=== PATIENT | female | born 1970 | race Two or more races ===

== ENCOUNTER 2024-02-11 07:49 | Outpatient (REF) | payer OTHER, SELFPAY ==
--- NOTE | ~2024-02-11 | XR_ITS ---
EXAMINATION: XR KNEE, LEFT CLINICAL INFORMATION: Chronic left knee pain. COMPARISON: None available. TECHNIQUE: Four views of the left knee. FINDINGS: No acute fracture or dislocation. No significant joint space narrowing. Tiny patellofemoral and medial compartment marginal osteophytes. No osseous erosion. No abnormal soft tissue calcification. No significant joint effusion. XR/XR knee LT 4V IMPRESSION: Minimal patellofemoral and medial compartment arthrosis.
[2024-02-11 08:17] LABS: MANUAL DIFF FLAG NO
[2024-02-11 08:28] LABS: Basophils Absolute Auto 0.1 X10*3/uL (0.0-0.2); Basophils Percent Auto 0.9 % (0-2); Eosinophils Absolute Auto 0.3 X10*3/uL (0.0-0.4); Eosinophils Percent Auto 3.9 % (0-4); Hematocrit 37.5 % (37.0-47.0); Hemoglobin 12.1 g/dl (12.0-16.0); Imm Gran Abs Auto 0.02 X10*3/uL (0.00-0.03); Imm Gran Pct Auto 0.3 % (0.0-0.4); Lymphocytes Absolute Auto 2.2 X10*3/uL (1.2-4.9); Lymphocytes Percent Auto 27.8 % (20-40); Mean Corpuscular HGB Conc 32.3 g/dl (31.0-35.0); Mean Corpuscular Hemoglobin 29.5 pg (27.0-33.0); Mean Corpuscular Volume 91.5 fL (80.0-98.0); Mean Platelet Volume 10.3 fL (9.4-12.3); Monocytes Absolute Auto 0.6 X10*3/uL (0.1-1.2); Monocytes Percent Auto 7.3 % (2-11); Neutrophils Absolute Auto 4.6 x10*3/uL (2.0-8.3); Neutrophils Percent Auto 59.8 % (45-73); Platelet Count 373 X10*3/uL (160-400); Red Cell Distribution Width 12.5 % (11.0-16.0); White Blood Count 7.8 X10*3/uL (4.8-10.8)
[2024-02-11 08:42] LABS: Estimated Average Glucose 105 mg/dL; Hemoglobin A1c % 5.3 % (<6.0)
[2024-02-11 09:20] LABS: Alanine Aminotransferase 21 U/L (0-31); Albumin Level 3.8 g/dL (3.5-5.0); Alkaline Phosphatase 69 U/L (39-117); Anion Gap 10 (12-20); Aspartate Amino Transferase 21 U/L (5-31); Bilirubin Total 0.6 mg/dL (0.0-1.0); Blood Urea Nitrogen 17 mg/dL (9-16); Calcium 9.1 mg/dL (8.4-10.2); Carbon Dioxide 26 mmol/L (22-29); Chloride 107 mmol/L (96-108); Cholesterol 199 mg/dL (<200); Estimated Glomerular Filt Rate > 60; Glucose Random 101 mg/dL (60-115); HDL Cholesterol 64 mg/dL (>40); LDL Cholesterol Calculated 109 mg/dL (<100); Potassium 4.9 mmol/L (3.3-5.1); Sodium 138 mmol/L (135-145); Triglycerides 131 mg/dL (<150)
[2024-02-11 09:35] LABS: TSH reflex Free T4 1.21 uIU/mL (0.32-4.0)
[2024-02-11 10:13] LABS: Appearance Urine Clear; Color Urine Yellow; Glucose Urine UA Negative (Negative); Leukocyte Esterase Urine Negative (Negative); Nitrite Urine Negative (Negative); Urine Blood Negative (Negative); Urine Ketones Negative (Negative); Urine Protein Negative (Neg-Trace)
[2024-02-11 10:30] LABS: Bacteria Urine Trace (None Seen); Hyaline Casts Urine 0-2 /LPF (0-2); RBC Urine 0-2 /HPF (0-2); WBC Urine 0-5 /HPF (0-5)
[2024-02-17 14:38] LABS: Vitamin D 25-OH, D2 <4 ng/mL; Vitamin D 25-OH, D3 34 ng/mL; Vitamin D 25-OH, Total 34 ng/mL (30-100)
== END 2024-02-11 07:50 | disposition home or self-care (01) ==
LOC: HO.XRAY 07:49
PROVIDERS: PCP Family Medicine; Visit Provider Family Medicine
DX: Z13.6 Encounter for screening for cardiovascular disorders (principal); Z13.29 Encounter for screening for other suspected endocrine disorder; Z13.220 Encounter for screening for lipoid disorders; Z13.0 Encounter for screening for diseases of the blood and blood-forming organs and certain disorders involving the immune mechanism; M25.562 Pain in left knee; G89.29 Other chronic pain; E66.9 Obesity, unspecified; Z68.32 Body mass index [BMI] 32.0-32.9, adult
CPT/HCPCS: 36415; 73564; 80053; 80061; 81001; 82306; 83036; 84443; 85025

== ENCOUNTER 2024-03-02 10:03 | Outpatient (REF) | payer OTHER, SELFPAY ==
--- NOTE | ~2024-03-02 | MM_ITS ---
EXAMINATION: MM SCREENING DIGITAL BREAST TOMOSYNTHESIS, BILATERAL CLINICAL INFORMATION: Screening. Asymptomatic. COMPARISON: Mammography: There are no prior mammograms for comparison. TECHNIQUE: Digital breast tomosynthesis is performed in both the craniocaudal and mediolateral oblique views along with computer-aided detection (CAD). Synthesized 2D images are generated from the tomosynthesis. FINDINGS: There are scattered areas of fibroglandular density (ACR BI-RADS breast composition Category b). There are no significant masses, abnormal calcifications, or other abnormalities. MM/MM tomosynthesis screening BI IMPRESSION: No mammographic evidence of malignancy. ASSESSMENT: BI-RADS BI-RADS 1 - Negative RECOMMENDATION: Routine annual mammography screening. 1 year F/U This examination should not preclude the clinical evaluation of a suspicious palpable abnormality. This patient's information was entered into a reminder system with a target due date for their next mammogram.
== END 2024-03-02 10:04 | disposition home or self-care (01) ==
LOC: HO.MAMMO 10:03
PROVIDERS: PCP Family Medicine; Visit Provider Family Medicine
DX: Z12.31 Encounter for screening mammogram for malignant neoplasm of breast (principal)
CPT/HCPCS: 77063; 77067

== ENCOUNTER → 2024-03-02 10:15 | Outpatient (BNV) | payer OTHER, SELFPAY | PROVIDERS: PCP Family Medicine; Visit Provider Radiology Diagnostic Radiology | DX: Z12.31 Encounter for screening mammogram for malignant neoplasm of breast (principal) | CPT/HCPCS: 77063; 77067 ==

== ENCOUNTER 2024-03-19 15:36 | Outpatient (REF) | payer OTHER, SELFPAY ==
[2024-03-23 02:24] LABS: HPV mRNA E6/E7 rflx Not Detected (Not Detected)
== END 2024-03-19 15:37 | disposition home or self-care (01) ==
LOC: HO.HHCLNP 15:36
PROVIDERS: Visit Provider Family Medicine
DX: Z12.4 Encounter for screening for malignant neoplasm of cervix (principal); Z11.51 Encounter for screening for human papillomavirus (HPV)
CPT/HCPCS: 87624; 88142

== ENCOUNTER 2024-04-03 09:00 | Outpatient (RCR) | payer OTHER, SELFPAY | END 2024-04-17 15:56 | disposition home or self-care (01) | LOC: HO.PT 09:00 | PROVIDERS: PCP Family Medicine; Visit Provider Family Medicine | DX: M25.562 Pain in left knee (principal) | CPT/HCPCS: 97110; 97112; 97161 ==

== ENCOUNTER 2024-07-20 10:21 | Outpatient (REF) | payer OTHER, SELFPAY ==
--- NOTE | ~2024-07-20 | XR_ITS ---
EXAMINATION: XR KNEE, LEFT CLINICAL INFORMATION: left knee pain. COMPARISON: xray february 11 2024 TECHNIQUE: Four views of the left knee. FINDINGS: No acute fracture or dislocation. No significant joint space narrowing. Tiny patellofemoral and medial compartment marginal osteophytes. No osseous erosion. No abnormal soft tissue calcification. No significant joint effusion. XR/XR knee LT 4V IMPRESSION: Minimal patellofemoral and medial compartment arthrosis.no change Electronically signed by: Thony Keith MD 07/26/2024 08:28 PM EDT
== END 2024-07-20 10:22 | disposition home or self-care (01) ==
LOC: HO.XRAY 10:21
PROVIDERS: PCP Family Medicine; Visit Provider General Practice
DX: M25.562 Pain in left knee (principal)
CPT/HCPCS: 73564

== ENCOUNTER 2024-08-10 12:40 | Outpatient (REF) | payer OTHER, SELFPAY ==
--- NOTE | 2024-08-10 12:43 | EMG_ITS ---
Chief complaint: Left hand numbness History of right CTR more than 10 years ago. Reason for referral: Evaluate for Carpal Tunnel Syndrome Referred by: Dr. Lyles Procedure done: Left upper extremity NCS/EMG Precautions and/or limitations: None The limb temperature was monitored continuously and remained between 32-36 degrees C during the performance of the NCS. Nerve Conduction Studies Anti Sensory Summary Table ?Stim Site NR Onset (ms) Norm Onset (ms) Peak (ms) Norm Peak (ms) O-P Amp (?V) Norm O-P Amp Site1 Site2 Delta-0 (ms) Dist (cm) Chad (m/s) Norm Chad (m/s) Left Median Anti Sensory (2nd Digit) Wrist ? 3.7 4.6 <3.6 10.1 >10 Wrist 2nd Digit 3.7 14.0 38 Left Radial Anti Sensory (Thumb) Forearm ? 2.1 2.6 <3.1 21.1 Forearm Thumb 2.1 0.0 Left Ulnar Anti Sensory (5th Digit) Wrist ? 2.8 3.5 <3.7 41.9 >15.0 Wrist 5th Digit 2.8 14.0 50 Motor Summary Table ?Stim Site NR Onset (ms) Norm Onset (ms) O-P Amp (mV) Norm O-P Amp iAmp (mV) Amp (1st) (%) Site1 Site2 Delta-0 (ms) Dist (cm) Chad (m/s) Norm Chad (m/s) Left Median Motor (Abd Poll Brev) Wrist ? 5.5 <3.9 9.5 >4.5 12.0 100.0 Elbow Wrist 3.3 19.0 58 >45 Elbow ? 8.8 10.4 13.9 109.5 Left Ulnar Motor (Abd Dig Minimi) Wrist ? 2.8 <3.0 6.9 >5 8.7 100.0 B Elbow Wrist 3.3 17.0 52 >45 B Elbow ? 6.1 6.3 8.4 91.3 A Elbow B Elbow 1.8 10.0 56 >45 A Elbow ? 7.9 6.0 8.2 87.0 EMG ?Side Muscle Nerve Root Ins Act Fibs Psw Amp Dur Poly Recrt Int Pat Comment Left 1stDorInt Ulnar C8-T1 Nml Nml Nml Nml Nml 0 Nml Complete Left FlexCarRad Median C6-7 Nml Nml Nml Nml Nml 0 Nml Complete Left Biceps Musculocut C5-6 Nml Nml Nml Nml Nml 0 Nml Complete Left Triceps Radial C6-7-8 Nml Nml Nml Nml Nml 0 Nml Complete Left Deltoid Axillary C5-6 Nml Nml Nml Nml Nml 0 Nml Complete FINDINGS: Left median motor nerve showed prolonged distal latency, normal amplitude and normal conduction velocity. All other nerves tested were within normal. Concentric needle EMG was performed in selected muscles of the left upper extremity. Study did not reveal signs of electric abnormalities as shown in the table above. IMPRESSION: 1. This is an abnormal study. 2. There is electrodiagnostic evidence for left moderate-severe median neuropathy at the wrist, consistent with carpal tunnel syndrome. 3. There is no electrodiagnostic evidence for ulnar neuropathy, brachial plexopathy, or cervical radiculopathy. Thank you for your kind referral. Candy Manley MD, SARAH Board Certified, [place] Board [employer] and Rehabilitation (ABPMR) Board Certified, [place] Board of Electrodiagnostic Medicine (ABEM) CODIN [id number] [facility]
== END 2024-08-10 12:41 | disposition home or self-care (01) ==
LOC: HO.NEURO 12:40
PROVIDERS: PCP Family Medicine; Visit Provider General Practice
DX: R20.2 Paresthesia of skin (principal)
CPT/HCPCS: 95886; 95909

== ENCOUNTER → 2024-08-10 12:43 | Outpatient (BNV) | payer OTHER, SELFPAY | PROVIDERS: PCP Family Medicine; Visit Provider Physical Medicine & Rehabilitation | DX: G56.02 Carpal tunnel syndrome, left upper limb (principal) | CPT/HCPCS: 95886; 95909 ==

== ENCOUNTER 2025-01-16 15:02 | Outpatient (REF) | payer OTHER, SELFPAY ==
--- NOTE | ~2025-01-16 | US_ITS ---
CLINICAL HISTORY: AUB US pelvis transabdominal and transvaginal with Doppler Comparison: None Findings: Transabdominal scanning performed for overall anatomy. Transvaginal scanning performed for additional detail. Anteverted uterus is 9.5 cm length. Normal myometrium. Calcification within the lower uterine segment spanning 9 mm x 7 mm x 13 mm. No endometrial lesion, 6 mm thickness. Right ovary 2.2 x 0.9 x 1.3 cm. Left ovary 2.4 x 1.5 x 2.0 cm. Normal color Doppler with arterial/venous spectral tracing of both ovaries. No free fluid. IMPRESSION: 1. No acute process. 2. Lower uterine segment calcifications, which are indeterminate. This document has been electronically signed by: Gabriella Hackett MD on 01/16/2025 17:12:02
--- OUTSIDE RECORDS SUMMARY | 2025-01-16 17:41 | XMS_ITS | Encounter Summary ---
Author Organization [employer] [facility] [employer] Address [address] [place] [address] Care Team Providers Care Surface Miner Name Role Phone Namita Castañeda MD Primary Care Provider [phone] Encounter Details Date Type Department Care Team (Latest Contact Info) Description 2025 Travel Social History Tobacco Use Types Packs/Day Years Used Date Smoking Tobacco: Never Passive Smoke Exposure: Never Smokeless Tobacco: Never Alcohol Use Standard Drinks/Week Comments Never 0 (1 standard drink = 0.6 oz pur e alcohol) Depression Answer Date Recorded Patient Health Questionnaire-9 Score 0 02/10/2024 Patient Health Questionnaire-9 Score 0 02/10/2024 Last PHQ-9: Questionnaire Data Not on file 0 02/10/2024 Housing Stability Answer Date Recorded What is your housing situation today? I have garrett asher 01/31/[address] you li ve. Do you have problems with any of the following? None of the above 01/31/2024 Food Insecurity Answer Date Recorded Within the past 12 months, y ou worried that your food would run out before you got money to buy more: Never True 01/31/2024 Within the past 12 months,th e food you bought just didn't last and you didn't have enough money to get more: Never True Transportation Answer Date Recorded In the past 12 months, has l ack of transportation kept you from medical appts, meetings, work or from getting things needed for daily living? No 01/31/2024 Utilities Answer Date Recorded In the past 12 months, has t he electric, gas, oil or water company threatened to shut off services in your home? No 01/31/2024 Depression Answer Date Recorded Patient Health Questionnaire-2 Score 0 02/10/2024 Comments No Sex and Gender Information Value Date Recorded Sex Assigned at Female 06/21/2023 11:45 AM EDT Legal Sex Female 11:57 AM EDT Gender Identity Female 06/21/2023 11:45 AM EDT Sexual Orientation Straight 07/31/2024 9: 56 AM EDT Occupation Industry Job Start Date Job End Date Not on file Not on file Not on file Not on file documented as of this encounter Plan of Treatment Not on file documented as of this encounter Visit Diagnoses Not on filedocumented in this encounter Additional Health Concerns Assessment Noted Time PHQ-9 Depression Total Score: 0 02/10/20 1:20 PM EDT documented as of this encounter Care Teams Surface Miner Relationship Specialty Start Date End Date Namita Castañeda MD [address] [place] [address] PCP - General Family Medicine 02/10/24 documented as of this encounter
--- OUTSIDE RECORDS SUMMARY | 2025-01-16 17:41 | XMS_ITS | Encounter Summary ---
Author Organization [employer] Address [address] [place] [address] Care Team Providers Care Ophthalmology Surgical Technician Name Role Phone Namita Castañeda MD Primary Care Provider [phone] Reason for Visit * Reason Comments Routine Cleaning Dental Exam Encounter Details Date Type Department Care Team ([facility] Contact Info) Description 01/14/2025 9:00 AM EDT Office Visit [facility] [address] [place] [address] Mariel Marshall Social History Tobacco Use Types Packs/Day Years [...] on file documented as of this encounter Last Filed Vital Signs Vital Sign Reading Time Taken Comments Blood Pressure 128/72 01/14/2025 9:08 AM EDT Pulse - - Temperature - - Respiratory Rate - - Oxygen Saturation - - Inhaled Oxygen Concentration - - Weight - - Height - - Body Mass Index - - documented in this encounter Progress Notes * Mariel Marshall - 01/14/2025 9:00 AM EDT Patient ID: Ling Knott is a 55 y.o. female. Time Out: Timeout Date: 01/14/25, Timeout Time: 905 Location: [facility] Tooth: Maxilla and Mandible Procedure: Prophylaxis Verified the above with patient, produce assistant, and provider. Confirmed via patient's chart, intraorally and by radiographs. Biofuels Technology Manager: Yes. Language: Bermudian. Biofuels Technology Manager's Name: Love. Medical Hx: Vitals: Blood pressure 128/72, last menstrual period 12/31/2024. Medications, Med Hx reviewed with patient and updated in chart. Treatment Provided Dental procedures in this visit D1110 - PROPHYLAXIS - ADULT (Completed) Service provider: Mariel Lee provider: Alan Copeland DMD D1330 - ORAL HYGIENE INSTRUCTIONS (Completed) Service provider: Mariel Lee provider: Alan Copeland DMD Instruments Used: Ultrasonic Scalers, Hand Scalers, and Prophy angle Fluoride: N/A Oral Cancer Screening: No lesions Head/Neck Exam: No Lesions Calculus: Light and Generalized Plaque: Light and Localized Stain: Light and Localized Bleeding: Light and Localized Gingiva: Healthy OH: Good Perio Chart: Not Completed- Completed on 07/16/2024. Oral hygiene instructions provided to patient including brushing technique and flossing. Recommendations: Troup two times daily, modified keane technique, Floss daily, Electric toothbrush, Soft bristle toothbrush, Troup Tongue, Anti-sensitivity toothpaste Recall Frequency: 6 mo NV: Restorations Hygienist: Mariel Marshall RDH documented in this encounter Plan of Treatment Not on file documented as of this encounter Procedures Procedure Name Priority Date/Time Associated Diagnosis Comments PROPHYLAXIS - ADULT Routine 01/14/2025 9 :00 AM EDT ORAL HYGIENE INSTRUCTIONS Routine 2024 9:00 AM EDT documented in this encounter Visit Diagnoses Not on filedocumented in this encounter Additional Health Concerns Assessment Noted Time PHQ-9 Depression Total Score: 0 02/10/20 24 1:20 PM EDT documented as of this encounter Care Teams Ophthalmology Surgical Technician Relationship Specialty Start Date End Date Namita Castañeda MD [address] [place] [id number] PCP - General Family Medicine 02/10/24 documented as of this encounter
--- OUTSIDE RECORDS SUMMARY | 2025-01-16 17:41 | XMS_ITS | Encounter Summary ---
Author Organization [employer] [facility] Address [address] [place] [address] [address] [place] [address] Care Team Providers Care Promotion Manager Name Role Phone Namita Castañeda MD Primary Care Provider [phone] Reason for Referral * Imaging (Urgent) - Closed Specialty Diagnoses / Procedures Referred By Contac t Referred To Contact Radiology Diagnoses Abnormal uterine bleeding Procedures Us Pelvis complete Gisella Ma CNM [address] [place] [address] Phone: tel: fax: [address] Phone: tel: fax: Referral ID Status Reason Start Date Expiration Date Visits Re quested Visits Authorized [id number] Closed 2025 2026 1 1 * Imaging (Urgent) - Closed Specialty Diagnoses / Procedures Referred By Contac t Referred To Contact Radiology Diagnoses Abnormal uterine bleeding Procedures US Pelvis Transvaginal Gisella Ma CNM [address] [place] [address] Phone: tel: fax: [address] Phone: tel: fax: Referral ID Status Reason Start Date Expiration Date Visits Re quested Visits Authorized [id number] Closed 2025 2026 1 1 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 Encounter Details Date Type Department Care Team (Late st Contact Info) Description 2025 10:30 AM EST Office [facility] [address] [place] [address] Gisella Ma CNM [address] [place] [address] Abnormal uterine bleeding (Primary Dx) Social History Tobacco Use Types Packs/Day Years [...] Sign Reading Time Taken Comments Blood Pressure 129/74 2025 10:38 AM EST Pulse 72 2025 10:38 AM EST Temperature 36.4 ??C (97.5 ??F) 2025 10:[address] Respiratory Rate 16 2025 10:38 AM EST Oxygen Saturation 98% 2025 10:38 AM EST Inhaled Oxygen Concentration - - Weight 85.5 kg (188 lb 6.4 oz) 2025 10:38 AM EST Height 162.6 cm (5' 4 ) 2025 10:38 AM EST Body Mass Index 32.34 2025 10:38 AM EST documented in this encounter Progress Notes * Gisella Ma CNM - 2025 10:30 AM EST Subjective Patient ID: Ling Knott is a 55 y.o. female who presents for AUB LMP 12/31, still bleeding today. Previous menses 09/2024. Monthly menses x 3 days prior to that. No vasomotor symptoms. Using 3-4 pads/day. Pap NIL/HPV neg 03/2024. No prior abnormal pap. Normal TSH, hemoglobin/hematocrit 02/2024. 1 longtermAMAB partner, has vasectomy. Notes some dryness with sex, no other vaginal/pelvic symptoms. OTC lubricant is helpful. Possible history of fibroid or ovarian cyst, she is unsure. No family hx cancer. Mammogram BIRADS 1, cat b 02/2024. Review of Systems Constitutional: Negative for fatigue. Genitourinary: Positive for menstrual problem and vaginal bleeding. Negative for dysuria, vaginal discharge and vaginal pain. Neurological: Negative for dizziness and headaches. Objective BP 129/74 (BP Location: Left arm, Patient Position: Sitting, BP Cuff Size: Large adult) Pulse 72 Temp 97.5 ??F (36.4 ??C) (Temporal) Resp 16 Ht 5' 4 (1.626 m) Wt 188 lb 6.4 oz (85.5 kg) LMP 12/31/2024 (Exact Date) SpO2 98% BMI 32.34 kg/m?? Physical Exam Constitutional: Appearance: Normal appearance. Genitourinary: General: Normal vulva. Labia: Right: No rash, tenderness, lesion or injury. Left: No rash, tenderness, lesion or injury. Vagina: Normal. No signs of injury and foreign body. No vaginal discharge, erythema, tenderness, bleeding, lesions or prolapsed vaginal jeff. Cervix: Normal. No cervical motion tenderness, discharge, friability, lesion, erythema, cervical bleeding or eversion. Uterus: Enlarged. Not tender. Adnexa: Right: No mass, tenderness or fullness. Left: No mass, tenderness or fullness. Comments: Slightly bulky uterus. Menses noted. Neurological: Mental Status: She is alert. Psychiatric: Mood and Affect: Mood normal. Behavior: Behavior normal. Assessment/Plan Diagnoses and all orders for this visit: Abnormal uterine bleeding - US Pelvis Transvaginal; Future - Us Pelvis complete; Future Will get ultrasound today. Reviewed normal vs abnormal perimenopausal bleeding changes. Ibuprofen rx sent in. Let me know if not helpful. Report prolonged/frequent/heavy bleeding, or bleeding after ayear of no bleeding. Reviewed will likely need referral to [facility] for Endometrial biopsy after ultrasound. documented in this encounter Plan of Treatment Scheduled Orders Name Type Priority Associated Diagnoses Orde r Schedule Us Pelvis complete Imaging Urgent Abnormal uterine bleeding Expected: 2025, Expires: 2026 documented as of this encounter Procedures Procedure Name Priority Date/Time Associated Diagnosis Comments US PELVIS TRANSVAGINAL Urgent 01/16/2025 5:12 PM EDT Abnormal uterine bleeding documented in this encounter Results * US Pelvis Transvaginal (01/16/2025 5:12 PM EDT) Anatomical Region Laterality Modality Pelvis Ultrasound 01/16/2025 5:12 PM EDT Narrative 01/16/2025 5:13 PM EDT ? [facility] ?[address] ? [place] [address] ? Ultrasound Report ? Signed ? Patient: Knott,Ling I ?MR#: [id number] ?? [id number] ? : 1970 ?Acct:[id number] ? Age/Sex: 55 / F ?ADM Date: 01/16/25 ? Loc: HO.HMGCX ? Attending Dr: Gisella Ma CNM ? Ordering Physician: GISELLA MA CNM ?? Date of Service: 01/16/25 ?? Procedure(s): US pelvic and transvaginal ?? Accession Number(s): [id number] ? cc: GISELLA MA CNM; Namita Castañeda MD ? CLINICAL HISTORY: AUB ? US pelvis transabdominal and transvaginal with Doppler ? Comparison: None ? Findings: ?? Transabdominal scanning performed for overall anatomy. Transvaginal ?? scanning performed for additional detail. ? Anteverted uterus is 9.5 cm length. ?? Normal myometrium. Calcification within the lower uterine segment spanning ?? 9 mm x 7 mm x 13 mm. ?? No endometrial lesion, 6 mm thickness. ? Right ovary 2.2 x 0.9 x 1.3 cm. ?? Left ovary 2.4 x 1.5 x 2.0 cm. ?? Normal color Doppler with arterial/venous spectral tracing of both ?? ovaries. ? No free fluid. ? IMPRESSION: ?? 1. No acute process. ?? 2. Lower uterine segment calcifications, which are indeterminate. ? This document has been electronically signed by: Gabriella Hackett MD on ?? 01/16/2025 17:12:02 ? Dictated By: ?Gabriella Hackett MD ? Signed By: ?<Electronically signed by Gabriella Hackett MD in OV> ? 01/16/25 1713 ? DD/ 11 ? TD/TT: 01/16/251711 ? It Consultant: ? Procedure Note Delroy Padilla - 01/16/2025 [facility] [address] [place] [address] Ultrasound Report Signed Patient: Ling Knott IMR#: [id number] : 1970Acct:[id number] Age/Sex: 55 / FADM Date: 01/16/25 Loc: HO.HMGCX Attending Dr: Gisella Ma CNM Ordering Physician: GISELLA MA CNM Date of Service: 01/16/25 Procedure(s): US pelvic and transvaginal Accession Number(s): [id number] cc: GISELLA MA CNM; Namita Castañeda MD CLINICAL HISTORY: AUB US pelvis transabdominal and transvaginal with Doppler Comparison: None Findings: Transabdominal scanning performed for overall anatomy. Transvaginal scanning performed for additional detail. Anteverted uterus is 9.5 cm length. Normal myometrium. Calcification within the lower uterine segment spanning 9 mm x 7 mm x 13 mm. No endometrial lesion, 6 mm thickness. Right ovary 2.2 x 0.9 x 1.3 cm. Left ovary 2.4 x 1.5 x 2.0 cm. Normal color Doppler with arterial/venous spectral tracing of both ovaries. No free fluid. IMPRESSION: 1. No acute process. 2. Lower uterine segment calcifications, which are indeterminate. This document has been electronically signed by: Gabriella Hackett MD on 01/16/2025 17:12:02 Dictated By: Gabriella Hackett MD Signed By: <Electronically signed by Gabriella Hackett MD in OV> 01/16/251712 DD/ 171 TD/TT: 01/16/251711 It Consultant: us Gisella Ma CNM IMG US PROCEDURES Final R esult documented in this encounter Visit Diagnoses Diagnosis Abnormal uterine bleeding- Primary Unspecified disorder of menstruation and other abnormal bleeding from female genital tract documented in this encounter Additional Health Concerns Assessment Noted Time PHQ-9 Depression Total Score: 0 02/10/20 1:20 PM EDT documented as of this encounter Care Teams Promotion Manager Relationship Specialty Start Date End Date Namita Castañeda MD [address] [place] [address] PCP - General Family Medicine 02/10/24 documented as of this encounter
--- OUTSIDE RECORDS SUMMARY | 2025-01-16 17:41 | XMS_ITS | Clinical Summary ---
Author Organization [employer] Address [address] [place] [address] 7[address] [place] [address] Care Team Providers Care Picture Framer Name Role Phone Namita Castañeda MD Primary Care Provider Allergies No known active allergies Medications ibuprofen (IBU) 800 MG tablet 1 tablet every 8 hours with food x 7 days 21 tablet 2025 Active Active Problems Problem Noted Date Diagnosed Date Localized osteoarthritis of left knee 07/20/2024 Overview (07/20/2024): Mild medial and patellofemoral arthritis Assessment & Plan (07/20/2024 10:12 AM EDT): Start Celebrex 50mg BID daily Stop prn Aleve Recheck xrays today due to swelling, rule out effusion Consider offering injection Paresthesia of left upper extremity 07/20/2024 Assessment & Plan (07/20/2024 10:13 AM EDT): Known OA of elvia shoulders Will evaluate for UE neuropathy with EMG/NCS Dental calculus 07/16/2024 Dental plaque 07/16/2024 Cervical cancer screening 03/15/2024 Assessment & Plan (04/03/2024 8:51 AM EDT): 54 y.o. here for cervical cancer screening. Will continue monitoring following ASCCP guidelines. Breast cancer screening by mammogram 02/10/2024 Assessment & Plan (02/11/2024 2:03 AM EDT): Last Mammogram done previous year. Ordered: BI Mammogram Screening, Tomosynthesis Bilateral. L4-L5 disc bulge 02/10/2024 Chronic right shoulder pain 02/10/2024 Assessment & Plan (02/11/2024 2:07 AM EDT): Symptoms suggestive of synovitis and possible osteoarthritis. Recommend further evaluation with imaging and referral to physical therapy for targeted exercises. Consider follow-up for potential corticosteroid injection if symptoms persist. Class 1 obesity without seri ous comorbidity with body mass index (BMI) of 32.0 to 32.9 in adult 02/10/2024 Assessment & Plan (02/11/2024 2:04 AM EDT): Discussed calorie deficit, recommended reduction of 20-30% of maintenance calories; archery equipment repairer referral offered. Recommended to decrease soda and sugary beverage consumption. Recommended at least 20 g per meal of protein to assist with satiety. Recommended at least 150 min/week of moderate intensity exercise. Labs: CBC, CMP, Lipid panel, TSH, Urinalysis, Vitamin D Screening for endocrine, metabolic and immunity disorder 02/10/2024 Resolved Problems Problem Noted Date Diagnosed Date Resolved Date Carpal tunnel syndrome on left 12/04/2024 01/14/2025 Encounters Date Type Department Care Team Description 01/14/2025 9:00 AM EDT Office Visit [facility] [address] [place] [address] Mariel Marshall 2025 10:30 AM EST Office Visit [facility] [address] [place] [address] [phone] Tonya Ma CNM Abnormal uterine bleeding (Primary Dx) 2025 Travel 01/07/2025 Telephone [facility] [address], [place] [phone] Namita Castañeda MD Appointment Request 12/21/2024 Orders Only [facility] [address] [place] [address] Alan Copeland DMD 12/07/2024 Orders Only [facility] [address] [place] [address] Provider, MD Carito from Last 3 Months Family History Medical History Relation Name Comments Diabetes Father Hypertension Father Diabetes Mother Hypertension Mother Diabetes Sister Relation Name Status Comments Father Mother Sister Social History Tobacco Use Types Packs/Day Years [...] is your housing situation today? I have garrettmarvin asher 01/31/[address] you [...] file Not on file Not on file Last Filed Vital Signs Vital Sign Reading Time Taken Comments Blood Pressure 128/72 01/14/2025 9:08 AM EDT Pulse 72 2025 10:38 AM EST Temperature [...] Mass Index 32.34 2025 10:38 AM EST Plan of Treatment Health Maintenance Due Date Last Done Comments CT Colonography 1971 Colonoscopy 1971 Colorectal Cancer Screening 1971 FIT DNA/Cologuard 1971 FIT 1971 FOBT 1970 HIV Screening 1970 Sigmoidoscopy 1971 Alcohol/Substance Use Screening 1983 Hepatitis C Screening 1989 DTaP/Tdap/Td Vaccines (1 - Tdap) 1990 Hepatitis B Vaccines (1 of 3 - 19+ 3-dose series) 1990 Pneumococcal Vaccine: 50+ Years (1 of 1 - PCV) 2021 Zoster Vaccines (1 of 2) 2021 COVID-19 Vaccine (2023-2 5 season) 2024 Dental Oral Exam 01/14/2025 07/16/2024 Depression Screening 02/09/2025 02/10/2024, 02/10/2024 SDOH Screening 02/09/2025 02/10/2024 Dental X-Ray: Bitewings 07/17/2025 07/16/2024 Dental Prophylaxis 07/18/2025 01/14/2025, 07/16/2024 Tobacco Screening 01/14/2026 01/14/2025 Mammogram 03/02/2026 03/02/2024 Dental X-Ray: Full Mouth 07/17/2027 07/16/2024 Lipid Panel 02/10/2029 02/11/2024 Cervical Cancer Screening 03/15/2029 HPV/Cotest 03/15/2029 03/15/2024 Pap Smear 03/15/2029 03/15/2024 RSV Patients and Patients Aged 60 years or older (1 - 1-dose 75+ series) 2046 Influenza Vaccine Completed 09/14/2024 HIB Vaccines Aged Out No longer eligi ble based on patient's age to complete this topic HPV Vaccines Aged Out No longer eligi ble based on patient's age to complete this topic Hepatitis A Vaccines Aged Out No long er eligible based on patient's age to complete this topic IPV Vaccines Aged Out No longer eligi ble based on patient's age to complete this topic Meningococcal Vaccine Aged Out No juan angel eligible based on patient's age to complete this topic RSV under 20 months Aged Out No longe r eligible based on patient's age to complete this topic Rotavirus Vaccines Aged Out No longer eligible based on patient's age to complete this topic Procedures Procedure Name Priority Date/Time Associated Diagnosis Comments US PELVIS TRANSVAGINAL Urgent 5:12 PM EDT Abnormal uterine bleeding ORAL HYGIENE INSTRUCTIONS Routine 01/14/2025 9:00 AM EDT PROPHYLAXIS - ADULT Routine 01/14/2025 9 :00 AM EDT XR SHOULDER 2 OR MORE VIEWS LEFT Routine 12/04/2024 1:25 PM EST INTRAORAL - COMPLETE SERIES OF RADIOGRAPHIC IMAGES Routine 07/16/2024 10:30 AM EDT Dental calculus Dental plaque Secondary dental caries associated with failed or defective dental shinto Dental caries COMPREHENSIVE ORAL EVALUATION - NEW OR ESTABLISHED PATIENT Routine 07/16/2024 10:30 AM EDT Dental calculus Dental plaque Secondary dental caries associated with failed or defective dental shinto Dental caries HPV MRNA E6/E7 REFLEX TO HPV 16, 18/45 Routine 03/15/2024 4:17 PM EDT PAP SMEAR Routine 03/15/2024 4:17 PM EDT Cervical cancer screening BI MAMMOGRAM SCREENING TOMOSYNTHESIS BILATERAL Routine 03/02/2024 10:25 AM EDT Breast cancer screening by mammogram LIPID PANEL, STANDARD Routine 02/11/2024 8:16 AM EDT Class 1 obesity without serious comorbidity with body mass index (BMI) of 32.0 to 32.9 in adult, unspecified obesity type from Last 3 Months or Most Recently Relevant to Health Maintenance Results * US Pelvis Transvaginal (01/16/2025 5:12 PM EDT) Anatomical Region Laterality Modality Pelvis Ultrasound 01/16/2025 5:12 PM EDT Narrative 01/16/2025 5:13 PM EDT ? [facility] ?[address] [facility] . ? [place] [address] ? Ultrasound Report ? Signed ? Patient: Knott,Ling I ?MR#: [id number] ?? [id number] ? : 1970 ?Acct:[id number] ? Age/Sex: 55 / F ?ADM Date: 01/16/25 ? Loc: HO.HMGCX ? Attending Dr: Tonya Ma CNM ? Ordering Physician: TONYA MA CNM ?? Date of Service: 01/16/25 ?? Procedure(s): US pelvic and transvaginal ?? Accession Number(s): [id number] ? cc: TONYA MA CNM; Namita Castañeda MD ? CLINICAL [...] in OV> ? 01/16/25 1713 ? DD/ 1712 ? TD/TT: 01/16/25 1712 ? Microscopist: ? Procedure Note Donotuseinterpreter, Image - 01/16/2025 [facility] [place] [address] Ultrasound Report Signed Patient: Ling Knott [facility]#: [id number] : 1970Acct:[id number] Age/Sex: 55 / FADM Date: 01/16/25 Loc: HO.HMGCX Attending Dr: Tonya Ma CNM Ordering Physician: TONYA MA CNM Date of Service: 01/16/25 Procedure(s): US pelvic and transvaginal Accession Number(s): [id number] cc: TONYA MA CNM; Namita Castañeda MD CLINICAL HISTORY: [...] signed by Gabriella Hackett MD in OV> 01/16/25 1713 DD/ 1712 TD/TT: 01/16/25 1712 Microscopist: us Tonya Ma CNM IMG US PROCEDURES Final R esult * XR SHOULDER 2 OR MORE VIEWS LEFT (12/04/2024 1:25 PM EST) Anatomical Region Laterality Modality Radiographic Smiley ging us Historical Provider IMEmilie XR PROCEDURES Final R esult * HPV mRNA E6/E7 w/Reflex to HPV Genotypes 16, 18/45 (03/15/2024 4:17 PM EDT) HPV nRNA E6/E7 Not Detected Not Detected [facility] Comment:Methodology: Transcr iption-Mediated AmplificationThis assay detects E6/E7 viral messenger RNA (mRNA) from 14high-risk HPV types (16,18,31,33,35,39,45,51,52,56,58,59,66,68).Cervical sources are required for HPV testing.If a vaginal source from a patient who has had atotal hysterectomy with removal of cervix wassubmitted, please contact the testing laboratoryfor alternative testing options.For additional information, please refer [email or web address](This link if provided for information/educational purposes only.)THIS TEST WAS PERFORMED AT:[facility] [place] [phone] HERNANDEZ MD HPV mRNA E6/E7 [facility] HPV 16 RNA [facility] HPV 18/45 RNA [facility] 03/15/2024 4:17 PM EDT 03/16/2024 7:00 AM EDT Namita Castañeda MD LAB CYTOLOGY ORDERABLES Final Result [facility] [address] [place] [phone] * Pap Smear (03/15/2024 4:17 PM EDT) Swab Cervical swab / Unknown 03/15/2024 4:17 PM EDT 03/16/2024 7:00 AM EDT Narrative [facility] - 03/31/2024 5:47 PM EDT ----- ------- Name: NikosLing I ?Age/Sex: 54/F ? : 1970 Unit#: [id number] ?? Attend Dr: Namita Castañeda MD ?Re03/19/24 ?Status: DEP REF ? Location: HO.HHCLNP ? Disch: ? ----- ------- SPEC : [id number] ? RECD: 03/16/24 ? STATUS: ??SOUT ? REQ NUM: [id number] ? MILLER: 03/15/24 ? SUBM DR: Namita Castañeda MD ? ENTERED: ??03/16/24 ?SP TYPE: Pap Smr ?OTHR : ? ORDERED: ??Pap Smear ? Interpretation ?? Satisfactory for evaluation. ?? No endocervical cells seen. ?? Negative for intraepithelial lesion or malignancy. ? HPV mRNA E6/E7: ?NOT DETECTED ? This assay detects E6/E7 viral messenger RNA (mRNA) from 14 high-risk HPV types (16, 18, ?? 31, 33, 35, 39, 45, 51, 52, 56, 58, 59, 66, 68) ? HPV testing performed by [facility], [place], [place]. ??See reference laboratory ?? portion of the EMR for entire report. ?Clinical Information LMP: Unknown date Previous PAP test: Unknown date, WNL ? Material Received ?? ThinPrep-Vaginal/Cervical ----- ------- Signed (signature on file) Tory Becerril Geno 03/31/241746 ? ----- ------- ? END OF REPORT ? us Namita Castañeda MD LAB CYTOLOGY ORDERABLES Final Result [facility] [address] [place] [address] [phone] * BI Mammogram Screening Tomosynthesis Bilateral (03/02/2024 10:25 AM EDT) Anatomical Region Laterality Modality Breast Bilateral Mammography 03/02/2024 10:2 5 AM EDT Narrative 04/01/2024 6:07 AM EDT ? [facility] ? [address] ?[place] [address] ? Mammography Report ? Signed ? Patient: Ling Knott I ?MR#: [id number] ?? [id number] ? : 1970 ?Acct:[id number] ? Age/Sex: 54 / F ?ADM Date: 03/02/24 ? Loc: HO.MAMMO ? Attending Dr: Namita Castañeda MD ? Ordering Physician: Namita Castañeda MD ?Results: 1Nega ?? tive ? Date of Service: 03/02/24 ?Follow Up: 1 Year From Orig ?? inal Mammogram ? Procedure(s): MM tomosynthesis screening BI ?? Accession Number(s): [id number] ? cc: Namita Castañeda MD ? EXAMINATION: ?? MM SCREENING DIGITAL BREAST TOMOSYNTHESIS, BILATERAL ? CLINICAL INFORMATION: ? Screening. Asymptomatic. ? COMPARISON: ?? Mammography: There are no prior mammograms for comparison. ? TECHNIQUE: ?? Digital breast tomosynthesis is performed in both the craniocaudal and ?? mediolateral oblique views along with computer-aided detection (CAD). ?? Synthesized 2D images are generated from the tomosynthesis. ? FINDINGS: ?? There are scattered areas of fibroglandular density (ACR BI-RADS breast ?? composition Category b). ? There are no significant masses, abnormal calcifications, or other ?? abnormalities. ? MM/MM tomosynthesis screening BI ?? IMPRESSION: ?? No mammographic evidence of malignancy. ? ASSESSMENT: ? BI-RADS BI-RADS 1 - Negative ? RECOMMENDATION: ?? Routine annual mammography screening. ? 1 year F/U ? This examination should not preclude the clinical evaluation of a ?? suspicious palpable abnormality. ? This patient's information was entered into a reminder system with a ?? target due date for their next mammogram. ? Dictated By: ?Ary Cobb MD ? Signed By: ?<Electronically signed by Ary Cobb MD in OV> ? 04/01/24 0604 ? DD/ 1025 ? TD/TT: ? Microscopist: ? Procedure Note Randy, Image - 04/01/[address] [facility] [address] [place] [address] Mammography Report Signed Patient: Ling Knott IMR#: [id number] : 1970Acct:[id number] Age/Sex: 54 / FADM Date: 03/02/24 Loc: [facility] Attending Dr: Namita Castañeda MD Ordering Physician: Namita Castañedaults: 1Nega tive Date of Service: 03/02/24Follow Up: 1 Year From Orig inal Mammogram Procedure(s): MM tomosynthesis screening BI Accession Number(s): [id number] cc: Namita Castañeda MD EXAMINATION: MM SCREENING DIGITAL BREAST TOMOSYNTHESIS, BILATERAL CLINICAL INFORMATION: Screening. Asymptomatic. COMPARISON: Mammography: There are no prior mammograms for comparison. TECHNIQUE: Digital breast tomosynthesis is performed in both the craniocaudal and mediolateral oblique views along with computer-aided detection (CAD). Synthesized 2D images are generated from the tomosynthesis. FINDINGS: There are scattered areas of fibroglandular density (ACR BI-RADS breast composition Category b). There are no significant masses, abnormal calcifications, or other abnormalities. MM/MM tomosynthesis screening BI IMPRESSION: No mammographic evidence of malignancy. ASSESSMENT: BI-RADS BI-RADS 1 - Negative RECOMMENDATION: Routine annual mammography screening. 1 year F/U This examination should not preclude the clinical evaluation of a suspicious palpable abnormality. This patient's information was entered into a reminder system with a target due date for their next mammogram. Dictated By: Ary Cobb MD Signed By: <Electronically signed by Ary Cobb MD in OV> 04/01/24 0604 DD/ 1025 TD/TT: Microscopist: us Namita Castañeda MD IMG BI PROCEDURES Final Resul t * (ABNORMAL) Lipid Panel, Standard (02/11/2024 8:16 AM EDT) Triglycerides 131 <150 mg/dL [facility] Comment:Desirable Triglyceri de: less than 150 mg/dLBorderline High Triglyceride 150-199 mg/dLHigh Triglyceride: 200-499 mg/dLVery High Triglyceride: greater than or equal to 5OO mg/dL Cholesterol 199 <200 mg/dL [facility] Comment:Desirable Cholestero l: less than 200 mg/dLBorderline High Cholesterol: 200-239 mg/dLHigh Cholesterol: greater than 239 mg/dL LDL Cholesterol Calculated 109(H) <100 mg/dL [facility] Comment:Desirable LDL: less than 100 mg/dLNear Optimal/Above Optimal LDL: 110- 129 mg/dLBorderline High LDL: 130-159 mg/dLHigh LDL: 160-189 mg/dLVery High LDL: greater than or equal to 190 mg/dL HDL Cholesterol 64 >40 mg/dL [facility] Comment:Desirable HDL: great er than 40 mg/dL Note: This HDL assay may give artificially low results in patients with liver disease. Blood Venous blood specimen / Unknown 02/11/2024 8:16 AM EDT 02/11/2024 8:16 AM EDT us Namita Castañeda MD LAB BLOOD ORDERABLES Final Re sult [facility] [address] [place] [address] [phone] from Last 3 Months or Most Recently Relevant to Health Maintenance Insurance [facility] Care Teams Picture Framer Relationship Specialty Start Date End Date Namita Castañeda MD [address] [place] [phone] PCP - General Family Medicine 02/10/24
--- OUTSIDE RECORDS SUMMARY | 2025-01-16 17:42 | XMS_ITS | Encounter Summary ---
Author Organization [employer] Address [address] [place] [address] Care Team Providers Care Aircraft Pilot Name Role Phone Namita Castañeda MD Primary Care Provider [phone] Encounter Details Date Type Department Care Team ([facility] Contact Info) Description 12/21/2024 Orders Only [facility] [address] [place] [address] Alan Copeland, DMD [address] [place] [address] Social History Tobacco Use Types Packs/Day Years [...] Patient Health Questionnaire-2 Score 0 02/10/2024 Comments Unknown Sex and Gender Information Value Date Recorded [...] documented as of this encounter Care Teams Aircraft Pilot Relationship Specialty Start Date End Date Namita Castañeda MD [address] [place] [address] PCP - General Family Medicine 02/10/24 documented as of this encounter
--- OUTSIDE RECORDS SUMMARY | 2025-01-16 17:42 | XMS_ITS | Encounter Summary ---
Author Organization [employer] Address [address] [facility] [address] [place] [address] Care Team Providers Care Truss Designer Name Role Phone Namita Castañeda MD Primary Care Provider [phone] Encounter Details Date Type Department Care Team ([facility] st Contact Info) Description 12/07/2024 Orders Only [facility] [address] [place], [place] [phone] Provider, MD Carito Social History Tobacco Use Types Packs/Day Years [...] Procedure Name Priority Date/Time Associated Diagnosis Comments XR SHOULDER 2 OR MORE VIEWS LEFT Routine 12/04/2024 1:25 PM EST documented in this encounter Results * XR SHOULDER 2 OR MORE VIEWS LEFT (12/04/2024 1:25 PM EST) Anatomical Region Laterality Modality Radiographic Smiley ging us Historical Provider MD FELIZ XR PROCEDURES Final R esult documented in this encounter Visit Diagnoses Not on filedocumented in this encounter Additional Health Concerns Assessment Noted Time PHQ-9 Depression Total Score: 0 02/10/20 1:20 PM EDT documented as of this encounter Care Teams Truss Designer Relationship Specialty Start Date End Date Namita Castañeda MD [address] [place] [phone] PCP - General Family Medicine 02/10/24 documented as of this encounter
--- OUTSIDE RECORDS SUMMARY | 2025-01-16 17:42 | XMS_ITS | Encounter Summary ---
Author Organization [facility] Address [address] [place] [address] Care Team Providers Care Online Merchandising Coordinator Name Role Phone Namita Castañeda MD Primary Care Provider [phone] Reason for Visit * Consultation (Routine) - Authorized Specialty Diagnoses / Procedures Referred By Daya campos Referred To Contact Occupational Therapy Diagnoses Rotator cuff tendonitis, left Christa Jones MD [address] [facility] [address] [place] [address] Phone: tel: fax: Referral ID Status Reason Start Date Expiration Date Visits Requested Visits Authorized [id number] Authorized Specialty Services Required 12/04/2024 05/06/2025 60 60 Encounter Details Date Type Department Care Team (Late st Contact Info) Description 12/31/2024 8:30 AM EST Treatment [facility] Occupational Therapy [address] [facility] [address] [place] [address] Marcus Abbott, OT Rotator cuff tendonitis, left (Primary Dx) Social History Tobacco Use Types Packs/Day Years Used Date Smoking Tobacco: Never Assessed Comments Unknown Sex and Gender Information Value Date Recorded Sex Assigned at Not on file Legal Sex Female 8:46 AM EST Gender Identity Not on file Sexual Orientation Not on file documented as of this encounter Progress Notes * Marcus Abbott OT - 12/31/2024 8:30 AM EST Images from the original note were not included. [facility] - Outpatient OCCUPATIONAL THERAPY Progress Summary Date: 12/31/2024 Visit Number: 5 Patient Name: Ling Knott : 1970 Age: 54 y.o. Gender: female Diagnosis: ICD-10-CM ICD-9-CM 1. Rotator cuff tendonitis, left M75.82 726.10 Date of Onset: 12/04/2024 Referring Provider: Christa Jones MD Insurance: Payor: [employer] [employer] / Plan: [place] [employer] / Product Type: *No Product type* / Language: Pt. speaks Cymraes as preferred language, however declines appeals assistant Medications: Current Outpatient Medications on File Prior to Visit Medication Sig Dispense Refill celecoxib (CeleBREX) 50 mg capsule Take 1 capsule (50 mg total) by mouth 2 (two) times a day. No current facility-administered medications on file prior to visit. Allergies: has No Known Allergies. 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 Left 30 pounds OT Shoulder ROM: Right Left AROM PROM SHOULDER AROM PROM WNL WNL Flexion 140 155 WNL WNL Extension 55 NT WNL WNL Scaption NT NT WNL WNL Abduction 120 150 WNL WNL Internal Rotation To stomach To stomach WNL WNL External Rotation 65 75 OT Elbow/forearm ROM B WFL OT Wrist ROM B WFL OT Digit ROM B WFL Strength R UE 5/5 throughout L sh 3-/5 L elbow to digits 5/5 5/5: Normal - Full ROM and tolerates maximum resistance 4/5: Good - Full ROM and tolerates moderate resistance 4-/5: Good Minus - Full ROM and tolerates less than moderate resistance Breaks with resistance 3+/5: Fair Plus - Full ROM and tolerates minimal resistance Breaks with resistance 3/5: Fair - Full ROM against gravity and tolerates no resistance 3-/5: Fair Minus - < Full ROM against gravity 2+/5: Poor Plus - <50% ROM against gravity OR full ROM gravity eliminated with minimal resistance 2/5: Poor - Full ROM gravity eliminated and tolerates no resistance 2-/5: Poor Minus - < full ROM gravity eliminated 1/5: Trace 0/5: No muscle activation Other Assessments: QuickDASH - Disability of Arm, Shoulder, or Hand Rate your ability to do the following activities in the past week: Open a tight or new jar: 3 - Moderate difficulty Do heavy assurance auditor (eg wash jeff, wash floors) : 3 - Moderate difficulty Carry a shopping bag or briefcase : 3 - Moderate difficulty Wash your back : 2 - Mild difficulty Use a knife to cut food: 1 - No difficulty Recreational activities in which you take some force or impact through your arm, shoulder or hand (eg golf, hammering, tennis, etc) : 3 - Moderate difficulty During the past week, to what extent has your arm, shoulder or hand problem interfered with your normal social activities with family, friends, neighbours or groups? : 2 - Slightly During the past week, were you limited in your work or other regular daily activities as a result of your arm, shoulder or hand problem? : 1 - Not limited at all Rate the severity of the following symptoms in the last week: Arm, shoulder or hand pain : 2 - Mild Tingling (pins and needles) in your arm, shoulder or hand : 4 - Severe During the past week, how much difficulty have you had sleeping because of the pain in your arm, shoulder or hand? : 2 - Mild difficulty QuickDASH Score QuickDASH Score: 34.09 Classification: Moderate Disability TREATMENT INTERVENTION Procedures: U/S To L ant sh 3.3 MHz, 0.8 W/CM2 , 50% pulsed X 8 min to decrease inflammation Therex: Scap retraction, sh circles AROM 3 X 10 reps Supine for serratus punches, circumduction CW/CCW, salutes 3 X 10 reps with 1# Supine for L sh flex AROM Sidelying for L sh abd AROM Standing at wall for sh flex slide up wall Pain Reassessment: No pain at end of session Assessment/Response To Treatment: Good Improved AROM GOALS Goals Addressed This Visit's Progress LTG 20 visits On track Patient will report <=3/10 pain in L sh - Met Patient will demo L sh AROM WFL for light IADLs, Patient will demo L UE strength WFL for light IADLs, Patient will demo L rate supervisor strength >= 25# to be able to hold a pot for cooking - Met Patient will demo improved functional use of L upper extremity as evidenced by Quick Dash score <= 35 to be able to perform light IADLs - Met Patient will perform HEP MOD I STG 4-6 visits On track Patient will report <=5/10 pain in L sh - Met Patient will demo L sh AROMimproved by 10* to don shirt with increased ease - Met Patient will demo L rate supervisor strength >= 15 to be able to hold a cup - Met Patient will demo improved functional use of L upper extremity as evidenced by Quick Dash score <= 70 to be able to wipe the counters - met Patient will perform initial HEP MOD I - Met Patient will report no pain in L sh with activity Patient will demo L sh flex AROM >= 150 to be able to reach the soap into top shelf of cabinet Patient will demo L rate supervisor strength >= 35 to be able to hold a pot for cooking Patient will demo improved functional use of L upper extremity as evidenced by Quick Dash score <= 30 to be able to mop the floor Patient will perform upgraded HEP MOD I Patient Education: Education provided: Yes Education Provided To: Patient utilizing Explanation and Demonstration mode(s) of education Response to Education: Good PLAN POC Development/Review: No Change in the Plan of Care; Participants: Patient Total Treatment Time: 45 Documentation completed by Marcus Abbott OT PATIENT NAME: Ling Knott : 1970 Certification: This is to certify that the above named patient, who is under my care, requires skilled Therapy services as described in the above treatment plan. I further certify that the services outlined in this plan are skilled and medically necessary. I have reviewed this plan for rehabilitation services, and I recommend that these services continue to meet the above stated goals and plan. SIGNATURE: DATE Christa Jones MD Referring provider documented in this encounter Plan of Treatment Upcoming Encounters Date Type Department Care Team (Latest Contact Info) Description 01/17/2025 9:15 AM EDT Treatment [facility] Occupational Therapy [address] [place] [phone] Marcus Abbott OT 02/04/2025 10:15 AM EDT Office Visit Orthopedic Surgery [facility] [address] [phone] Christa Jones MD [address] [phone] 02/26/2025 2:45 PM EDT Consult Orthopedic [facility] [address] [phone] Christa Jones MD [address] [phone] 03/14/2025 2:30 PM EDT Hospital Encounter [facility] [address] [place] [phone] Christa Jones MD [address] [phone] 03/14/2025 2:30 PM EDT - 03/14/2025 3:[address] [facility] Main [place] [address] [place] [phone] Christa Jones MD [address] [phone] ENDOSCOPIC RELEASE LEFT CARPAL TUNNEL [[id number] (CPT??)] 03/25/2025 1:30 PM EDT Office Visit Orthopedic Surgery [facility] [address] [phone] Debra Singletary PA [address] [phone] Scheduled Procedures Name Priority Associated Diagnoses Date/Ti me RELEASE CARPAL TUNNEL ENDOSCOPIC Carpal tunnel syndrome on left 03/14/2025 2:30 PM EDT documented as of this encounter Goals Goal Patient Goal Type Associated Problems Recent Progress Patient-Stated? Author Pt goal General Yes Marcus Abbott, OT Note: To recover 100%; get back to normal physical activity To be in a plan of exercise STG 4-6 visits General On track( 025 9:26 AM EST) Marcus Blanchard, OT Note: Patient will report <=5/10 pain in L sh - Met Patient will demo L sh AROMimproved by 10* to don shirt with increased ease - Met Patient will demo L rate supervisor strength >= 15 to be able to hold a cup - Met Patient will demo improved functional use of L upper extremity as evidenced by Quick Dash score <= 70 to be able to wipe the counters - met Patient will perform initial HEP MOD I - Met Patient will report no pain in L sh with activity Patient will demo L sh flex AROM >= 150 to be able to reach the soap into top shelf of cabinet Patient will demo L rate supervisor strength >= 35 to be able to hold a pot for cooking Patient will demo improved functional use of L upper extremity as evidenced by Quick Dash score <= 30 to be able to mop the floor Patient will perform upgraded HEP MOD I LTG 20 visits General On track( 025 9:28 AM EST) Marcus Blanchard, OT Note: Patient will report <=3/10 pain in L sh - Met Patient will demo L sh AROM WFL for light IADLs, Patient will demo L UE strength WFL for light IADLs, Patient will demo L rate supervisor strength >= 25# to be able to hold a pot for cooking - Met Patient will demo improved functional use of L upper extremity as evidenced by Quick Dash score <= 35 to be able to perform light IADLs - Met Patient will perform HEP MOD I documented as of this encounter Visit Diagnoses Diagnosis Carpal tunnel syndrome on left- Primary Carpal tunnel syndrome Rotator cuff tendonitis, left- Primary Carpal tunnel syndrome on left Carpal tunnel syndrome documented in this encounter Care Teams Online Merchandising Coordinator Relationship Specialty Start Date End Date Namita Castañeda MD [address] [place] [address] PCP - General Family Medicine 09/13/24 documented as of this encounter
--- OUTSIDE RECORDS SUMMARY | 2025-01-16 17:42 | XMS_ITS | Encounter Summary ---
Author Organization [facility] Address [address] [place] [address] Care Team Providers Care Stem Teacher Name Role Phone Namita Castañeda MD Primary Care Provider [phone] Reason for Visit * Consultation (Routine) - Authorized Specialty Diagnoses / Procedures Referred By Daya campos Referred To Contact Occupational Therapy Diagnoses Rotator cuff tendonitis, left Christa Jones MD 175 [facility] [address] [place] [address] Phone: tel: fax: Referral ID Status Reason Start Date Expiration Date Visits Requested Visits Authorized [id number] Authorized Specialty Services Required 12/04/2024 05/06/2025 60 60 Encounter Details Date Type Department Care Team (Late st Contact Info) Description 2025 1:15 PM EST Treatment [facility] Occupational Therapy 175 [facility] [address] [place] [address] Marcus Abbott, OT Rotator cuff [...] Progress Notes * Marcus Abbott OT - 2025 1:15 PM EST [facility] - Outpatient OCCUPATIONAL THERAPY DAILY TREATMENT NOTE Date: 2025 Visit Number: 7 Patient Name: Ling Knott : 1970 Age: 55 y.o. Gender: female Diagnosis: ICD-10-CM ICD-9-CM 1. Rotator cuff tendonitis, left M75.82 726.10 Date of Onset: 12/04/2024 Referring Provider: Christa Jones MD Insurance: Payor: [employer] [place] [employer] / Plan: [place] [employer] GENER[employer] / Product Type: *No Product type* / Patient identified by: Marcus Abbott OT Language: Pt. speaks Portuguese as preferred language, however declines sales contract administrator Allergies: has No Known Allergies. Precautions: None specified SUBJECTIVE Subjective Report: so much better Pain: 0/10 at rest 2/10 with reaching activity OBJECTIVE Pt able to manage personal items MOD I TREATMENT INTERVENTION Procedures: U/S To L ant sh 3.3 MHz, 0.8 W/CM2 , 50% pulsed X 8 min to decrease inflammation Therex: Scap retraction, sh circles AROM 3 X 10 reps Supine for serratus punches, circumduction CW/CCW, salutes all with 1# 2 X 10 reps Supine for L sh flex AROM Supine for L sh abd GE AROM Sidelying for scap mobs L sh flex/ext/IR/ER with level 1 theraband 10 reps Issued for HEP Pain Reassessment: no pain at rest Assessment/Response To Treatment: Good Decreased pain Patient Education: Education provided: Yes Education Provided To: Patient utilizing Explanation, Demonstration, and Printed Material mode(s) of education Response to Education: Good PLAN POC Development/Review: No Change in the Plan of Care; Participants: Patient Equipment Provided: level 1 theraband GOALS Goals Addressed None Total Treatment Time: 45 Documentation completed by Marcus Abbott OT documented in this encounter Plan of Treatment Upcoming Encounters Date Type Department Care Team (Latest Contact Info) Description 01/17/2025 9:15 AM EDT Treatment [facility] Occupational [facility] 175 [facility] 350 [place] [address] Marcus Abbott OT 02/04/2025 10:15 AM EDT Office Visit Orthopedic [facility] 175 [facility] 140 [place] [address] Christa Jones MD 175 [facility] 140 [place] [phone] 02/26/2025 2:45 PM EDT Consult Orthopedic Surgery [facility] [address] [phone] Christa Jones MD [address] [phone] 03/14/2025 2:30 PM EDT Hospital Encounter [facility] Main [place] [address] [place] [phone] Christa Jones MD [address] [phone] 03/14/2025 2:30 PM EDT - 03/14/2025 3:45 PM EDT Surgery [facility] Main OR [address] [place] [phone] Christa Jones MD [address] [phone] ENDOSCOPIC RELEASE LEFT CARPAL TUNNEL [[id number] (CPT??)] 03/25/2025 1:30 PM EDT Office Visit Orthopedic Surgery [facility] [address] [phone] Debra Singletary PA [address] [phone] Scheduled Procedures Name Priority Associated Diagnoses Date/Ti [...] General On track( 025 9:26 AM EST) No Marcus Abbott, OT Note: Patient will report <=5/10 pain in L sh - Met Patient will demo L sh AROMimproved by 10* to don shirt with increased ease - Met Patient will demo L pyrotechnics press tender strength >= 15 to be able to [...] shelf of cabinet Patient will demo L pyrotechnics press tender strength >= 35 to be able to [...] for light IADLs, Patient will demo L pyrotechnics press tender strength >= 25# to be able to [...] syndrome documented in this encounter Care Teams Stem Teacher Relationship Specialty Start Date End Date Namita Castañeda MD [address] [place] [address] PCP - General Family Medicine 09/13/24 documented as of this encounter
--- OUTSIDE RECORDS SUMMARY | 2025-01-16 17:42 | XMS_ITS | Encounter Summary ---
Author Organization [facility] Address [address] [place] [address] Care Team Providers Care Motor Setter Name Role Phone Namita Castañeda MD Primary Care Provider [phone] Encounter Details Date Type Department Care Team (Late st Contact Info) Description 12/26/2024 Telephone Orthopedic Surgery [facility] [address] [facility] [address] [place] [address] Lisa Metzger Social History Tobacco Use Types Packs/Day Years Used Date Smoking Tobacco: Never Assessed Comments Unknown Sex and Gender Information Value Date Recorded Sex Assigned at Not on file Legal Sex Female 8:46 AM EST Gender Identity Not on file Sexual Orientation Not on file documented as of this encounter Progress Notes * Mariah Delvalle - 12/27/2024 1:09 PM EST Ling is calling requesting a call back to schedule surgery with Dr. Jones * Lisa Metzger - 12/26/2024 5:39 PM EST Outreach made to patient to coordinate a date for surgery with Dr. Jones. Voicemail was left asking the patient to call the office back. documented in this encounter Plan of Treatment Upcoming Encounters Date Type Department Care Team (Latest Contact Info) Description 01/17/2025 9:15 AM EDT Treatment [facility] Occupational Therapy 175 [facility] [address] [place] [address] Marcus Abbott OT 02/04/2025 10:15 AM EDT Office Visit Orthopedic Surgery - [place] [address] [phone] Christa Jones MD [address] [phone] 02/26/2025 2:45 PM EDT Consult Orthopedic Surgery [facility] [address] [phone] Christa Jones MD [address] [phone] 03/14/2025 2:30 PM EDT Hospital Encounter [facility] Main OR [address] [place] [phone] Christa Jones MD [address] [phone] 03/14/2025 2:30 PM EDT - 03/14/2025 3:45 PM EDT Surgery [facility] Main OR [address] [place] [phone] Christa Jones MD [address] [phone] ENDOSCOPIC RELEASE LEFT CARPAL TUNNEL [[id number] (CPT??)] 03/25/2025 1:30 PM EDT Office Visit Orthopedic Surgery [facility] [address] [phone] Debra Singletary PA [address] [phone] Scheduled Procedures Name Priority Associated Diagnoses Date/Ti [...] ease - Met Patient will demo L pasta maker strength >= 15 to be able to [...] shelf of cabinet Patient will demo L pasta maker strength >= 35 to be able to [...] for light IADLs, Patient will demo L pasta maker strength >= 25# to be able to hold a pot for cooking - Met Patient will demo improved functional use of L upper extremity as evidenced by Quick Dash score <= 35 to be able to perform light IADLs - Met Patient will perform HEP MOD I documented as of this encounter Visit Diagnoses Not on filedocumented in this encounter Care Teams Motor Setter Relationship Specialty Start Date End Date Namita Castañeda MD [address] [place] [address] PCP - General Family Medicine 09/13/24 documented as of this encounter
--- OUTSIDE RECORDS SUMMARY | 2025-01-16 17:42 | XMS_ITS | Encounter Summary ---
Author Organization [facility] Address [address] [place] [address] Care Team Providers Care Judicial Registrar Name Role Phone Namita Castañeda MD Primary Care Provider [phone] Reason for Visit * Consultation (Routine) - Authorized Specialty Diagnoses / Procedures Referred By Daya campos Referred To Contact Occupational Therapy Diagnoses Rotator cuff tendonitis, left Christa Jones MD 175 [facility] [address] [place] [address] Phone: tel: fax: Referral ID Status Reason Start Date Expiration Date Visits Requested Visits Authorized [id number] Authorized Specialty Services Required 12/04/2024 05/06/2025 60 60 Encounter Details Date Type Department Care Team (Late st Contact Info) Description 12/19/2024 10:30 AM EST Treatment [facility] Occupational Therapy 175 [facility] [address] [place] [address] Jojo Severino COTA Social History Tobacco Use Types Packs/Day Years Used Date Smoking Tobacco: Never Assessed Comments Unknown Sex and Gender Information Value Date Recorded Sex Assigned at Not on file Legal Sex Female 8:46 AM EST Gender Identity Not on file Sexual Orientation Not on file documented as of this encounter Progress Notes * MARIAMA Meeks - 12/19/2024 10:30 AM EST [facility] - Outpatient OCCUPATIONAL THERAPY DAILY TREATMENT NOTE Date: 12/19/2024 Visit Number: 3 Patient Name: Ling Knott : 1970 Age: 54 y.o. Gender: female Diagnosis: 1. Rotator cuff tendonitis, left M75.82 726.10 Date of Onset: 12/04/2024 Referring Provider: Christa Jones MD Insurance: Payor: [facility] Review Trackers / Plan: [place] [employer] GENER[employer] / Product Type: *No Product type* / Language: Pt. speaks Portuguese as preferred language, however declines nurse first assist - session conducted in Danish Allergies: has No Known Allergies. Precautions: None specified SUBJECTIVE Subjective Report: it is getting better Pain: 01/14 OBJECTIVE Able ot manage personal items MOD I TREATMENT INTERVENTION Procedures: To L ant sh 3.3 MHz, 0.8 W/CM2 , 50% pulsed X 8 min to decrease inflammation Therex: Scap retraction, sh circles AROM 3 X 10 reps Supine for serratus punches, circumduction CW/CCW, salutes 2 X 10 reps Supine for L sh flex AROM - partial range Supine for L sh abd GE AROM - partial range Pain Reassessment: decreased 12/17 Assessment/Response To Treatment: Good Decrease pain Patient Education: Education provided: Yes Education Provided To: Patient utilizing Explanation mode(s) of education Response to Education: Good PLAN POC Development/Review: No Change in the Plan of Care; Participants: Patient Equipment Recommended: none; Equipment Provided: none Total Treatment Time: 45 Documentation completed by MARIAMA Meeks documented in this encounter Plan of Treatment Upcoming Encounters Date Type Department Care Team (Latest Contact Info) Description 01/17/2025 9:15 AM EDT Treatment [facility] [address] [address] Marcus Abbott, OT 02/04/2025 10:15 AM EDT Office Visit Orthopedic Surgery [facility] [address] [phone] Christa Jones MD [address] [phone] 02/26/2025 2:45 PM EDT Consult Orthopedic [facility] [address] [phone] Christa Jones MD [address] [phone] 03/14/2025 2:30 PM EDT Hospital Encounter [facility] Main OR [address] [place] [phone] Christa Jones MD [address] [phone] 03/14/2025 2:30 PM EDT - 03/14/2025 3:45 PM EDT Surgery [facility] Main [place] [address] [place] [phone] Christa Jones MD [address] [phone] ENDOSCOPIC RELEASE LEFT CARPAL TUNNEL [[id number] (CPT??)] 03/25/2025 1:30 PM EDT Office Visit Orthopedic Surgery - [place] [address] [phone] Debra Singletary PA [address] [phone] Scheduled Procedures Name Priority Associated Diagnoses Date/Ti [...] ease - Met Patient will demo L pediatric oncology nurse strength >= 15 to be able to [...] shelf of cabinet Patient will demo L pediatric oncology nurse strength >= 35 to be able to [...] for light IADLs, Patient will demo L pediatric oncology nurse strength >= 25# to be able to hold a pot for cooking - Met Patient will demo improved functional use of L upper extremity as evidenced by Quick Dash score <= 35 to be able to perform light IADLs - Met Patient will perform HEP MOD I documented as of this encounter Visit Diagnoses Not on filedocumented in this encounter Care Teams Judicial Registrar Relationship Specialty Start Date End Date Namita Castañeda MD [address] [place] [phone] PCP - General Family Medicine 09/13/24 documented as of this encounter
--- OUTSIDE RECORDS SUMMARY | 2025-01-16 17:42 | XMS_ITS | Encounter Summary ---
Author Organization [facility] Address [address] [place] [address] Care Team Providers Care Library Supervisor Name Role Phone Namita Castañeda MD Primary Care Provider [phone] Reason for Visit * Consultation (Routine) - Authorized Specialty Diagnoses / Procedures Referred By Daya campos Referred To Contact Occupational Therapy Diagnoses Rotator cuff tendonitis, left Christa Jones MD [address] [facility] [address] [place] [address] Phone: tel: fax: Referral ID Status Reason Start Date Expiration Date Visits Requested Visits Authorized [id number] Authorized Specialty Services Required 12/04/2024 05/06/2025 60 60 Encounter Details Date Type Department Care Team (Late st Contact Info) Description 01/02/2025 3:30 PM EST Treatment [facility] Occupational Therapy [address] [facility] [address] [place] [address] Jake Hernandez COTA/Kimberlee Rotator cuff tendonitis, left (Primary Dx) Social History Tobacco Use Types Packs/Day Years Used Date Smoking Tobacco: Never Assessed Comments Unknown Sex and Gender Information Value Date Recorded Sex Assigned at Not on file Legal Sex Female 8:46 AM EST Gender Identity Not on file Sexual Orientation Not on file documented as of this encounter Progress Notes * FLAKO Hua - 01/02/2025 3:30 PM EST [facility] - Outpatient OCCUPATIONAL THERAPY DAILY TREATMENT NOTE Date: 01/02/2025 Visit Number: 6 Patient Name: Ling Knott : 1970 Age: 54 y.o. Gender: female Diagnosis: ICD-10-CM ICD-9-CM 1. Rotator cuff tendonitis, left M75.82 726.10 Date of Onset: 12/04/2024 Referring Provider: Christa Jones MD Insurance: Payor: [employer] [facility] / Plan: [employer] GENERIC / Product Type: *No Product type* / Medications: Current Outpatient Medications on File Prior to Visit Medication Sig Dispense Refill celecoxib (CeleBREX) 50 mg capsule Take 1 capsule (50 mg total) by mouth 2 (two) times a day. No current facility-administered medications on file prior to visit. Allergies: has No Known Allergies. Precautions: None specified SUBJECTIVE Subjective Report: I have no pain Chart Reviewed: Yes Pain: 0 TREATMENT INTERVENTION Procedures: U/S To L ant sh 3.3 MHz, 0.8 W/CM2 , 50% pulsed X 8 min to decrease inflammation Therex: Scap retraction, sh circles AROM 3 X 10 reps Supine for serratus punches, circumduction CW/CCW, salutes 2 X 10 reps With 1# weighted dowel performed Supine for L sh flex AROM Supine for L sh abd GE AROM Pain Reassessment: 0 Assessment/Response To Treatment: Good Patient feels like the pain is getting better at home, educated to continue with exercises. Patient Education: Education provided: Yes Education Provided To: Patient utilizing Explanation mode(s) of education Response to Education: Good PLAN POC Development/Review: No Change in the Plan of Care; Participants: Patient Equipment Recommended: none; Equipment Provided: none Total Treatment Time: 30 TOTAL TREATMENT TIME: 30 Minutes Documentation completed by FLAKO Hua documented in this encounter Plan of Treatment Upcoming Encounters Date Type Department Care Team (Latest Contact Info) Description 01/17/2025 9:15 AM EDT Treatment [facility] [address] [facility] [address] [place] [address] Mracus Abbott OT 02/04/2025 10:15 AM EDT Office Visit Orthopedic Surgery - [place] [address] [facility] [address] [place] [address] Christa Jones MD 175 [facility] [address] [place] [phone] 02/26/2025 2:45 PM EDT Consult Orthopedic Surgery [facility] [address] [address] Christa Jones MD [address] [phone] 03/14/2025 2:30 PM EDT Hospital Encounter [facility] [address] [place] [phone] Christa Jones MD [address] [phone] 03/14/2025 2:30 PM EDT - 03/14/2025 3:45 PM EDT Surgery [facility] Main [place] [address] [place] [phone] Christa Jones MD [address] [address] ENDOSCOPIC RELEASE LEFT CARPAL TUNNEL [[id number] (CPT??)] 03/25/2025 1:30 PM EDT Office Visit Orthopedic Surgery [facility] [address] [phone] Debra Singletary PA [address] [phone] Scheduled Procedures Name Priority Associated Diagnoses Date/Ti [...] ease - Met Patient will demo L shift supervisor melting strength >= 15 to be able to [...] shelf of cabinet Patient will demo L shift supervisor melting strength >= 35 to be able to [...] for light IADLs, Patient will demo L shift supervisor melting strength >= 25# to be able to [...] syndrome documented in this encounter Care Teams Library Supervisor Relationship Specialty Start Date End Date Namita Castañeda MD [address] [place] [phone] PCP - General Family Medicine 09/13/24 documented as of this encounter
--- OUTSIDE RECORDS SUMMARY | 2025-01-16 17:42 | XMS_ITS | Encounter Summary ---
Author Organization [facility] Address [address] [place] [phone] Care Team Providers Care Contract Assistant Name Role Phone Namita Castañeda MD Primary Care Provider [phone] Reason for Visit * Consultation (Routine) - Authorized Specialty Diagnoses / Procedures Referred By Daya campos Referred To Contact Occupational Therapy Diagnoses Rotator cuff tendonitis, left Christa Jones MD 175 [facility] [address] [place] [address] Phone: tel: fax: Referral ID Status Reason Start Date Expiration Date Visits Requested Visits Authorized [id number] Authorized Specialty Services Required 12/04/2024 05/06/2025 60 60 Encounter Details Date Type Department Care Team (Late st Contact Info) Description 01/15/2025 1:45 PM EDT Treatment [facility] Occupational Therapy 175 [facility] [address] [place] [address] Jake Hernandez COTA/Kimberlee Rotator cuff [...] encounter Progress Notes * FLAKO Hua - 01/15/2025 1:45 PM EDT [facility] - Outpatient OCCUPATIONAL THERAPY DAILY TREATMENT NOTE Date: 01/15/2025 Visit Number: 9 Patient Name: Ling Knott : 1970 Age: 55 y.o. Gender: female Diagnosis: ICD-10-CM ICD-9-CM 1. Rotator cuff tendonitis, left M75.82 726.10 Date of Onset: 12/04/2024 Referring Provider: Christa Jones MD Insurance: Payor: [employer] / Plan: [employer] GENERIC / Product Type: *No Product type* / Medications: Current Outpatient Medications on File Prior to Visit Medication Sig Dispense Refill celecoxib (CeleBREX) 50 mg capsule Take 1 capsule (50 mg total) by mouth 2 (two) times a day. No current facility-administered medications on file prior to visit. Allergies: has No Known Allergies. Precautions: None specified SUBJECTIVE Subjective Report: I'm feeling better, no pain Chart Reviewed: Yes Pain: 0 TREATMENT INTERVENTION Procedures: U/S To L ant sh 3.3 MHz, 0.8 W/CM2 , 50% pulsed X 8 min to decrease inflammation Therex: Scap retraction, sh circles AROM 3 X 10 reps Supine for serratus punches, circumduction CW/CCW, salutes all with 2# 3 X 10 reps Supine for L sh flex AROM 3x10 with 1# weight Supine for L sh abd GE AROM 3x10 no weight L sh flex/ext/IR/ER with level 1 theraband 10 reps Pain Reassessment: 0 Assessment/Response To Treatment: Good Patient stated she is feeling good, no pain at end of session. Educated to continue with HEP. Patient Education: Education provided: Yes Education Provided To: Patient utilizing Explanation mode(s) of education Response to Education: Good PLAN POC Development/Review: No Change in the Plan of Care; Participants: Patient Equipment Recommended: none; Equipment Provided: none Total Treatment Time: 40 TOTAL TREATMENT TIME: 40 Minutes Documentation completed by FLAKO Hua documented in this encounter Plan of Treatment Upcoming Encounters Date Type Department Care Team (Latest Contact Info) Description 01/17/2025 9:15 AM EDT Treatment [facility] 175 [facility] [address] [place] [address] Marcus Abbott OT 02/04/2025 10:15 AM EDT Office Visit Orthopedic Surgery - [place] 175 [facility] [address] [place] [address] Christa Jones MD [address] [phone] 02/26/2025 2:45 PM EDT Consult Orthopedic Surgery [facility] [address] [phone] Christa Jones MD [address] [phone] 03/14/2025 2:30 PM EDT Hospital Encounter [facility] Main OR [address] [place] [phone] Christa Jones MD [address] [phone] 03/14/2025 2:30 PM EDT - 03/14/2025 3:45 PM EDT Surgery [facility] Main OR [address] [place] [phone] Christa Jones MD [address] [phone] ENDOSCOPIC RELEASE LEFT CARPAL TUNNEL [[id number] (CPT??)] 03/25/2025 1:30 PM EDT Office Visit Orthopedic [facility] [address] [address] Debra Singletary PA [address] [phone] Scheduled Procedures Name Priority Associated Diagnoses Date/Ti [...] ease - Met Patient will demo L closet organizer strength >= 15 to be able to [...] shelf of cabinet Patient will demo L closet organizer strength >= 35 to be able to [...] for light IADLs, Patient will demo L closet organizer strength >= 25# to be able to [...] syndrome documented in this encounter Care Teams Contract Assistant Relationship Specialty Start Date End Date Namita Castañeda MD [address] [place] [phone] PCP - General Family Medicine 09/13/24 documented as of this encounter
--- OUTSIDE RECORDS SUMMARY | 2025-01-16 17:42 | XMS_ITS | Encounter Summary ---
Author Organization [employer] Address [address] [place] [address] [address] [place] [address] Care Team Providers Care Bulking Machine Operator Name Role Phone Namita Castañeda MD Primary Care Provider Reason for Referral * Consultation (Routine) - Closed Specialty Diagnoses / Procedures Referred By Contac t Referred To Contact Diagnoses Left median nerve neuropathy Eleonora Lyles MD [address] [place] [address] Phone: tel: fax: Christa Jones [address] [place] [phone] Phone: tel: fax: Referral ID Status Reason Start Date Expiration Date V isits Requested Visits Authorized [id number] Closed Specialty Services Required 08/30/2024 08/30/2025 1 1 Encounter Details Date Type Department Care Team (Late st Contact Info) Description 08/30/2024 Orders Only [facility] MEDICINE [address] [place], [place] [phone] Eleonora Lyles MD [address] [place], [place] [phone] Left median nerve neuropathy (Primary Dx) Social History Tobacco Use Types [...] as of this encounter Plan of Treatment Scheduled Referrals Name Type Priority Associated Diagnoses Orde r Schedule Referral to Hand Surgery Outpatient Referral Routine Left median nerve neuropathy Expected: 08/30/2024 (Approximate), Expires: 08/30/2025 documented as of this encounter Visit Diagnoses Diagnosis Left median nerve neuropathy- Primary documented in this encounter Additional Health Concerns Assessment Noted Time PHQ-9 Depression Total Score: 0 02/10/20 1:20 PM EDT documented as of this encounter Care Teams Bulking Machine Operator Relationship Specialty Start Date End Date Namita Castañeda MD [address] [place] [address] [phone] PCP - General Family Medicine 02/10/24 documented as of this encounter
--- OUTSIDE RECORDS SUMMARY | 2025-01-16 17:42 | XMS_ITS | Encounter Summary ---
Author Organization [facility] Address [address] [place] [address] Care Team Providers Care Social Service Coordinator Name Role Phone Namita Castañeda MD Primary Care Provider [phone] Reason for Visit * Consultation (Routine) - Authorized Specialty Diagnoses / Procedures Referred By Daya campos Referred To Contact Occupational Therapy Diagnoses Rotator cuff tendonitis, left Christa Jones MD 175 [facility] [address] [place] [address] Phone: tel: fax: Referral ID Status Reason Start Date Expiration Date Visits Requested Visits Authorized [id number] Authorized Specialty Services Required 12/04/2024 05/06/2025 60 60 Encounter Details Date Type Department Care Team (Late st Contact Info) Description 12/21/2024 11:00 AM EST Treatment [facility] Occupational Therapy 175 [facility] [address] [place] [address] Jake [...] encounter Progress Notes * FLAKO Hua - 12/21/2024 11:00 AM EST [facility] - Outpatient OCCUPATIONAL THERAPY DAILY TREATMENT NOTE Date: 12/21/2024 Visit Number: 4 Patient Name: Ling Knott : 1970 Age: 54 y.o. Gender: female Diagnosis: ICD-10-CM ICD-9-CM 1. Rotator cuff tendonitis, left M75.82 726.10 Date of Onset: 12/04/2024 Referring Provider: Christa Jones MD Insurance: [facility] / Plan: [facility] / Product Type: *No Product type* / Language: Pt. speaks chilean as preferred language, however declines senior designer/art director Medications: Current Outpatient Medications on File Prior to Visit Medication Sig Dispense Refill celecoxib (CeleBREX) 50 mg capsule Take 1 capsule (50 mg total) by mouth 2 (two) times a day. No current facility-administered medications on file prior to visit. Allergies: has No Known Allergies. Precautions: None specified SUBJECTIVE Subjective Report: Patient stated that she is feeling pretty good. Chart Reviewed: Yes Pain: 2 OBJECTIVE Able to manage all items independently TREATMENT INTERVENTION Procedures: U/S To L ant sh 3.3 MHz, 0.8 W/CM2 , 50% pulsed X 8 min to decrease inflammation Therex: Scap retraction, sh circles AROM 3 X 10 reps Supine for serratus punches, circumduction CW/CCW, salutes 2 X 10 reps Supine for L sh flex AROM - partial range Supine for L sh abd GE AROM - partial range Pain Reassessment: no pain at end of session. Assessment/Response To Treatment: Good Patient tolerated session well, advised to continue with HEP. Patient Education: Education [...] AM EDT Treatment [facility] 175 [facility] 350 [place] [address] Marcus Abbott OT 02/04/2025 10:15 AM EDT Office Visit Orthopedic Surgery - [place] 175 [facility] [address] [place] [address] Christa Jones MD 175 [facility] [address] [place] [phone] 02/26/2025 2:45 PM EDT Consult Orthopedic Surgery [facility] [address] [phone] Christa Jones MD [address] [phone] 03/14/2025 2:30 PM EDT Hospital Encounter [facility] Main OR [address] [place] [phone] Christa Jones MD [address] [phone] 03/14/2025 2:30 PM EDT - 03/14/2025 3:45 PM EDT Surgery [facility] Main OR [address] [place] [phone] Christa Jones MD [address] [phone] ENDOSCOPIC RELEASE LEFT CARPAL TUNNEL [[id number] (CPT??)] 03/25/2025 1:30 PM EDT Office Visit Orthopedic [facility] [address] [phone] Debra Singletary PA [address] [phone] Scheduled Procedures Name Priority Associated Diagnoses Date/Ti [...] ease - Met Patient will demo L foundry metallurgist strength >= 15 to be able to [...] shelf of cabinet Patient will demo L foundry metallurgist strength >= 35 to be able to [...] for light IADLs, Patient will demo L foundry metallurgist strength >= 25# to be able to [...] syndrome documented in this encounter Care Teams Social Service Coordinator Relationship Specialty Start Date End Date Namita Castañeda MD [address] [place] [phone] PCP - General Family Medicine 09/13/24 documented as of this encounter
--- OUTSIDE RECORDS SUMMARY | 2025-01-16 17:42 | XMS_ITS | Clinical Summary ---
Author Organization [facility] Address [address] [place] [address] Phone Care Team Providers Care [employer] Machine Mechanic Name Role Phone Namita Castañeda MD Primary Care Provider [phone] Allergies No known active allergies Medications celecoxib (CeleBREX) 50 mg capsule Take 1 capsule (50 mg total) by mouth 2 (two) times a day. 09/16/2024 Active Active Problems Problem Noted Date Diagnosed Date Carpal tunnel syndrome on left 12/04/2024 Encounters Date Type Department Care Team Description 01/15/2025 1:45 PM EDT Treatment [facility] [address] [phone] Jake Hernandez, LESLIE/L Rotator cuff tendonitis, left (Primary Dx) 01/10/2025 8:45 AM EST Treatment [facility] [address] [phone] Jake Hernandez, LESLIE/L Rotator cuff tendonitis, left (Primary Dx) 2025 1:15 PM EST Treatment [facility] [address] [phone] Marcus Abbott, OT Rotator cuff tendonitis, left (Primary Dx) 01/02/2025 3:30 PM EST Treatment [facility] [address] [phone] Jake Hernandez, LESLIE/L Rotator cuff tendonitis, left (Primary Dx) 12/31/2024 8:30 AM EST Treatment [facility] [address] [phone] Marcus Abbott, OT Rotator cuff tendonitis, left (Primary Dx) 12/26/2024 Telephone Orthopedic [facility] 250 175 [facility] [address] [place] [phone] Lisa Metzger 12/21/2024 11:00 AM EST Treatment [facility] [address] [phone] Jake Hernandez COTA/Kimberlee Rotator cuff tendonitis, left (Primary Dx) 12/19/2024 10:30 AM EST Treatment [facility] [address] [phone] Jojo Severino COTA 12/11/2024 1:15 PM EST Treatment [facility] [address] [phone] Marcus Abbott, OT Rotator cuff tendonitis, left (Primary Dx) 12/05/2024 8:15 AM EST Evaluation [facility] [address] [phone] Marcus Abbott, OT Rotator cuff tendonitis, left 12/05/2024 Plan of Care Documentation [facility] [address] [place] [phone] 12/04/2024 3:00 PM EST Office Visit Orthopedic [facility] 175 [facility] [address] [place] [phone] Christa Jones MD Adhesive capsulitis of left shoulder (Primary Dx); Other lesions of median nerve, left upper limb; Carpal tunnel syndrome on left from Last 3 Months Surgical History Surgery Date Site/Laterality Comments CARPAL TUNNEL RELEASE Right ~8 years ago(2017?) Social History Tobacco Use Types Packs/Day Years Used Date Smoking Tobacco: Never Assessed Comments Unknown Sex and Gender Information Value Date Recorded Sex Assigned at Not on file Legal Sex Female 8:46 AM EST Gender Identity Not on file Sexual Orientation Not on file Obstetrics History Last Filed Vital Signs Vital Sign Reading Time Taken Comments Blood Pressure - - Pulse - - Temperature - - Respiratory Rate - - Oxygen Saturation - - Inhaled Oxygen Concentration - - Weight 83.5 kg (184 lb) 12/04/2024 3:20 PM EST Height 162.6 cm (5' 4 ) 12/04/2024 3:20 PM EST Body Mass Index 31.58 12/04/2024 3:20 PM EST Plan of Treatment Upcoming Encounters Date Type Department Care Team (Latest Contact Info) Description 01/17/2025 9:15 AM EDT Treatment [facility] [address] [phone] Marcus Abbott, OT 02/04/2025 10:15 AM EDT Office Visit Orthopedic [facility] [address] [phone] Christa Jones MD [address] [phone] 02/26/2025 2:45 PM EDT Consult Orthopedic [address] [phone] Christa Jonse MD [address] [phone] 03/14/2025 2:30 PM EDT Hospital Encounter [facility] Main OR [address] [place] [phone] Christa Jones MD [address] [phone] 03/14/2025 2:30 PM EDT - 03/14/2025 3:45 PM EDT Surgery [facility] Main OR [address] [place] [address] Christa Jones MD [address] [phone] ENDOSCOPIC RELEASE LEFT CARPAL TUNNEL [[id number] (CPT??)] 03/25/2025 1:30 PM EDT Office Visit Orthopedic Surgery [address] [place] [address] Debra Singletary PA [address] [facility] [address] [facility] [address] [place] [address] Scheduled Procedures Name Priority Associated Diagnoses Date/Ti me RELEASE CARPAL TUNNEL ENDOSCOPIC Carpal tunnel syndrome on left 03/14/2025 2:30 PM EDT Health Maintenance Due Date Last Done Comments Breast Cancer Screening 1970 DTaP,Tdap,and Td Vaccines (1 - Tdap) 1990 Hepatitis B Vaccines (1 of 3 - 19+ 3-dose series) 1990 Pneumococcal Vaccine: 50+ Ye ars (1 of 1 - PCV) 2021 Zoster Vaccines (1 of 2) 2021 COVID-19 Vaccine (1 - 2023-2 5 season) 2024 Colorectal Cancer Screening: Colonoscopy 09/13/2024 HIV Screening 09/13/2024 Hepatitis C Screening 09/13/2024 Social Influencers of Health Screening 09/13/2024 Depression Screening 02/09/2025 02/10/2024 Cervical Cancer Screening: P ap Smear 03/15/2027 03/15/2024 Cholesterol Screening (Lipid Panel) 02/10/2029 02/11/2024 Influenza Vaccine Completed 09/14/2024 HIB Vaccines Aged [...] on patient's age to complete this topic MMR Vaccines Aged Out No longer eligi ble based on patient's age to complete this topic Meningococcal ACWY Vaccine Aged Out N o longer eligible based on patient's age to complete this topic Meningococcal B Vacine Aged Out No lo nger eligible based on patient's age to complete this topic Pneumococcal Vaccine: Pediat rics (0 to 5 Years) and At-Risk Patients (6 to 64 Years) Aged Out No longer eligi ble based on patient's age to complete this topic RSV Immunization Patients Un jodie 20 months Aged Out No longer eligible b ased on patient's age to complete this topic Varicella Vaccines Aged Out No longer eligible based on patient's age to complete this topic Goals Goal Patient Goal Type Associated Problems Recent Progress Patient-Stated? Author Pt goal General Yes Marcus Abbott, OT Note: To recover 100%; get back to normal physical activity To be in a plan of exercise STG 4-6 visits General On track( 9:26 AM EST) No Marcus Abbott, OT Note: Patient will report <=5/10 pain in L sh - Met Patient will demo L sh AROMimproved by 10* to don shirt with increased ease - Met Patient will demo L strand galvanizer strength >= 15 to be able to [...] shelf of cabinet Patient will demo L strand galvanizer strength >= 35 to be able to hold a pot for cooking Patient will demo improved functional use of L upper extremity as evidenced by Quick Dash score <= 30 to be able to mop the floor Patient will perform upgraded HEP MOD I LTG 20 visits General On track( 9:28 AM EST) No Marcus Abbott, OT Note: Patient will report <=3/10 pain in L sh - Met Patient will demo L sh AROM WFL for light IADLs, Patient will demo L UE strength WFL for light IADLs, Patient will demo L strand galvanizer strength >= 25# to be able to hold a pot for cooking - Met Patient will demo improved functional use of L upper extremity as evidenced by Quick Dash score <= 35 to be able to perform light IADLs - Met Patient will perform HEP MOD I Procedures Procedure Name Priority Date/Time Associated Diagnosis Comments XR SHOULDER 2+ VIEWS LEFT Routine 12/04/2024 3:54 PM EST Pain MA ARTHROCENTESIS/ASPI RATION/INJECTION MAJOR JOINT/BURSA W/O U/S GUIDANCE Routine 12/04/2024 3:00 PM EST Adhesive capsulitis of left shoulder from Last 3 Months Results * XR Shoulder 2+ Views Left (12/04/2024 3:54 PM EST) Anatomical Region Laterality Modality Upper Extremities, Shoulder Left Comp uted Radiography Narrative 12/06/2024 5:00 PM EST AP, true AP, Y view, and axillary view of the left shoulder was obtained on 12/04/2024. ??There are no obvious fractures, lytic lesions, or unusual soft tissue calcifications. ??Patient has mild downslope of the tip of the acromion noted on the Y view. ??Joint space of the AC joint is open as is the glenohumeral joint. us Christa Jones MD IMG XR PROCEDURES Final Resul t * MA ARTHROCENTESIS/ASPIRATION/INJECTION MAJOR JOINT/BURSA W/O U/S GUIDANCE (12/04/2024 3:00 PM EST) Narrative Christa Jones MD - 12/04/2024 3:00 PM EST Christa Jones MD ? 12/06/2024 ??5:07 PM Large joint Inj/Asp: L subacromial bursa Indications: pain Details: 25 G needle, posterior approach Medications: 40 mg triamcinolone acetonide 40 mg/mL The patient's left shoulder was prepped with Betadine alcohol along the posterior lateral corner. ??The skin was injected with 1 cc of 1% lidocaine with epinephrine. ??After that had a chance to take effect I then prepped the area again. ??40 mg of Kenalog mixed with 2 cc of plain lidocaine was then injected into the subacromial space. ??A Band-Aid was then applied. ?? Patient tolerated this well. Informed Consent: ??Site: ??Shoulder ??Laterality: ??Left ??Risk/complications/benefits details: ??Cortisone is an effective medication to treat swelling, inflammation, and pain. ??It is used frequently for such conditions as arthritis, tendinitis, bursitis, and carpal tunnel syndrome. ??However, there are risks to the use of cortisone. For diabetics it can raise ??blood sugars to a dangerous level. ??It can cause skin thinning, fat atrophy, skin discoloration, and wound healing issues. ??It can predispose to infection. ??Chronic use can affect bone metabolism. ??It can over time and with repeated usage become less effective. ??Generally it is advisable NOT to have more than 3 injections/year. ??Patient questions answered: yes ?Patient agrees, verbalizes understanding, and wants to proceed: yes ?Consent given by: ??Patient ??Informed consent discussion completed by Physician/ALINE with patient: ?? Verbal ??Pre-procedure timeout performed: yes ?? Christa Jones MD IN CLINIC/BEDSIDE ORDERABLES Final Result from Last 3 Months Insurance [facility] Care Teams [employer] Machine Mechanic Relationship Specialty Start Date End Date Namita Castañeda MD [address] [place] [address] PCP - General Family Medicine 09/13/24
--- OUTSIDE RECORDS SUMMARY | 2025-01-16 17:42 | XMS_ITS | Encounter Summary ---
Author Organization [facility] Address [address] [place] [address] Care Team Providers Care Senior Search Marketing Analyst Name Role Phone Namita Castañeda MD Primary Care Provider [phone] Reason for Visit * Consultation (Routine) - Authorized Specialty Diagnoses / Procedures Referred By Daya campos Referred To Contact Occupational Therapy Diagnoses Rotator cuff tendonitis, left Christa Jones MD 175 [facility] [address] [place] [address] Phone: tel: fax: Referral ID Status Reason Start Date Expiration Date Visits Requested Visits Authorized [id number] Authorized Specialty Services Required 12/04/2024 05/06/2025 60 60 Encounter Details Date Type Department Care Team (Late st Contact Info) Description 01/10/2025 8:45 AM EST Treatment [facility] 175 [facility] [address] [place] [address] Jake Hernandez COTA/Kimberlee Rotator cuff [...] encounter Progress Notes * FLAKO Hua - 01/10/2025 8:45 AM EST [facility] - Outpatient OCCUPATIONAL THERAPY DAILY TREATMENT NOTE Date: 01/10/2025 Visit Number: [id number] Patient Name: Ling Knott : 1970 Age: 55 y.o. Gender: female Diagnosis: ICD-10-CM ICD-9-CM 1. Rotator cuff tendonitis, left M75.82 726.10 Date of Onset: 12/04/2024 Referring Provider: Christa Jones MD Insurance: Payor: [employer] [facility] / Plan: [employer] GENERIC / Product Type: *No Product type* / Medications: Current Outpatient Medications on File Prior to Visit Medication Sig Dispense Refill celecoxib (CeleBREX) 50 mg capsule Take 1 capsule (50 mg total) by mouth 2 (two) times a day. No current facility-administered medications on file prior to visit. Allergies: has No Known Allergies. Precautions: None specified SUBJECTIVE Subjective Report: I have no pain its really good Chart Reviewed: Yes Pain: 0 TREATMENT INTERVENTION Procedures: U/S To L ant sh 3.3 MHz, 0.8 W/CM2 , 50% pulsed X 8 min to decrease inflammation Therex: Scap retraction, sh circles AROM 3 X 10 reps Supine for serratus punches, circumduction CW/CCW, salutes all with 1# 2 X 10 reps Supine for L sh flex AROM 2x10 with 1# weight Supine for L sh abd GE AROM 2x10 no weight Sidelying for scap mobs L sh flex/ext/IR/ER with level 1 theraband 10 reps Pain Reassessment: 0 Assessment/Response To Treatment: Good Educated patient to continue with HEP and ice if any pain at night. Patient Education: Education provided: Yes Education Provided [...] AM EDT Treatment [facility] 175 [facility] [address] [place] [address] Marcus Abbott, OT 02/04/2025 10:15 AM EDT Office Visit Orthopedic Surgery - [place] 175 [facility] [address] [place] [address] Christa Jones MD [address] [phone] 02/26/2025 2:45 PM EDT Consult Orthopedic Surgery [facility] [address] [phone] Christa Jones MD [address] [phone] 03/14/2025 2:30 PM EDT Hospital Encounter [facility] Main OR [address] [place] [phone] Christa Jones MD [address] [phone] 03/14/2025 2:30 PM EDT - 03/14/2025 3:[address] 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
--- OUTSIDE RECORDS SUMMARY | 2025-01-16 17:42 | XMS_ITS | Encounter Summary ---
Author Organization [employer] Address [address] [place] [address] [address] [place] [address] Care Team Providers Care Receiver Name Role Phone Namita Castañeda MD Primary Care Provider [phone] Reason for Visit * Reason Onset Date Comments Appointment Request 01/07/2025 Encounter Details Date Type Department Care Team ([facility] Contact Info) Description 01/07/2025 Telephone [facility] [address] [place] [address] Namita Castañeda MD [address] [place] [address] Appointment Request Social History Tobacco Use Types Packs/Day Years [...] on file documented as of this encounter Miscellaneous Notes * Telephone Encounter - Christiana Ervin RN - 01/07/2025 10:14 AM EST Called pt via [facility] electrician manager [phone] [address]. Pt. States that she has not had menses since September 2024. Now in December 31, 2024 pt. Started menses and has had it since then. Some days light, some days regular flow and some days with dark red staining. Pt states she usually only gets menses x 3 days. Pt denies but has not done a test. Pt. May be starting menopause due to her age but, will set up appt. With Gisella to assess sx. No cramps or stomach pain. Protocol Used: Vaginal Bleeding - Abnormal (Adult) Protocol-Based Disposition: See in Office or Video Visit within 2 Week-appt 01/08/25 at 1030am with Gisella Positive Triage Question: * Menstrual cycle < 21 days OR > 35 days, and occurs more than two cycles (2 months) this past year * All higher-acuity triage questions were negative * Telephone Encounter - Shari Bonilla - 01/07/2025 9:41 AM EST Pt requesting appt w/ a OBGYN, states has not had a menstrual cycle since September 2024 and just got it 2 weeks ago, pt having bad cramping and other symptoms would like to speak to a nurse documented in this encounter Plan of Treatment Not on file documented as of this encounter Visit Diagnoses Not on filedocumented in this encounter Additional Health Concerns Assessment Noted Time PHQ-9 Depression Total Score: 0 02/10/20 1:20 PM EDT documented as of this encounter Care Teams Receiver Relationship Specialty Start Date End Date Namita Castañeda MD [address] [place] [address] PCP - General Family Medicine 02/10/24 documented as of this encounter
== END 2025-01-16 15:03 | disposition home or self-care (01) ==
LOC: HO.HMGCX 15:02
PROVIDERS: PCP Family Medicine; Visit Provider Advanced Practice Midwife
DX: N93.9 Abnormal uterine and vaginal bleeding, unspecified (principal)
CPT/HCPCS: 76830; 76856

== ENCOUNTER → 2025-01-16 15:14 | Outpatient (BNV) | payer OTHER, SELFPAY | PROVIDERS: PCP Family Medicine; Visit Provider Radiology Diagnostic Radiology | DX: N93.8 Other specified abnormal uterine and vaginal bleeding (principal) | CPT/HCPCS: 76830; 76856 ==

== ENCOUNTER 2025-03-27 14:43 | Outpatient (REF) | payer OTHER, SELFPAY ==
--- OUTSIDE RECORDS SUMMARY | 2025-03-27 14:52 | XMS_ITS | Encounter Summary ---
Author Organization [employer] Address [address] [facility] [address] [place] [address] Care Team Providers Care Car Stower Name Role Phone Namita Castañeda MD Primary Care Provider [phone] Encounter Details Date Type Department Care Team (Late st Contact Info) Description 12/07/2024 Orders Only [facility] [address] [place] [address] Provider, MD Car[place] Social History Tobacco Use [...] documented as of this encounter Care Teams Car Stower Relationship Specialty Start Date End Date Namita Castañeda MD [address] [place] [address] PCP - General Family Medicine 02/10/24 documented as of this encounter
--- OUTSIDE RECORDS SUMMARY | 2025-03-27 14:52 | XMS_ITS | Clinical Summary ---
Author Organization [employer] Address [address] [place] [address] 7[address] [place] [address] Care Team Providers Care Paver Name Role Phone Namita Castañdea MD Primary Care Provider [phone] Allergies No known active allergies Medications ibuprofen [...] recommended reduction of 20-30% of maintenance calories; residential monitor referral offered. Recommended to decrease soda and [...] Encounters Date Type Department Care Team Description 01/17/2025 Telephone [facility] [address] [place] [address] Tonya Ma CNM Results 01/17/2025 Orders Only [facility] [address] [place] [address] Tonya Ma CNM Abnormal uterine bleeding (Primary Dx) 01/14/2025 9:00 AM EDT Office Visit [facility] [address] [facility] [place] [address] Mariel Marshall 2025 10:30 AM EST Office Visit [facility] [address] [place] [address] Tonya Ma CNM Abnormal uterine bleeding (Primary Dx) 2025 Travel 01/07/2025 Telephone [facility] [address] [place] [address] Namita Castañeda MD Appointment Request from Last 3 Months Family History Medical [...] FOBT 1970 HIV Screening 1970 Sigmoidoscopy 1970 Disability Screening 1971 Alcohol/Substance Use Screening 1983 Hepatitis C Screening 1989 DTaP/Tdap/Td Vaccines (1 - Tdap) 1990 Hepatitis B Vaccines (1 of 3 - 19+ 3-dose series) 1990 Pneumococcal Vaccine: 50+ Years (1 of 1 - PCV) 2021 Zoster Vaccines (1 of 2) 2021 COVID-19 Vaccine ( - 2023-2 5 season) 2024 Dental Oral Exam 01/14/2025 [...] age to complete this topic Meningococcal B Vaccine Aged Out No l onger eligible based on patient's age to complete [...] Associated Diagnosis Comments US PELVIS TRANSVAGINAL Urgent 5 5:12 PM EDT Abnormal uterine bleeding ORAL HYGIENE INSTRUCTIONS Routine 01/14/2025 9:00 AM EDT PROPHYLAXIS - ADULT Routine 01/14/2025 9 :00 AM EDT INTRAORAL - COMPLETE SERIES OF RADIOGRAPHIC IMAGES Routine 07/16/2024 10:30 AM EDT Dental calculus Dental plaque Secondary dental caries 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 [facility] ?[address] ? [place] [address] ? Ultrasound Report ? Signed ? Patient: Knott,Ling I ?MR#: [id number] ?? [id number] ? : 1970 ?Acct:[id number] ? Age/Sex: 55 / F ?ADM Date: 01/16/25 ? Loc: HO.HMGCX ? Attending Dr: Tonya Ma CNM ? Ordering Physician: TONYA MA CNM ?? Date of Service: 01/16/25 ?? Procedure(s): US pelvic and transvaginal ?? Accession Number(s): [id number] ? cc: TONYA MA CNM; Namita Castañeda [...] DD/ 1712 ? TD/TT: 01/16/25 1712 ? Chip Separator: ? Procedure Note Donotuseinterpreter, Image - 01/16/2025 [facility] [address] [place] [address] [place] [address] Ultrasound Report Signed Patient: Ling Knott [facility]#: [id number] : 1970Acct:[id number] Age/Sex: 55 / FADM Date: 01/16/25 Loc: HO.HMGCX Attending Dr: Tonya Ma CNM Ordering Physician: TONYA MA CNM Date of Service: 01/16/25 Procedure(s): US pelvic and transvaginal Accession Number(s): [id number] cc: TONYA MA CNM; Namita Castañeda MD [...] by Gabriella Hackett MD in OV> 01/16/25 171 DD/ 171 TD/TT: 01/16/25 171 Chip Separator: us Tonya Ma CNM IMG US PROCEDURES Final R esult * HPV mRNA E6/E7 w/Reflex to HPV Genotypes 16, 18/45 (03/15/2024 4:17 PM EDT) HPV nRNA E6/E7 Not Detected Not Detected [facility] Comment:Methodology: Transcr iption-Mediated AmplificationThis assay detects E6/E7 viral messenger RNA (mRNA) from 14high-risk HPV types (16,18,31,33,35,39,45,51,52,56,58,59,66,68).Cervical sources are required for HPV testing.If a vaginal source from a patient who has had atotal hysterectomy with removal of cervix wassubmitted, please contact the testing laboratoryfor alternative testing options.For additional information, please refer [email or web address].[email or web address]/[email or web address](This link if provided for information/educational purposes only.)THIS TEST WAS PERFORMED AT:[employer] [place] [id number] HERNANDEZ MD HPV mRNA E6/E7 TNP [facility] HPV 16 RNA [facility] HPV 18/45 RNA [facility] 03/15/2024 4:17 PM EDT 03/16/2024 7:00 AM EDT us Namita Castañeda MD LAB CYTOLOGY ORDERABLES Final Result [facility] [address] [place] [phone] * Pap Smear (03/15/2024 4:17 PM EDT) Swab Cervical swab / Unknown 03/15/2024 4:17 PM EDT 03/16/2024 7:00 AM EDT Narrative [facility] - 03/31/2024 5:47 PM EDT ----- ------- Name: Knott,Ling I ?Age/Sex: 54/F ? : 1970 Unit#: [id number] ?? Attend Dr: Namita Castañeda MD ?Re03/19/24 ?Status: DEP REF ? Location: HO.HHCLNP ? Disch: ? ----- ------- SPEC : [id number] ? RECD: 03/16/24 ? STATUS: ??SOUT ? REQ NUM: [id number] ? MILLER: 03/15/24 ? SUBM DR: Namita Castañeda MD ? ENTERED: ??03/16/24 ?SP TYPE: Pap Smr ?OTHR DR: ? ORDERED: ??Pap Smear ? Interpretation ?? Satisfactory for evaluation. ?? No endocervical cells seen. ?? Negative for intraepithelial lesion or malignancy. ? HPV mRNA E6/E7: ?NOT DETECTED ? This assay detects E6/E7 viral messenger RNA (mRNA) from 14 high-risk HPV types (16, 18, ?? 31, 33, 35, 39, 45, 51, 52, 56, 58, 59, 66, 68) ? HPV testing performed by [employer], [place], [place]. ??See reference laboratory ?? portion of the EMR for entire report. ?Clinical Information LMP: Unknown date Previous PAP test: Unknown date, WNL ? Material Received ?? ThinPrep-Vaginal/Cervical ----- ------- Signed (signature on file) Tory Jerrica Lora 03/31/241746 ? ----- ------- ? END OF REPORT ? us Namita Castañeda MD LAB CYTOLOGY ORDERABLES Final Result [facility] [address] [place] [address] [place] [phone] * BI Mammogram Screening Tomosynthesis Bilateral (03/02/2024 10:25 AM EDT) Anatomical Region Laterality Modality Breast Bilateral Mammography 03/02/2024 10:2 5 AM EDT Narrative 04/01/2024 6:07 AM EDT ? [facility] ? [address] ?[place] [address] ? Mammography Report ? Signed ? Patient: Knott,Ling I ?MR#: [id number] ?? [id number] ? : 1970 ?Acct:[id number] ? Age/Sex: 54 / F ?ADM Date: 03/02/24 ? Loc: HO.MAMMO ? Attending Dr: Namita Castañeda MD ? Ordering Physician: Namita Castañeda MD ?Results: 1Nega ?? tive ? Date of Service: 03/02/24 ?Follow Up: 1 Year From Orig ?? inal Mammogram ? Procedure(s): MM tomosynthesis screening BI ?? Accession Number(s): [id number] ? cc: Namita Castañeda MD ? EXAMINATION: [...] 0604 ? DD/ 1025 ? TD/TT: ? Chip Separator: ? Procedure Note Randy, Image - 04/01/2024 [facility] [address] [place], [place] [address] Mammography Report Signed Patient: Ling Knott IMR#: [id number] : 1970Acct:[id number] Age/Sex: 54 / FADM Date: 03/02/24 Loc: HO.MAMMO Attending Dr: Namita Castañeda MD Ordering Physician: Namita Castañeda MDResults: 1Nega tive Date of Service: 03/02/24Follow Up: 1 Year From Orig inal Mammogram Procedure(s): MM tomosynthesis screening BI Accession Number(s): [id number] cc: Namita Castañeda MD EXAMINATION: MM SCREENING [...] in OV> 04/01/24 0604 DD/ 1025 TD/TT: Chip Separator: us Namita Castañeda MD IMG BI PROCEDURES Final Resul t * (ABNORMAL) Lipid Panel, Standard (02/11/2024 8:16 AM EDT) Triglycerides 131 <150 mg/dL [facility] Comment:Desirable Triglyceri de: less than 150 mg/dLBorderline High Triglyceride 150-199 mg/dLHigh Triglyceride: 200-499 mg/dLVery High Triglyceride: greater than or equal to 5OO mg/dL Cholesterol 199 <200 mg/dL [facility] Comment:Desirable Cholestero l: less than 200 mg/dLBorderline High Cholesterol: 200-239 mg/dLHigh Cholesterol: greater than 239 mg/dL LDL Cholesterol Calculated 109(H) <100 mg/dL [facility] Comment:Desirable LDL: less than 100 mg/dLNear Optimal/Above Optimal LDL: 110- 129 mg/dLBorderline High LDL: 130-159 mg/dLHigh LDL: 160-189 mg/dLVery High LDL: greater than or equal to 190 mg/dL HDL Cholesterol 64 >40 mg/dL [facility] Comment:Desirable HDL: great er than 40 mg/dL Note: This HDL assay may give artificially low results in patients with liver disease. Blood Venous blood specimen / Unknown 02/11/2024 8:16 AM EDT 02/11/2024 8:16 AM EDT us Namita Castañeda MD LAB BLOOD ORDERABLES Final Re sult [facility] [address] [place] [phone] from Last 3 Months or Most Recently Relevant to Health Maintenance Insurance [facility] Care Teams Paver Relationship Specialty Start Date End Date Namita Castañeda MD [address] [place] [address] PCP - General Family Medicine 02/10/24
--- OUTSIDE RECORDS SUMMARY | 2025-03-27 14:52 | XMS_ITS | Encounter Summary ---
Author Organization [employer] Address [address] [place] [address] 7t [place] [address] Care Team Providers Care Safety Specialist Name Role Phone Namita Castañeda MD Primary Care Provider [phone] Reason for Referral * Consultation (Routine) - Closed Specialty Diagnoses / Procedures Referred By Daya campos Referred To Contact Diagnoses Left median nerve neuropathy Eleonora Lyles MD [address] [place] [address] Phone: tel: fax: Christa Jones [address] [place] [address] Phone: tel: fax: Referral ID Status Reason Start Date Expiration Date V isits Requested Visits Authorized [id number] Closed Specialty Services Required 08/30/2024 08/30/2025 1 1 Encounter Details Date Type Department Care Team (Late st Contact Info) Description 08/30/2024 Orders Only [facility] [address] [place], [place] [phone] Eleonora Lyles MD [address] [place], [place] [phone] Left median nerve neuropathy (Primary Dx) Social [...] documented as of this encounter Care Teams Safety Specialist Relationship Specialty Start Date End Date Namita Castañeda MD [address] [place] [address] PCP - General Family Medicine 02/10/24 documented as of this encounter
--- OUTSIDE RECORDS SUMMARY | 2025-03-27 14:52 | XMS_ITS | Clinical Summary ---
Author Organization [facility] Address [address] [place] [phone] Phone Care Team Providers Care Monogram Operator Name Role Phone Namita Castañeda MD Primary Care Provider [phone] Allergies No known active allergies Medications acetaminophen (TYLENOL 8 HOUR) 650 mg 8 hr tablet Take 1 tablet (650 mg total) by mouth every 8 (eight) hours if needed for mild pain for up to 15 days. Do not crush, chew, or split. 45 tablet 03/14/2025 5 Active ibuprofen (ADVIL,MOTRIN) 800 mg tablet Take 1 tablet (800 mg total) by mouth every 12 (twelve) hours for 15 days. 30 each 03/14/2025 5 Active oxyCODONE (ROXICODONE) 5 mg immediate release tablet Take 1 tablet (5 mg total) by mouth every 8 (eight) hours for 3 days. Max Daily Amount: 15 mg 8 tablet 03/14/2025 5 Active Problems Problem Noted Date Diagnosed Date History of carpal tunnel surgery of right wrist 02/26/2025 Carpal tunnel syndrome on left 12/04/2024 Paresthesia of left upper extremity 07/20/2024 Encounters Date Type Department Care Team Description 03/25/2025 1:30 PM EDT Office Visit Orthopedic Surgery - [address] [place] [address] Debra Singletary PA S/P carpal tunnel release (Primary Dx) 03/14/2025 4:23 PM EDT Anesthesia Event [facility] OR [address] [place] [phone] Kyree Garcia MD Vermes, Rachie, CRNA 03/14/2025 1:45 PM EDT - 03/14/2025 3:00 PM EDT Surgery [facility] OR [address] [place] [phone] Christa Jones MD ENDOSCOPIC RELEASE LEFT CARPAL TUNNEL [90702 (CPT??)] 03/14/2025 12:11 PM EDT - 03/14/2025 6:01 PM EDT Hospital Encounter [facility] OR [address] [place] [phone] Christa Jones MD Discharge Disposition: Home or Self Care 02/26/2025 2:45 PM EDT Consult Orthopedic Surgery [facility] [address] [phone] Christa Jones MD Carpal tunnel syndrome on left (Primary Dx) 02/04/2025 10:15 AM EDT Office Visit Orthopedic Surgery [facility] [address] [phone] Christa Jones MD Carpal tunnel syndrome on left (Primary Dx) 01/17/2025 9:15 AM EDT Treatment [facility] [address] [phone] Marcus Abbott OT Rotator cuff tendonitis, left (Primary Dx) 01/15/2025 1:45 PM EDT Treatment [facility] [address] [place] [phone] Jake Hernandez COTA/Kimberlee Rotator cuff tendonitis, left (Primary Dx) 01/10/2025 8:45 AM EST Treatment [facility] [address] [place] [phone] Jake Hernandez COTA/L Rotator cuff tendonitis, left (Primary Dx) 2025 1:15 PM EST Treatment [facility] [address] [phone] Marcus Abbott, OT Rotator cuff tendonitis, left (Primary Dx) 01/02/2025 3:30 PM EST Treatment [facility] [address] [phone] Mary Klarissacjmat, LESLIE/L Rotator cuff tendonitis, left (Primary Dx) 12/31/2024 8:30 AM EST Treatment [facility] [address] [phone] Marcus Abbott, OT Rotator cuff tendonitis, left (Primary Dx) from Last 3 Months Surgical History Surgery Date Site/Laterality Comments CARPAL TUNNEL RELEASE Right ~8 years ago(2017?) CHOLECYSTECTOMY CARPAL TUNNEL RELEASE 03/14/2025 Left Left endoscopic carpal tunnel release Social History Tobacco Use Types Packs/Day Years Used Date Smoking Tobacco: Never Smokeless Tobacco: Never Tobacco Cessation:Counseling Given: Not Answered Comments No Sex and Gender Information Value Date Recorded Sex Assigned at Not on file Legal Sex Female 8:46 AM EST Gender Identity Not on file Sexual Orientation Not on file Obstetrics History Last Filed Vital Signs Vital Sign Reading Time Taken Comments Blood Pressure 117/50 03/14/2025 5:21 PM EDT Pulse 64 03/14/2025 5:21 PM EDT Temperature 36.1 ??C (97 ??F) 03/14/2025 5:13 PM EDT Respiratory Rate 16 03/14/2025 5:13 PM EDT Oxygen Saturation 100% 03/14/2025 5:21 PM EDT Inhaled Oxygen Concentration - - Weight 83.9 kg (185 lb) 03/25/2025 1:44 PM EDT Height 162.6 cm (5' 4 ) 03/25/2025 1:44 PM EDT Body Mass Index 31.76 03/25/2025 1:44 PM EDT Plan of Treatment Health Maintenance Due Date [...] To be in a plan of exercise Procedures Procedure Name Priority Date/Time Associated Diagnosis Comments PA ENDOSCOPY WRIST SURGICAL WITH RELEASE TRANSVERSE CARPAL LIGAMENT 03/14/2025 4:28 PM EDT Carpal tunnel syndrome on left from Last 3 Months Insurance [facility] Advance Directives * Full Code - Default (Latest Code Status on File) Date Activated Date Inactivated Comments 03/14/2025 12:23 PM 03/14/2025 8:01 PM This is order is used when code status has not been discussed with the patient, or code status is otherwise unknown/unconfirmed To update the patient's code status, place a code status order. Do not modify or discontinue any currently active code status orders. Care Teams Monogram Operator Relationship Specialty Start Date End Date Namita Castañeda MD [address] [place] [address] PCP - General Family Medicine 09/13/24
--- OUTSIDE RECORDS SUMMARY | 2025-03-27 14:52 | XMS_ITS | Encounter Summary ---
Author Organization [facility] Address [address] [place] [address] Care Team Providers Care Customer Loyalty Representative Name Role Phone Namita Castañeda MD Primary Care Provider [phone] Reason for Visit * Reason Comments Post-op 1st PO for eCTR on * Orthopedic (Urgent) - Pending Review Specialty Diagnoses / Procedures Referred By Daya campos Referred To Contact Orthopedic Surgery / Orthopaedic Surgery Diagnoses Adhesive capsulitis of left shoulder Procedures Large joint Inj/Asp: L subacromial bursa Christa Jones MD [address] [phone] Phone: tel: fax: Referral ID Status Reason Start Date Expiration Date V isits Requested Visits Authorized [id number] Pending Review 12/06/2024 12/06/2025 12 12 Encounter Details Date Type Department Care Team (Late st Contact Info) Description 03/25/2025 1:30 PM EDT Office Visit Orthopedic Surgery - [place] [address] [phone] Debra Singletary PA [address] [phone] S/P carpal tunnel release (Primary Dx) Social History Tobacco Use Types Packs/Day Years Used Date Smoking Tobacco: Never Smokeless Tobacco: Never Comments No Sex and Gender Information Value [...] - Inhaled Oxygen Concentration - - Weight 83.9 kg (185 lb) 03/25/2025 1:44 PM EDT Height 162.6 cm (5' 4 ) 03/25/2025 1:44 PM EDT Body Mass Index 31.76 03/25/2025 1:44 PM EDT documented in this encounter Progress Notes * ANNELISE Klein - 03/25/2025 1:30 PM EDT Patient: Ling Knott : 1970 VISIT DATE: 03/25/2025 HPI: Nikos is a 55 y.o. year old female who presents for post-operative follow-up. Patient underwent left endoscopic carpal tunnel release with Dr. Jones on 03/14/2025. Pains has been controlled. Numbness and tingling improved. Patient is [place] Island[place]-speaking I do have an tobacco classer via the video system. Physical Exam: Sutures removed. Surgical incision clean dry and intact. No wound dehiscence or signs of infection the patient makes full fist. Assessment and Plan: 1. S/P carpal tunnel release Patient is status post the above doing well. Discussed slowly resuming regular activities to tolerance. She does not need any work notes. She is already had the contralateral side done. Follow-up asneeded. She will call if there is any problems. There are no diagnoses linked to this encounter. ANNELISE Klein Cosigned by Christa Jones MD at 03/26/2025 12:16 PM EDT documented in this encounter Plan of Treatment Not on file documented as of this encounter Goals Goal Patient Goal Type Associated Problems Recent Progress Patient-Stated? Author Pt goal General Yes Marcus Abbott, OT Note: To recover 100%; get back to normal physical activity To be in a plan of exercise documented as of this encounter Visit Diagnoses Diagnosis S/P carpal tunnel release- Primary Other postprocedural status documented in this encounter Care Teams Customer Loyalty Representative Relationship Specialty Start Date End Date Namita Castañeda MD [address] [place] [address] PCP - General Family Medicine 09/13/24 documented as of this encounter
== END 2025-03-27 14:44 | disposition home or self-care (01) ==
LOC: HO.MAMMO 14:43
PROVIDERS: PCP Family Medicine; Visit Provider Family Medicine
DX: Z12.31 Encounter for screening mammogram for malignant neoplasm of breast (principal)
CPT/HCPCS: 77063; 77067

== ENCOUNTER → 2025-03-27 15:00 | Outpatient (BNV) | payer OTHER, SELFPAY | PROVIDERS: PCP Family Medicine; Visit Provider Internal Medicine | DX: Z12.31 Encounter for screening mammogram for malignant neoplasm of breast (principal) | CPT/HCPCS: 77063; 77067 ==

== ENCOUNTER 2025-04-10 08:16 | Outpatient (AMB) | payer OTHER, SELFPAY ==
--- OUTSIDE RECORDS SUMMARY | 2025-04-10 08:22 | XMS_ITS | Clinical Summary ---
Author Organization [employer] Address [address] [place] [address] 7[address] [place] [address] Care Team Providers Care Risk Lead Name Role Phone Namita Castañeda MD Primary Care Provider [phone] Allergies No known active allergies Medications ibuprofen [...] recommended reduction of 20-30% of maintenance calories; pneumatic tool repairer referral offered. Recommended to decrease soda [...] Encounters Date Type Department Care Team Description 03/27/2025 Orders Only [facility] [address] [place] [address] Namita Castañeda MD 01/17/2025 Telephone [facility] [address] [place] [phone] Tonya Ma CNM Results 01/17/2025 Orders Only [facility] [address] [place] [address] Tonya Ma CNM Abnormal uterine bleeding (Primary Dx) 01/14/2025 9:00 AM EDT Office Visit [facility] [address] [place] [address] Mariel Marshall 2025 10:30 AM EST Office Visit [facility] [address] [place] [address] Tonya Ma CNM Abnormal uterine bleeding (Primary Dx) 2025 Travel from Last 3 Months Family History Medical [...] 01/14/2025, 07/16/2024 Tobacco Screening 01/14/2026 01/14/2025 Mammogram 03/27/2027 03/27/2025, 03/02/2024 Dental X-Ray: Full Mouth 07/17/2027 07/16/2024 [...] Procedure Name Priority Date/Time Associated Diagnosis Comments BI MAMMOGRAM SCREENING TOMOSYNTHESIS BILATERAL Routine 03/27/2025 2:45 PM EDT US PELVIS TRANSVAGINAL Urgent 5:12 PM EDT Abnormal uterine bleeding ORAL HYGIENE INSTRUCTIONS Routine 01/14/2025 9:00 AM EDT PROPHYLAXIS - ADULT Routine 01/14/2025 9 :00 AM EDT INTRAORAL - COMPLETE SERIES OF RADIOGRAPHIC IMAGES Routine 07/16/2024 10:30 AM EDT Dental calculus Dental plaque Secondary dental caries associated with failed or defective dental congregational Dental caries COMPREHENSIVE ORAL EVALUATION - NEW OR ESTABLISHED PATIENT Routine 07/16/2024 10:30 AM EDT Dental calculus Dental plaque Secondary dental caries associated with failed or defective dental congregational Dental caries HPV MRNA E6/E7 REFLEX TO HPV 16, 18/45 Routine 03/15/2024 4:17 PM EDT PAP SMEAR Routine 03/15/2024 4:17 PM EDT Cervical cancer screening LIPID PANEL, STANDARD Routine 02/11/2024 8:16 AM EDT Class 1 obesity without serious comorbidity with body mass index (BMI) of 32.0 to 32.9 in adult, unspecified obesity type from Last 3 Months or Most Recently Relevant to Health Maintenance Results * BI Mammogram Screening Tomosynthesis Bilateral (03/27/2025 2:45 PM EDT) Anatomical Region Laterality Modality Breast Bilateral Mammography 03/27/2025 2:45 PM EDT Narrative 04/05/2025 4:26 PM EDT ? [facility] ? [address] ?[place] [address] ?[phone] ? Mammography Report ? Signed ? Patient: Nikos,Ling I ?MR#: [id number] ?? [id number] ? : 1970 ?Acct:[id number] ? Age/Sex: 55 / F ?ADM Date: 03/27/ ? Loc: HO.MAMMO ? Attending Dr: Namita Castañeda MD ? Ordering Physician: Namita Castañeda MD ?Results: 1Nega ?? tive ? Date of Service: 03/27/ ?Follow Up: 1 Year From Orig ?? inal Mammogram ? Procedure(s): MM tomosynthesis screening BI ?? Accession Number(s): [id number] ? cc: Namita Castañeda MD ? EXAMINATION: ?? MM SCREENING DIGITAL BREAST TOMOSYNTHESIS, BILATERAL ? CLINICAL INFORMATION: ? Screening. Asymptomatic. ? COMPARISON: ?? Mammography: Comparison is made with available priors ? TECHNIQUE: ?? Digital breast mammography with tomosynthesis is performed in both the ?? craniocaudal and mediolateral oblique views along with computer-aided ?? detection (CAD). ? FINDINGS: ?? There are scattered areas [...] due date for their next mammogram. ? Electronically signed by: ??Yeimi Cardenas DO ??04/05/2025 04:23 PM EDT ? Dictated By: ?Yeimi Cardenas DO ? Signed By: ?<Electronically signed by Yeimi Cardenas, DO in OV> ? 04/05/25 1623 ? DD/ 1445 ? TD/TT: 03/27/25 1500 ? Special Agent In Charge: ? Procedure Note Oscarluis, Image - 04/05/2025 [facility] [address] [place] [address] Mammography Report Signed Patient: Ling Knott IMR#: [id number] : 1970Acct:[id number] Age/Sex: 55 / FADM Date: 03/27/25 Loc: [facility] Attending Dr: Namita Castañeda MD Ordering Physician: Namita Castañedaesults: 1Nega tive Date of Service: 03/27/25Follow Up: 1 Year From Orig inal Mammogram Procedure(s): MM tomosynthesis screening BI Accession Number(s): [id number] cc: Namita Castañeda MD EXAMINATION: MM SCREENING DIGITAL BREAST TOMOSYNTHESIS, BILATERAL CLINICAL INFORMATION: Screening. Asymptomatic. COMPARISON: Mammography: Comparison is made with available priors TECHNIQUE: Digital breast mammography with tomosynthesis is performed in both the craniocaudal and mediolateral oblique views along with computer-aided detection (CAD). FINDINGS: There are scattered areas of fibroglandular [...] target due date for their next mammogram. Electronically signed by: Yeimi Cardenas DO 04/05/2025 04:23 PM EDT RP Dictated By: Yeimi Cardenas DO Signed By: <Electronically signed by Yeimi Cardenas DO in OV> 04/05/25 1623 DD/ 1445 TD/TT: 03/27/25 1500 Special Agent In Charge: us Namita Castañeda MD IMG BI PROCEDURES Edited Resu lt - Final * US Pelvis Transvaginal (01/16/2025 5:12 PM EDT) Anatomical Region Laterality Modality Pelvis Ultrasound 01/16/2025 5:12 PM EDT Narrative 01/16/2025 5:13 PM EDT ? [facility] ?[address] [facility] ? [place] [address] ? Ultrasound Report ? Signed ? Patient: Knott,Ling I ?MR#: [id number] ?? [id number] ? : 1970 ?Acct:[id number] ? Age/Sex: 55 / F ?ADM Date: 03/12/25 ? Loc: HO.HMGCX ? Attending Dr: Tonya Ma CNM ? Ordering Physician: TONYA MA CNM ?? Date of Service: 01/16/25 ?? Procedure(s): US pelvic and transvaginal ?? Accession Number(s): [id number] ? cc: TONYA AM CNM; Namita Castañeda MD ? CLINICAL HISTORY: [...] in OV> ? 01/16/25 1713 ? DD/ ? TD/TT: 01/16/251711 ? Special Agent In Charge: ? Procedure Note Randy, Delroy - 01/16/[address] [facility] [address] [place] [address] [place] [address] Ultrasound Report Signed Patient: Ling Knott IMR#: [id number] : 1970Acct:[id number] Age/Sex: 55 / FADM Date: 01/16/25 Loc: HO.HMGCX Attending Dr: Tonya Ma CNM Ordering Physician: TONYA MA CNM Date of Service: 01/16/25 Procedure(s): US pelvic and transvaginal Accession Number(s): [id number] cc: TONYA MA CNM; Namita Castañeda MD [...] Gabriella Hackett MD in OV> 01/16/251712 DD/ 11 TD/TT: 01/16/251711 Special Agent In Charge: us Tonya Ma [facility] IMG US PROCEDURES Final R esult * HPV mRNA E6/E7 w/Reflex to HPV Genotypes 16, 18/45 (03/15/2024 4:17 PM EDT) HPV nRNA E6/E7 Not Detected Not Detected [facility] Comment:Methodology: Transcr iption-Mediated AmplificationThis assay detects E6/E7 viral messenger RNA (mRNA) from 14high-risk HPV types (16,18,31,33,35,39,45,51,52,56,58,59,66,68).Cervical sources are required for HPV testing.If a vaginal source from a patient who has had atotal hysterectomy with removal of cervix wassubmitted, please contact the testing laboratoryfor alternative testing options.For additional information, please refer tohttp://education.[employer]/faq/LQF580c7(This link if provided for information/educational purposes only.)THIS TEST WAS PERFORMED AT:[facility] [place] [phone] HERNANDEZ MD HPV mRNA E6/E7 [facility] HPV 16 RNA [facility] HPV 18/45 RNA [facility] 03/15/2024 4:17 PM EDT 03/16/2024 7:00 AM EDT us Namita Castañeda MD LAB CYTOLOGY ORDERABLES Final Result [facility] [address] [place] [phone] * Pap Smear (03/15/2024 4:17 PM EDT) Swab Cervical swab / Unknown 03/15/2024 4:17 PM EDT 03/16/2024 7:00 AM EDT Narrative [facility] - 03/31/2024 5:47 PM EDT ----- ------- Name: Ling Knott I ?Age/Sex: 54/F ? : 1970 Unit#: [id number] ?? Attend Dr: Namita Castañeda MD ?Re03/19/24 ?Status: DEP REF ? Location: HO.HHCLNP ? Disch: ? ----- ------- SPEC : [id number] ? RECD: 03/16/24 ? STATUS: ??SOUT ? REQ NUM: [id number] ? MILLER: 03/15/24 ? SUBM DR: Namita [...] 66, 68) ? HPV testing performed by [facility], [place], [place]. ??See reference laboratory ?? portion of the EMR for entire report. ?Clinical Information LMP: Unknown date Previous PAP test: Unknown date, WNL ? Material Received ?? ThinPrep-Vaginal/Cervical ----- ------- Signed (signature on file) Tory Lora 03/31/24 1747 ? ----- ------- ? END OF REPORT ? us Namita Castañeda MD LAB CYTOLOGY ORDERABLES Final Result [facility] [address] [place] [phone] * (ABNORMAL) Lipid Panel, Standard (02/11/2024 8:16 AM EDT) Triglycerides 131 <150 mg/dL [facility] Comment:Desirable Triglyceri de: less than 150 mg/dLBorderline High Triglyceride 150-199 mg/dLHigh Triglyceride: 200-499 mg/dLVery High Triglyceride: greater than or equal to 5OO mg/dL Cholesterol 199 <200 mg/dL [facility] Comment:Desirable Cholestero l: less than 200 mg/dLBorderline High Cholesterol: 200-239 mg/dLHigh Cholesterol: greater than 239 mg/dL LDL Cholesterol Calculated 109(H) <100 mg/dL [facility] Comment:Desirable LDL: less than 100 mg/dLNear Optimal/Above Optimal LDL: 110- 129 mg/dLBorderline High LDL: 130-159 mg/dLHigh LDL: 160-189 mg/dLVery High LDL: greater than or equal to 190 mg/dL HDL Cholesterol 64 >40 mg/dL [facility] Comment:Desirable HDL: great er than 40 mg/dL Note: This HDL assay may give artificially low results in patients with liver disease. Blood Venous blood specimen / Unknown 02/11/2024 8:16 AM EDT 02/11/2024 8:16 AM EDT us Namita Castañeda MD LAB BLOOD ORDERABLES Final Re sult [facility] [address] [place] [phone] [phone] from Last 3 Months or Most Recently Relevant to Health Maintenance Insurance [facility] Care Teams Risk Lead Relationship Specialty Start Date End Date Namita Castañeda MD [address] [place] [address] PCP - General Family Medicine 02/10/24
--- NOTE | 2025-04-10 08:28 | MHC.OFFVIS ---
Vital Signs 04/10/25 08:29 Height 5 ft 4 in Weight 187 lb BMI 32.1 BP 110/70 Intake Visit Reasons: AUB [employer] Salesperson Required: Yes [employer] Salesperson Language: Cementer Helper Services: [employer] Salesperson Present (in person) [employer] Salesperson Name: Ros JENNINGS Information Interpreted: non-clinical & clinical Indian Trader: Indian Trader Present (Ros Nikos MEHULJerrica) Accompanied by: Self / Same As Patient Allergies No Known Allergies Allergy (Verified 04/10/25 08:31) Post menopausal: Yes HPI Comments Details: Presenting complaining of irregular menstrual cycles for the last year. Last co testing done in 03/30 was negative Last screening mammogram in 03/31 was BI-RADS 1 Last pelvic ultrasound in 01/29 showed the following: Anteverted uterus is 9.5 cm length. Normal myometrium. Calcification within the lower uterine segment spanning 9 mm x 7 mm x 13 mm. No endometrial lesion, 6 mm thickness. Right ovary 2.2 x 0.9 x 1.3 cm. Left ovary 2.4 x 1.5 x 2.0 cm. Normal color Doppler with arterial/venous spectral tracing of both ovaries. No free fluid PFSH Surgical History (Updated 04/10/25 @ 08:33 by Ros Knott CMA) Hx of appendectomy Hx of cholecystectomy Hx of carpal tunnel repair Family History (Updated 04/10/25 @ 08:34 by Ros Knott CMA) Father Diabetes HTN (hypertension) Mother Diabetes HTN (hypertension) Social History (Updated 04/10/25 @ 08:34 by Ros Knott CMA) Household Members: Spouse Housing: House Alcohol intake: never Patient Tobacco Use Status: Never used Tobacco Current occupational status: unemployed Sexually active: Yes Sexual orientation: Straight/Heterosexual Gender identity: Female Female Reproductive History Menstrual control method: other (vasectomy) Menopause type: natural Total pregnancies: 2 Full term: 2 Number of Living Children: 2 Date of last pap smear: 03/16/24 Date of Mammogram: 03/27/25 Review of Systems Const All systems reviewed & are unremarkable except as noted in HPI and below Physical Exam Vital Signs: Last Vital Signs BP 110/70 04/10/25 08:29 BMI result Body Mass Index 32.1 General: Yes no CVA tenderness External Female Exam: normal external appearance and normal appearance of the urethra Speculum Exam - Vagina: normal appearance of the vagina, normal palpation, no lesions and no masses Speculum Exam - Cervix: normal appearance of the cervix, normal palpation, no lesions, no masses and nontender Bimanual exam- vagina & uterus: normal bimanual exam, normal palpation, uterine size normal, normal palpation, uterine shape normal, No Cervical tenderness present and non-tender Bimanual Exam- Adnexa, other: normal adnexae Back/Spine/Pelvis Back: no CVA tenderness Office Procedures Endometrial Biopsy Details: The patient was counseled regarding the indication and benefits of endometrial sampling to rule out endometrial pathology including not limited to endometrial hyperplasia or endometrial cancer and others; The alternatives (Either do nothing vs. hysteroscopy D&C) & the risks were discussed with the patient including but not limited: pain, uterine perforation, bleeding, infection, possible injury to bladder, bowel, ureter, possible need for blood transfusion with all its possible risks. The patient verbalized understanding all questions answered and signed consent. Urine test done in the office was negative The patient was placed into the dorsal lithotomy position; a speculum was inserted in the vagina. Using aseptic technique for the procedure, the cervix was cleansed with Betadine. The anterior lip of the cervix was grasped with a single tooth tenaculum. The uterus was sounded to 7 cm with a 4 mm Pipelle was used. Tissues samples were obtained and placed in formalin, in a patient labeled container and sent to the pathology department. At the end of the procedure, there was minimal bleeding noted The patient tolerated the procedure well and was discharged in good condition with the following instructions: Nothing in the vagina until the bleeding stops. No sex until the bleeding stops, to call if any of the following occurs: fever (>100.4), flu-like symptoms, abdominal pain, heavy bleeding, four smelling vaginal discharge. The patient was instructed to schedule a Follow up appointment in 2 weeks to discuss pathology results of the biopsy and treatment options. This note was generated with a voice recognition program. Some errors may have been overlooked during the review of this note. Sometimes these errors may affect the content or meaning of a given sentence. [id number] Biopsy Assessment & Plan Assessment & Plan (1) Abnormal uterine bleeding (AUB): Code(s): N93.9 - Abnormal uterine and vaginal bleeding, unspecified Category: Medical Plan: GC and chlamydia taken CBC, TSH, HCG, FSH/LH ordered. Discussed with the patient the different causes of abnormal bleeding including thyroid disorders, uterine and ovarian pathology, endometrial hyperplasia, carcinoma and other potential causes. Discussed with the patient the work up including CBC (to r/o anemia), TSH, FSH/LH, endometrial biopsy to r/o endometrial pathology. EMB done, see procedure note. All questions answered and the patient verbalized understanding. Instructed the patient to schedule an appointment for a follow-up in 2 weeks. Orders: Orders Lutenizing Hormone Today N93.9 - Abnormal uterine and vaginal bleeding, unspecified Follicle Stimulating Hormone Today N93.9 - Abnormal uterine and vaginal bleeding, unspecified Complete Blood Count no Diff Today N93.9 - Abnormal uterine and vaginal bleeding, unspecified TSH reflex Free T4 Today N93.9 - Abnormal uterine and vaginal bleeding, unspecified HCG Quantitative Today N93.9 - Abnormal uterine and vaginal bleeding, unspecified AMB Endometrial Biopsy Today N93.9 - Abnormal uterine and vaginal bleeding, unspecified Coding Level of Care Code New Pt Level 3 (15755) Procedure Only Diagnoses Abnormal uterine bleeding (AUB) N93.9 CPT Codes Endometrial Biopsy - CPT: 11523-Hzzzjtozjyd Biopsy ([id number])
[2025-04-10 08:29] VITALS: BP 110/70; BMI 32.1
== END 2025-04-10 09:13 | disposition home or self-care (01) ==
PROVIDERS: PCP Family Medicine; Visit Provider Obstetrics & Gynecology
DX: N93.9 Abnormal uterine and vaginal bleeding, unspecified (principal)
CPT/HCPCS: 58100; 99203

== ENCOUNTER 2025-04-10 08:16 | Outpatient (REF) | payer OTHER, SELFPAY ==
[2025-04-10 09:58] LABS: Hematocrit 36.5 % (37.0-47.0); Hemoglobin 12.1 g/dl (12.0-16.0); Mean Corpuscular HGB Conc 33.2 g/dl (31.0-35.0); Mean Corpuscular Hemoglobin 30.2 pg (27.0-33.0); Mean Platelet Volume 10.4 fL (9.4-12.3); Platelet Count 354 X10*3/uL (160-400); Red Blood Count 4.01 X10*6/uL (4.20-5.50); Red Cell Distribution Width 12.4 % (11.0-16.0); White Blood Count 8.6 X10*3/uL (4.8-10.8)
[2025-04-10 11:20] LABS: HCG Quantitative < 2 mIU/mL; TSH reflex Free T4 0.88 uIU/mL (0.32-4.0)
[2025-04-10 16:58] LABS: CT PCR NOT DETECTED (Not Detect.); NG PCR NOT DETECTED (Not Detect.)
[2025-04-11 02:18] LABS: Follicle Stimulating Hormone 60.2 mIU/mL; Lutenizing Hormone 38.4 mIU/mL
== END 2025-04-10 08:17 | disposition home or self-care (01) ==
LOC: HO.LAB 08:16
PROVIDERS: PCP Family Medicine; Visit Provider Obstetrics & Gynecology
DX: N93.9 Abnormal uterine and vaginal bleeding, unspecified (principal)
CPT/HCPCS: 58100; 83001; 83002; 84443; 84702; 85027; 87491; 87591; 88305

== ENCOUNTER 2025-05-08 08:34 | Outpatient (AMB) | payer OTHER, SELFPAY ==
--- OUTSIDE RECORDS SUMMARY | 2025-05-08 08:37 | XMS_ITS | Clinical Summary ---
Author Organization [facility] Address [address] [place] [phone] Phone Care Team Providers Care Signs Sales Representative Name Role Phone Namita Castañeda MD Primary Care Provider [phone] Allergies No known active allergies Medications No known medications Active Problems Problem Noted Date Diagnosed Date History of carpal tunnel surgery of right wrist 02/26/2025 Carpal tunnel syndrome on left 12/04/2024 Paresthesia of left upper extremity 07/20/2024 Encounters Date Type Department Care Team Description 03/25/2025 1:30 PM EDT Office Visit Orthopedic Surgery [address] [place] [phone] Debra Singletary PA S/P carpal tunnel release (Primary Dx) 03/14/2025 4:23 PM EDT Anesthesia Event [facility] OR [address] [place] [phone] Kyree Garcia MD Vermes, Rachie, CRNA 03/14/2025 1:45 PM EDT - 03/14/2025 3:00 PM EDT Surgery [facility] OR [address] [place] [phone] Christa Jones MD ENDOSCOPIC RELEASE LEFT CARPAL TUNNEL [[id number] (CPT )] 03/14/2025 12:11 PM EDT - 03/14/2025 6:01 PM EDT Hospital Encounter [facility] OR [address] [place] [phone] Christa Jones MD Discharge Disposition: Home or Self Care 02/26/2025 2:45 PM EDT Consult Orthopedic Surgery - [place] [address] [place] [phone] Christa Jones MD Carpal tunnel syndrome on left (Primary Dx) from Last 3 Months [...] 64 03/14/2025 5:21 PM EDT Temperature 36.1 C (97 F) 03/14/2025 5:13 PM EDT Respiratory Rate 16 [...] Vaccine ( - 2023-2 5 season) 2024 Colorectal Cancer Screening: Colonoscopy 09/13/2024 HIV Screening 09/13/2024 Hepatitis C Screening 09/13/2024 Social Influencers of Health Screening 09/13/2024 Depression Screening 02/09/2025 02/10/2024 Influenza Vaccine (#1) 2025 09/14/2024 Cervical Cancer Screening: P ap Smear 03/15/2027 03/15/2024 Cholesterol Screening (Lipid Panel) 02/10/2029 02/11/2024 HIB Vaccines Aged Out No longer eligi [...] Procedure Name Priority Date/Time Associated Diagnosis Comments [place] ENDOSCOPY WRIST SURGICAL WITH RELEASE TRANSVERSE CARPAL LIGAMENT 03/14/2025 4:28 PM EDT Carpal tunnel syndrome on left from Last 3 Months Insurance [facility] Advance Directives * Full Code - [...] currently active code status orders. Care Teams Signs Sales Representative Relationship Specialty Start Date End Date Namita Castañeda MD [address] [place] [phone] PCP - General Family Medicine 09/13/24
--- NOTE | 2025-05-08 08:41 | A.OFFVIS_ITS ---
Vital Signs 05/08/25 08:43 Height 5 ft 4 in Weight 187 lb BMI 32.1 Intake Visit Reasons: EMB Results Security Consultant Required: Yes Security Consultant Language: Fire Captain Services: Security Consultant Present (in person) Security Consultant Name: Ros JENNINGS Information Interpreted: non-clinical & clinical Accompanied by: Self / Same As Patient Allergies No Known Allergies Allergy (Verified 05/08/25 08:49) Post menopausal: Yes HPI Comments Details: The patient is presenting for follow-up to discuss the results of her abnormal uterine bleeding workup and options of treatment. The following workup was done.: H&H= 12.1/36.5 TSH, hCG, GC and chlamydia were negative. FSH/LH= 60.2/38.4 The endometrial biopsy pathology report showed the following: Endometrium, biopsy: Strips of weakly proliferative endometrium and tubal metaplasia; negative for atypia, hyperplasia or malignancy Last co testing done in 03/30 was negative Last screening mammogram in 03/31 was BI-RADS 1 Last pelvic ultrasound in 01/29 showed the following: Anteverted uterus is 9.5 cm length. Normal myometrium. Calcification within the lower uterine segment spanning 9 mm x 7 mm x 13 mm. No endometrial lesion, 6 mm thickness. Right ovary 2.2 x 0.9 x 1.3 cm. Left ovary 2.4 x 1.5 x 2.0 cm. Normal color Doppler with arterial/venous spectral tracing of both ovaries. No free fluid PFSH Surgical History Hx of appendectomy Hx of cholecystectomy Hx of carpal tunnel repair Family History Father Diabetes HTN (hypertension) Mother Diabetes HTN (hypertension) Social History Household Members: Spouse Housing: House Alcohol intake: never Patient Tobacco Use Status: Never used Tobacco Current occupational status: unemployed Sexual orientation: Straight/Heterosexual Gender identity: Female Review of Systems Const All systems reviewed & are unremarkable except as noted in HPI and below Reports as per HPI and Reports no additional complaints GI Reports no additional complaints Reports no additional complaints Physical Exam Vital Signs: BMI result Body Mass Index 32.1 Assessment & Plan Assessment & Plan (1) Abnormal uterine bleeding (AUB): Comment: Elevated FSH/LH Proliferative endometrium Code(s): N93.9 - Abnormal uterine and vaginal bleeding, unspecified Category: Medical Plan: Discussed with the patient the results of the pathology of the endometrial scrapings showing proliferative endometrium. Discussed with the patient the sensitivity, specificity, positive and negative predictive value, of endometrial biopsy in detecting endometrial pathology including but not limited to endometrial hyperplasia, cancer and other pathology; in addition discussed the patient the pathology of the endometrium in post menopause is associated with an increase in the risk of endometrial hyperplasia and malignancy in patient with preferred of endometrial pathology in menopause. Recommended to the patient progesterone treatment , levo norgestrel IUD for p.o. progestins in addition to repeat endometrial biopsy every 3 months for a year. All pros and cons, risks and benefits of each were discussed with the patient. The patient decided to proceed with Mirena IUD. so a more detailed discussion about it was conducted including mechanism of action, risks (uterine perforation, infection, injury to bladder, bowel, displacement, increase in the risk of breast cancer and others) benefits (decrease the risk of future endometrial hyperplasia and carcinoma of the endometrium ...). GC/CT were taken last visit and were negative and the patient was instructed to to schedule Mirena IUD insertion toño and to schedule her next screening mammogram toño; in addition , recommended repeat endometrial biopsy every 3 months for 1 year. Instructed the patient to call in case is vaginal bleeding bleeding recurs, schedule endometrial biopsy in 3 months and IUD insertion within week All questions answered and the patient verbalized understanding and agreed with the plan. Coding Level of Care Code Est Pt Level 3 (33000) Diagnoses Abnormal uterine bleeding (AUB) N93.9
[2025-05-08 08:43] VITALS: BMI 32.1
== END 2025-05-08 09:15 | disposition home or self-care (01) ==
LOC: HO.HWS 08:34
PROVIDERS: PCP Family Medicine; Visit Provider Obstetrics & Gynecology
DX: N93.9 Abnormal uterine and vaginal bleeding, unspecified (principal)
CPT/HCPCS: 99213

== ENCOUNTER → 2025-05-14 13:27 | Outpatient (BNVA) | payer OTHER, SELFPAY | PROVIDERS: PCP Family Medicine; Visit Provider Obstetrics & Gynecology | DX: Z30.430 Encounter for insertion of intrauterine contraceptive device (principal); N93.9 Abnormal uterine and vaginal bleeding, unspecified | CPT/HCPCS: 58300; J7298 ==

== ENCOUNTER 2025-07-12 07:57 | Outpatient (REF) | payer OTHER, SELFPAY | END 2025-07-12 07:58 | disposition home or self-care (01) | LOC: HO.LNP 07:57 | PROVIDERS: PCP Family Medicine; Visit Provider Obstetrics & Gynecology | DX: N93.9 Abnormal uterine and vaginal bleeding, unspecified (principal) | CPT/HCPCS: 58100; 88305 ==

== ENCOUNTER 2025-07-12 07:57 | Outpatient (AMB) | payer OTHER, SELFPAY ==
--- NOTE | 2025-07-12 07:58 | MHC.OFFVIS ---
Vital Signs 07/12/25 08:00 Height 5 ft 4 in Weight 187 lb BMI 32.1 Intake Visit Reasons: Bleeding with IUD/ ? EMB Radio Time Sales Supervisor Required: Yes Radio Time Sales Supervisor Language: Trench Digging Machine Operator Services: Radio Time Sales Supervisor Present (in person) Radio Time Sales Supervisor Name: Ros JENNINGS Information Interpreted: non-clinical & clinical [employer] Internship: [employer] Internship Present (Ros JENNINGS) Accompanied by: Self / Same As Patient Allergies No Known Allergies Allergy (Verified 07/12/25 08:01) Post menopausal: Yes HPI Comments Details: Presenting for three-months repeat EMB follow-up doing well , no complaints PFSH Surgical History Hx of appendectomy Hx of cholecystectomy Hx of carpal tunnel repair Family History Father Diabetes HTN (hypertension) Mother Diabetes HTN (hypertension) Social History Household Members: Spouse Housing: House Alcohol intake: never Patient Tobacco Use Status: Never used Tobacco Current occupational status: unemployed Sexual orientation: Straight/Heterosexual Gender identity: Female Review of Systems Const All systems reviewed & are unremarkable except as noted in HPI and below Physical Exam Vital Signs: BMI result Body Mass Index 32.1 General: Yes no CVA tenderness External Female Exam: normal external appearance and normal appearance of the urethra Speculum Exam - Vagina: normal appearance of the vagina, normal palpation, no lesions and no masses Speculum Exam - Cervix: normal appearance of the cervix, normal palpation, no lesions, no masses, nontender and Other cervical findings present (IUD string in place) Bimanual exam- vagina & uterus: normal bimanual exam, normal palpation, uterine size normal, normal palpation, uterine shape normal, No Cervical tenderness present and non-tender Bimanual Exam- Adnexa, other: normal adnexae Back/Spine/Pelvis Back: no CVA tenderness Office Procedures Endometrial Biopsy Details: The patient was counseled regarding the indication and benefits of endometrial sampling to rule out endometrial pathology including not limited to endometrial hyperplasia or endometrial cancer and others; The alternatives (Either do nothing vs. hysteroscopy D&C) & the risks were discussed with the patient including but not limited: pain, uterine perforation, bleeding, infection, possible injury to bladder, bowel, ureter, possible need for blood transfusion with all its possible risks. The patient verbalized understanding all questions answered and signed consent. The patient was placed into the dorsal lithotomy position; a speculum was inserted in the vagina. Using aseptic technique for the procedure, the cervix was cleansed with Betadine. The anterior lip of the cervix was grasped with a single tooth tenaculum. The uterus was sounded to 7 cm with a 4 mm Pipelle was used. Tissues samples were obtained and placed in formalin, in a patient labeled container and sent to the pathology department. At the end of the procedure, there was minimal bleeding noted The patient tolerated the procedure well and was discharged in good condition with the following instructions: Nothing in the vagina until the bleeding stops. No sex until the bleeding stops, to call if any of the following occurs: fever (>100.4), flu-like symptoms, abdominal pain, heavy bleeding, four smelling vaginal discharge. The patient was instructed to schedule a Follow up appointment in 2 weeks to discuss pathology results of the biopsy and treatment options. This note was generated with a voice recognition program. Some errors may have been overlooked during the review of this note. Sometimes these errors may affect the content or meaning of a given sentence. [id number] Biopsy Assessment & Plan Assessment & Plan (1) Abnormal uterine bleeding (AUB): Comment: Elevated FSH/LH Proliferative endometrium Code(s): N93.9 - Abnormal uterine and vaginal bleeding, unspecified Category: Medical Plan: EMB repeated, see procedure note Orders: Orders AMB Endometrial Biopsy Today N93.9 - Abnormal uterine and vaginal bleeding, unspecified Coding Level of Care Code Procedure Only Diagnoses Abnormal uterine bleeding (AUB) N93.9 CPT Codes Endometrial Biopsy - CPT: 43190-Uzwnwedijcl Biopsy ([id number])
--- OUTSIDE RECORDS SUMMARY | 2025-07-12 07:59 | XMS_ITS | Clinical Summary ---
Author Organization [employer] Address [address] [place] [address] [address] [place] [address] Care Team Providers Care Spotter Name Role Phone Namita Castañeda MD Primary Care Provider [phone] Allergies No known active allergies Medications ibuprofen (IBU) 800 MG tablet 1 tablet every 8 hours with food x 7 days 21 tablet 2025 Active predniSONE (Deltasone) 20 MG tabletIndication s:Left shoulder pain, unspecified chronicity 2 tabs po daily for 5 days 10 tablet 06/17/2025 Active Active Problems Problem Noted Date Diagnosed [...] recommended reduction of 20-30% of maintenance calories; agriculture inspector referral offered. Recommended to decrease soda and [...] Encounters Date Type Department Care Team Description 06/17/2025 10:20 AM EDT Office Visit [facility] [address] [place] [phone] Therese Sanchez MD Left shoulder pain, unspecified chronicity (Primary Dx) 06/17/2025 Travel from Last 3 Months Family History [...] Sign Reading Time Taken Comments Blood Pressure 129/65 06/17/2025 9:13 AM EDT Pulse 98 06/17/2025 9:13 AM EDT Temperature 36.7 C (98.1 F) 06/17/2025 9:13 AM EDT Respiratory Rate 20 06/17/2025 9:13 AM EDT Oxygen Saturation 98% 2025 10: 38 AM EST Inhaled Oxygen Concentration - - Weight 89.7 kg (197 lb 12.8 oz) 06/17/2025 9:13 AM EDT Height 162.6 cm (5' 4 ) 06/17/2025 9:13 AM EDT Body Mass Index 33.95 06/17/2025 9:13 AM EDT Plan of Treatment Health Maintenance Due [...] 2021 Zoster Vaccines (1 of 2) 2021 Dental Oral Exam 01/14/2025 07/16/2024 Depression Screening 02/09/2025 02/10/2024, 02/10/2024 SDOH Screening 02/09/2025 02/10/2024 COVID-19 Vaccine (1 - 2023-2 5 season) 2025 Influenza Vaccine (#1) 2025 09/14/2024 Dental X-Ray: Bitewings 07/17/2025 07/16/2024 Dental Prophylaxis 07/18/2025 01/14/2025, 07/16/2024 Tobacco Screening 01/14/2026 01/14/2025 Mammogram 03/27/2027 03/27/2025, 03/02/2024 Dental X-Ray: Full Mouth 07/17/2027 07/16/2024 Lipid Panel 02/10/2029 02/11/2024 Cervical Cancer Screening 03/15/2029 HPV/Cotest 03/15/2029 03/15/2024 Pap Smear 03/15/2029 03/15/2024 RSV Patients and Patients Aged 60 years or older (1 - 1-dose 75+ series) 2046 HIB Vaccines Aged Out No longer eligi [...] TOMOSYNTHESIS BILATERAL Routine 03/27/2025 2:45 PM EDT PROPHYLAXIS - ADULT Routine 01/14/2025 9 :00 AM EDT INTRAORAL - COMPLETE SERIES OF RADIOGRAPHIC IMAGES Routine 07/16/2024 10:30 AM EDT Dental calculus Dental plaque Secondary dental caries associated with failed or defective dental spiritism Dental caries COMPREHENSIVE ORAL EVALUATION - NEW OR ESTABLISHED PATIENT Routine 07/16/2024 10:30 AM EDT Dental calculus Dental plaque Secondary dental caries associated with failed or defective dental spiritism Dental caries HPV MRNA E6/E7 REFLEX TO [...] PM EDT Narrative 04/05/2025 4:26 PM EDT [facility] [address] [place] [place], [place] [address] Mammography Report Signed Patient: Ling Knott I MR#: [id number] : 1970 Acct:[id number] Age/Sex: 55 / F ADM Date: 03/27/25 Loc: MAMMO Attending Dr: Namita Castañeda MD Ordering Physician: Namita Castañeda MD Results: 1Nega tive Date of Service: 03/27/25 Follow Up: 1 Year From Orig ina Mammogram Procedure(s): MM tomosynthesis screening BI Accession Number(s): [id number] cc: Namita Castañeda MD EXAMINATION: MM SCREENING [...] Yeimi Cardenas DO 04/05/2025 04:23 PM EDT Dictated By: Yeimi Cardenas DO Signed By: <Electronically signed by Yeimi Cardenas DO in OV> 04/05/25 1623 DD/ 1445 TD/TT: 03/27/25 1500 Solution Specialist: Procedure Note Donotuseinterpreter, Image - 04/05/2025 [facility] [address] [place] [address] Mammography Report Signed Patient: Ling Knott [facility]#: [id number] : 1970Acct:[id number] Age/Sex: 55 / FADM Date: 03/27/25 Loc: MAMMO Attending Dr: Namita Castañeda MD Ordering Physician: Namita Castañeda MDResults: 1Nega tive Date of Service: 03/27/25Follow Up: 1 Year From Orig ina Mammogram Procedure(s): MM tomosynthesis screening BI Accession Number(s): [id number] cc: Namita Castañeda MD EXAMINATION: MM SCREENING [...] Yeimi Cardenas DO 04/05/2025 04:23 PM EDT Dictated By: Yeimi Cardenas DO Signed By: <Electronically signed by Yeimi Cardenas DO in OV> 04/05/25 1623 DD/ 1445 TD/TT: 03/27/25 1500 Solution Specialist: us Namita Castañeda MD [facility] BI PROCEDURES Edited Resu lt - Final * HPV mRNA E6/E7 w/Reflex to HPV Genotypes 16, 18/45 (03/15/2024 4:17 PM EDT) HPV nRNA E6/E7 Not Detected Not Detected [facility] Comment:Methodology: Transcr iption-Mediated AmplificationThis assay detects E6/E7 viral messenger RNA (mRNA) from 14high-risk HPV types (16,18,31,33,35,39,45,51,52,56,58,59,66,68).Cervical sources are required for HPV testing.If a vaginal source from a patient who has had atotal hysterectomy with removal of cervix wassubmitted, please contact the testing laboratoryfor alternative testing options.For additional information, please refer [email or web address](This link if provided for information/educational purposes only.)THIS TEST WAS PERFORMED AT:[facility] [place] [phone] HERNANDEZ MD HPV mRNA E6/E7 TNP [facility] HPV 16 RNA TNP [facility] HPV 18/45 RNA [facility] 03/15/2024 4:17 PM EDT 03/16/2024 7:00 AM EDT us Namita Castañeda MD LAB CYTOLOGY ORDERABLES Final Result [facility] [address] [place] [address] [phone] * Pap Smear (03/15/2024 4:17 PM EDT) Swab Cervical swab / Unknown 03/15/2024 4:17 PM EDT 03/16/2024 7:00 AM EDT Narrative [facility] - 03/31/2024 5:47 PM EDT ----- ------- Name: Ling Knott I Age/Sex: 54/F : 1970 Unit#: [id number] Attend Dr: Namita Castañeda MD Re03/19/24 Status: DEP REF Location: [facility] Disch: ----- ------- SPEC : [id number] RECD: 03/16/24 STATUS: ENMANUEL CAMPBELL NUM: [id number] MILLER: 03/15/[address] [facility] [address]: Namita Castañeda MD ENTERED: 03/16/24 SP TYPE: Pap Smr OTHR DR: ORDERED: Pap Smear Interpretation Satisfactory for evaluation. No endocervical cells seen. Negative for intraepithelial lesion or malignancy. HPV mRNA E6/E7: NOT DETECTED This assay detects E6/E7 viral messenger RNA (mRNA) from 14 high-risk HPV types (16, 18, 31, 33, 35, 39, 45, 51, 52, 56, 58, 59, 66, 68) HPV testing performed by [facility], [place], [place]. See reference laboratory portion of the EMR for entire report. Clinical Information LMP: Unknown date Previous PAP test: Unknown date, WNL Material Received ThinPrep-Vaginal/Cervical ----- ------- Signed (signature on file) Tory A Geno 03/31/24 1747 ----- ------- END OF REPORT Namita Castañeda MD LAB CYTOLOGY ORDERABLES Final Result Performing Organization Address [facility]/ZIP Co de Phone Number [facility] [address] [place] [address] [phone] * (ABNORMAL) Lipid Panel, Standard (02/11/2024 8:16 AM EDT) Triglycerides 131 <150 mg/dL [facility] Comment:Desirable Triglyceri de: less than 150 mg/dLBorderline High Triglyceride 150-199 mg/dLHigh Triglyceride: 200-499 mg/dLVery High Triglyceride: greater than or equal to 5OO mg/dL Cholesterol 199 <200 mg/dL [facility] Comment:Desirable Cholestero l: less than 200 mg/dLBorderline High Cholesterol: 200-239 mg/dLHigh Cholesterol: greater than 239 mg/dL LDL Cholesterol Calculated 109(H) <100 mg/dL [facility] Comment:Desirable LDL: less than 100 mg/dLNear Optimal/Above Optimal LDL: 110- 129 mg/dLBorderline High LDL: 130-159 mg/dLHigh LDL: 160-189 mg/dLVery High LDL: greater than or equal to 190 mg/dL HDL Cholesterol 64 >40 mg/dL [facility] Comment:Desirable HDL: great er than 40 mg/dL Note: This HDL assay may give artificially low results in patients with liver disease. Blood Venous blood specimen / Unknown 02/11/2024 8:16 AM EDT 02/11/2024 8:16 AM EDT us Namita Castañeda MD LAB BLOOD ORDERABLES Final Re sult Performing Organization Address City/[facility]/ZIP Co de Phone Number [facility] [address] [place] [address] [phone] from Last 3 Months or Most Recently Relevant to Health Maintenance Insurance [facility] Care Teams Spotter Relationship Specialty Start Date End Date Namita Castañeda MD [address] [place] [address] PCP - General Family Medicine 02/10/24
[2025-07-12 08:00] VITALS: BMI 32.1
--- OUTSIDE RECORDS SUMMARY | 2025-07-12 08:00 | XMS_ITS | Clinical Summary ---
Author Organization [facility] Address [address] [place] [phone] Phone Care Team Providers Care Card Hanger Name Role Phone Namita Castañeda MD Primary Care Provider [phone] Allergies No known active allergies Medications No known medications Active Problems Problem Noted Date Diagnosed Date History of carpal tunnel surgery of right wrist 02/26/2025 Carpal tunnel syndrome on left 12/04/2024 Paresthesia of left upper extremity 07/20/2024 Surgical History Surgery Date Site/Laterality Comments CARPAL [...] 2021 Zoster Vaccines (1 of 2) 2021 Colorectal Cancer Screening: Colonoscopy 09/13/2024 HIV Screening 09/13/2024 Hepatitis C Screening 09/13/2024 Social Influencers of Health Screening 09/13/2024 Depression Screening 11/07/2024 COVID-19 Vaccine (1 - 2023-2 5 season) 2025 Influenza Vaccine (#1) 2025 09/14/2024 Cervical Cancer [...] To be in a plan of exercise Insurance [facility] Advance Directives * Full Code - Default (Latest Code Status on File) Date Activated Date Inactivated Comments 03/14/2025 12:23 PM 03/14/2025 8:01 PM This is orde r is used when code status has not been discussed with the patient, or code status is otherwise unknown/unconfirmed To update the patient's code status, place a code status order. Do not modify or discontinue any currently active code status orders. Care Teams Card Hanger Relationship Specialty Start Date End Date Namita Castañeda MD [address] [place] [address] PCP - General Family Medicine 09/13/24
--- OUTSIDE RECORDS SUMMARY | 2025-07-12 08:00 | XMS_ITS | Encounter Summary ---
Author Organization [employer] Address [address] [facility] [address] [place] [address] Care Team Providers Care Confectionery Cooker Name Role Phone Namita Castañeda MD Primary Care Provider [phone] Encounter Details Date Type Department Care Team (Late st Contact Info) Description 12/07/2024 Orders Only [facility] [address] [place] [address] Provider, MD Carito Social History Tobacco Use [...] documented as of this encounter Care Teams Confectionery Cooker Relationship Specialty Start Date End Date Namita Castañeda MD [address] [place] [address] PCP - General Family Medicine 02/10/24 documented as of this encounter
--- OUTSIDE RECORDS SUMMARY | 2025-07-12 08:00 | XMS_ITS | Encounter Summary ---
Author Organization [employer] Address [address] [place] [address] [address] [place] [address] Care Team Providers Care Skein Winding Operator Name Role Phone Namita Castañeda MD Primary Care Provider [phone] Reason for Referral * Consultation (Routine) - Closed Specialty Diagnoses / Procedures Referred By Daya campos Referred To Contact Diagnoses Left median nerve neuropathy Eleonora Lyles MD [address] [place] [address] Phone: tel: fax: Christa Jones [address] [place] [phone] Phone: tel: fax: Referral ID Status Reason Start Date Expiration Date V isits Requested Visits Authorized [id number] Closed Specialty Services Required 08/30/2024 08/30/2025 1 1 Encounter Details Date Type Department Care Team (Late st Contact Info) Description 08/30/2024 Orders Only [facility] [address] [place], [place] [phone] Eleonora Lyles MD [address] [place], [place] [phone] Left median nerve neuropathy (Primary Dx) Social [...] documented as of this encounter Care Teams Skein Winding Operator Relationship Specialty Start Date End Date Namita Castañeda MD [address] [place] [address] PCP - General Family Medicine 02/10/24 documented as of this encounter
== END 2025-07-12 08:23 | disposition home or self-care (01) ==
LOC: HO.HWS 07:57
PROVIDERS: PCP Family Medicine; Visit Provider Obstetrics & Gynecology
DX: N93.9 Abnormal uterine and vaginal bleeding, unspecified (principal)
CPT/HCPCS: 58100

== ENCOUNTER 2025-07-15 08:40 | Outpatient (REF) | payer OTHER, SELFPAY ==
--- OUTSIDE RECORDS SUMMARY | 2025-07-12 10:45 | XMS_ITS | Encounter Summary ---
Author Organization [employer] Address [address] [place] [address] 7 [place] [address] Care Team Providers Care Leather Grader Name Role Phone Namita Castañeda MD Primary Care Provider [phone] Reason for Referral * Medications - Closed Specialty Diagnoses / Procedures Referred By Contac t Referred To Contact Diagnoses Class 2 severe obesity with serious comorbidity and body mass index (BMI) of 35.0 to 35.9 in adult, unspecified obesity type (CMS/HCC) Namita Castañeda MD [address] [place] [address] Phone: tel: fax: Referral ID Status Reason Start Date Expiration Date Visits Re quested Visits Authorized [id number] Closed 1 1 * Consultation (Routine) - Authorized Specialty Diagnoses / Procedures Referred By Contac t Referred To Contact Nutrition Diagnoses Class 2 severe obesity with serious comorbidity and body mass index (BMI) of 35.0 to 35.9 in adult, unspecified obesity type (CMS/HCC) Namita Castañeda MD [address] [place] [address] Phone: tel: fax: Referral ID Status Reason Start Date Expiration Date Visits Requested Visits Authorized [id number] Authorized Consult and Treat 07/12/2025 07/12/2026 1 1 Encounter Details Date Type Department Care Team ([facility] Contact Info) Description 07/12/2025 10:45 AM EDT Office Visit [facility] [address] [place] [address] Namita Castañeda MD [address] [place] [address] Abnormal uterine bleeding (Primary Dx); Dietary counseling; Exercise counseling; Class 2 severe obesity with serious comorbidity and body mass index (BMI) of 35.0 to 35.9 in adult, unspecified obesity type (CMS/HCC); Annual physical exam Social History Tobacco Use Types Packs/Day Years Used Date Smoking Tobacco: Never Passive Smoke Exposure: Never Smokeless Tobacco: Never Alcohol Use Standard Drinks/Week Comments Never 0 (1 standard drink = 0.6 oz pur e alcohol) Depression Answer Date Recorded Patient Health Questionnaire-9 Score 0 07/12/2025 Patient Health Questionnaire-9 Score 0 07/12/2025 Last PHQ-9: Questionnaire Data Not on file 0 07/12/2025 Housing Stability Answer Date Recorded What is your housing situation today? I have garrett asher 07/12/[address] you li ve. Do you have problems with any of the following? None of the above 07/12/2025 Food Insecurity Answer Date Recorded Within the past 12 months, y ou worried that your food would run out before you got money to buy more: Never True 07/12/2025 Within the past 12 months,th e food you bought just didn't last and you didn't have enough money to get more: Never True 03/2025 Transportation Answer Date Recorded In the past 12 months, has l ack of transportation kept you from medical appts, meetings, work or from getting things needed for daily living? No 07/12/2025 Utilities Answer Date Recorded In the past 12 months, has t he electric, gas, oil or water company threatened to shut off services in your home? No 07/12/2025 Depression Answer Date Recorded Patient Health Questionnaire-2 Score 0 07/12/2025 Internet Access Answer Date Recorded Internet Access Q1 Yes 07/12/2025 Internet Access Q2 Not on file 07/12/2025 Comments No Sex and Gender Information Value [...] Sign Reading Time Taken Comments Blood Pressure 134/70 07/12/2025 10:27 AM EDT Pulse 74 07/12/2025 10:27 AM EDT Temperature 36.2 C (97.2 F) 07/12/2025 10:27 AM EDT Respiratory Rate 20 07/12/2025 10:27 AM EDT Oxygen Saturation 98% 07/12/2025 10:27 AM EDT Inhaled Oxygen Concentration - - Weight 88.7 kg (195 lb 9.6 oz) 07/12/2025 10:27 AM EDT Height 159 cm (5' 2.6 ) 07/12/2025 10:27 AM EDT Body Mass Index 35.1 07/12/2025 10:27 AM EDT documented in this encounter Functional Status * Over the past 2 weeks, how often have you been bothered by any of the following problems? Question Answer Date of Assessment Author Patient Health Questionnaire -2 Score 0 07/12/2025 10:28 AM EDT Jd Dwyer [place] * Little interest or pleasure in doing things Answer Date of Assessment Author Not at all 07/12/2025 10:28 AM EDT Jd Dwyer [place] * Feeling down, depressed, or hopeless Answer Date of Assessment Author Not at all 07/12/2025 10:28 AM EDT Jd Dwyer [place] * Trouble falling or staying asleep, or sleeping too much Answer Date of Assessment Author Not at all 07/12/2025 10:28 AM EDT Jd Dwyer [place] * Feeling tired or having little energy Answer Date of Assessment Author Not at all 07/12/2025 10:28 AM EDT Jd Dwyer [place] * Poor appetite or overeating Answer Date of Assessment Author Not at all 07/12/2025 10:28 AM EDT Jd Dwyer [place] * Feeling bad about yourself - or that you are a failure or have let yourself or your family down Answer Date of Assessment Author Not at all 07/12/2025 10:28 AM EDT Jd Dwyer [place] * Trouble concentrating on things, such as reading the newspaper or watching television Answer Date of Assessment Author Not at all 07/12/2025 10:28 AM EDT Jd Dwyer [place] * Moving or speaking so slowly that other people could have noticed? Or the opposite - being so fidgety or restless that you have been moving around a lot more than usual. Answer Date of Assessment Author Not at all 07/12/2025 10:28 AM EDT Jd Dwyer [place] * Thoughts that you would be better off or hurting yourself in some way Answer Date of Assessment Author Not at all 07/12/2025 10:28 AM EDT Jd Dwyer [place] * Patient Health Questionnaire-9 Score Answer Date of Assessment Author 0 07/12/2025 10:28 AM EDT Jd Dwyer [place] documented as of this encounter Plan of Treatment Upcoming Encounters Date Type Department Care Team (Late st Contact Info) Description 07/30/2025 2:00 PM EDT Clinical Support [facility] MED & PEDS [address] [place] [address] 09/11/2025 9:45 AM EST Office Visit [facility] PED[facility] [address] [place] [address] Namita Castañeda MD [address] [place] [address] Scheduled Orders Name Type Priority Associated Diagnoses Orde r Schedule Hepatitis B Surface Antibody, Qualitative Lab Routine Annual physical exam Expected: 07/12/2025 (Approximate), Expires: 07/12/2026 Hepatitis B Core Antibody, Total Lab Routine Annual physical exam Expected: 07/12/2025 (Approximate), Expires: 07/12/2026 Hepatitis B surface antigen, EIA Lab Routine Annual physical exam Expected: 07/12/2025 (Approximate), Expires: 07/12/2026 HIV-1/2 Antigen and Antibodies, Fourth Generation, with Reflexes Lab Routine Annual physical exam Expected: 07/12/2025 (Approximate), Expires: 07/12/2026 Hepatitis C Antibody with Reflex to HCV, RNA, Quantitative, Real-Time PCR Lab Routine Annual physical exam Expected: 07/12/2025, Expires: 07/12/2026 CBC auto differential Lab Routine Class 2 severe obesity with serious comorbidity and body mass index (BMI) of 35.0 to 35.9 in adult, unspecified obesity type (CMS/HCC) Expected: 07/12/2025 (Approximate), Expires: 07/12/2026 Comprehensive Metabolic Panel Lab Routine Class 2 severe obesity with serious comorbidity and body mass index (BMI) of 35.0 to 35.9 in adult, unspecified obesity type (CMS/HCC) Expected: 07/12/2025 (Approximate), Expires: 07/12/2026 Lipid Panel, Standard Lab Routine Class 2 severe obesity with serious comorbidity and body mass index (BMI) of 35.0 to 35.9 in adult, unspecified obesity type (CMS/HCC) Expected: 07/12/2025 (Approximate), Expires: 07/12/2026 TSH W/Reflex to FT4 Lab Routine Class 2 severe obesity with serious comorbidity and body mass index (BMI) of 35.0 to 35.9 in adult, unspecified obesity type (CMS/HCC) Expected: 07/12/2025 (Approximate), Expires: 07/12/2026 Scheduled Referrals Name Type Priority Associated Diagnoses Orde r Schedule Referral to Nutrition Therapy Outpatient Referral Routine Class 2 severe obesity with serious comorbidity and body mass index (BMI) of 35.0 to 35.9 in adult, unspecified obesity type (CMS/HCC) Expected: 07/12/2025 (Approximate), Expires: 07/12/2026 documented as of this encounter Visit Diagnoses Diagnosis Abnormal uterine bleeding- Primary Unspecified disorder of menstruation and other abnormal bleeding from female genital tract Dietary counseling Dietary surveillance and counseling Exercise counseling Class 2 severe obesity with serious comorbidity and body mass index (BMI) of 35.0 to 35.9 in adult, unspecified obesity type (CMS/HCC) Annual physical exam Routine general medical examination at a health care facility documented in this encounter Additional Health Concerns Assessment Noted Time PHQ-9 Depression Total Score: 0 07/12/20 25 10:28 AM EDT documented as of this encounter Care Teams Leather Grader Relationship Specialty Start Date End Date Namita Castañeda MD [address] [place] [address] PCP - General Family Medicine 02/10/24 documented as of this encounter
--- OUTSIDE RECORDS SUMMARY | 2025-07-15 09:40 | XMS_ITS | Clinical Summary ---
Author Organization [facility] Address [address] [place] [phone] Phone Care Team Providers Care Regional Administrative Assistant Name Role Phone Namita Castañeda MD Primary Care Provider [phone] Allergies No known active allergies Medications No [...] Vaccine (1 - 2023-2 5 season) 2025 Cervical Cancer Screening: P ap Smear 03/15/2027 03/15/2024 Cholesterol Screening (Lipid Panel) 02/10/2029 02/11/2024 Influenza Vaccine Completed 07/12/2025, 09/14/2024 HIB Vaccines Aged Out No longer [...] to complete this topic RSV Immunization Patients Under 20 months Aged Out No longer eligible [...] be in a plan of exercise Insurance [facility] Advance Directives * Full Code - Default [...] currently active code status orders. Care Teams Regional Administrative Assistant Relationship Specialty Start Date End Date Namita Castañeda MD [address] [place] [address] PCP - General Family Medicine 09/13/24
--- OUTSIDE RECORDS SUMMARY | 2025-07-15 09:40 | XMS_ITS | Encounter Summary ---
Author Organization [employer] Address [address] [place] [address] [address] [place] [address] Care Team Providers Care Assistive Technology Specialist Name Role Phone Namita Castañeda MD Primary Care Provider [phone] Reason for Referral * Consultation (Routine) - Closed Specialty Diagnoses / Procedures Referred By Daya campos Referred To Contact Diagnoses Left median nerve neuropathy Eleonora Lyles MD [address] [place] [address] Phone: tel: fax: Christa Jones [address] [place] [address] Phone: tel: fax: Referral ID Status Reason Start Date Expiration Date V isits Requested Visits Authorized [id number] Closed Specialty Services Required 08/30/2024 08/30/2025 1 1 Encounter Details Date Type Department Care Team (Late st Contact Info) Description 08/30/2024 Orders Only [facility] [address] [place], [place] [id number] Eleonora Lyles MD [address] [place], [place] [phone] Left median nerve neuropathy (Primary Dx) Social [...] Description 07/30/2025 2:00 PM EDT Clinical Support [facility] MED & PEDS [address] [place] [address] 09/11/2025 9:45 AM EST Office Visit [facility] MED & PED[facility] [address] [place] [address] Namita Castañeda MD [address] [place] [address] Scheduled Referrals Name Type Priority Associated Diagnoses [...] documented as of this encounter Care Teams Assistive Technology Specialist Relationship Specialty Start Date End Date Namita Castañeda MD [address] [place] [address] PCP - General Family Medicine 02/10/24 documented as of this encounter
--- OUTSIDE RECORDS SUMMARY | 2025-07-15 09:40 | XMS_ITS | Encounter Summary ---
Author Organization [employer] Address [address] [place] [address] Care Team Providers Care Art Department Head Name Role Phone Namita Castañeda MD Primary Care Provider [phone] Encounter Details Date Type Department Care Team (Latest Contact Info) Description 07/12/2025 Travel Social History Tobacco Use Types Packs/Day [...] housing situation today? I have garrettmarvin asher 07/12/[address] you [...] on file documented as of this encounter Functional Status * Over the [...] Description 07/30/2025 2:00 PM EDT Clinical Support [facility] MED & PEDS [address] [place] [address] 09/11/2025 9:45 AM EST Office Visit [facility] MED [facility] PEDS [address] [place] [address] Namita Castañeda MD [address] [place] [address] documented as of this encounter Visit Diagnoses Not on filedocumented in this encounter Additional Health Concerns Assessment Noted Time PHQ-9 Depression Total Score: 0 07/12/20 25 10:28 AM EDT documented as of this encounter Care Teams Art Department Head Relationship Specialty Start Date End Date Namita Castañeda MD [address] [place] [address] PCP - General Family Medicine 02/10/24 documented as of this encounter
--- OUTSIDE RECORDS SUMMARY | 2025-07-15 09:40 | XMS_ITS | Encounter Summary ---
Author Organization [employer] Address [address] [facility] 7[address] [place] [address] Care Team Providers Care Manager Animation Name Role Phone Namita Castañeda MD Primary Care Provider [phone] Encounter Details Date Type Department Care Team (Late st Contact Info) Description 12/07/2024 Orders Only [facility] [address] [place] [address] Provider, MD [place] Social History Tobacco Use [...] Description 07/30/2025 2:00 PM EDT Clinical Support [facility] PED[facility] [address] [place] [address] 09/11/2025 9:45 AM EST Office Visit [facility] [address] [place] [address] Namita Castañeda MD [address] [place] [address] documented as of this encounter Procedures Procedure [...] documented as of this encounter Care Teams Manager Animation Relationship Specialty Start Date End Date Namita Castañeda MD [address] [place] [address] PCP - General Family Medicine 02/10/24 documented as of this encounter
--- OUTSIDE RECORDS SUMMARY | 2025-07-15 09:40 | XMS_ITS | Encounter Summary ---
Author Organization [employer] Address [address] [place] [address] [address] [place] [address] Care Team Providers Care Poultry Offal Worker Name Role Phone Namita Castañeda MD Primary Care Provider [phone] Reason for Visit * Reason Comments Med Change Request Encounter Details Date Type Department Care Team ([facility] Contact Info) Description 07/12/2025 Refill [facility] MED & PEDS [address] [place] [address] Namita Castañeda MD [address] [place] [address] Class 2 severe obesity with serious comorbidity and body mass index (BMI) of 35.0 to 35.9 in adult, unspecified obesity type (CMS/HCC) Social History Tobacco Use Types Packs/Day Years [...] 11:45 AM EDT Sexual Orientation Straight 07/31/2024 9 :56 AM EDT Occupation Industry Job Start Date [...] Not at all 07/12/2025 10:28 AM EDT dJ Dwyer [place] * Thoughts that you would [...] Description 07/30/2025 2:00 PM EDT Clinical Support [facility] PEDS [address] [place] [address] 09/11/2025 9:45 AM EST Office Visit [facility] PED[facility] [address] [place] [address] Namita Castañeda MD [address] [place] [address] documented as of this encounter Visit Diagnoses Diagnosis Class 2 severe obesity with serious comorbidity and body mass index (BMI) of 35.0 to 35.9 in adult, unspecified obesity type (CMS/HCC) documented in this encounter Additional Health Concerns Assessment Noted Time PHQ-9 Depression Total Score: 0 07/12/20 25 10:28 AM EDT documented as of this encounter Care Teams Poultry Offal Worker Relationship Specialty Start Date End Date Namita Castañeda MD [address] [place] [address] PCP - General Family Medicine 02/10/24 documented as of this encounter
--- OUTSIDE RECORDS SUMMARY | 2025-07-15 09:40 | XMS_ITS | Clinical Summary ---
Author Organization [employer] Address [address] [place] [address] 7t [place] [address] Care Team Providers Care Reclamation Supervisor Name Role Phone Namita Castañeda MD Primary Care Provider [phone] Allergies No known active allergies Medications Levonorgestrel (MIRENA, 52 MG, IU)Indications :Abnormal Uterine Bleeding by Intrauterine route. Active Tirzepatide-We ight Management (Zepbound) 2.5 MG/0.5ML solution auto-injectorI ndications:Cla ss 2 severe obesity with serious comorbidity and body mass index (BMI) of 35.0 to 35.9 in adult, unspecified obesity type ([facility]) Inject 0.5 mL (2.5 mg) under the skin 1 (one) time per week. 2 mL 1 07/12/20 25 Active ibuprofen (IBU) 800 MG tablet 1 tablet every 8 hours with food x 7 days 21 tablet 01/09/20 25 025 Discontinued predniSONE (Deltasone) 20 MG tabletIndicati ons:Left shoulder pain, unspecified chronicity 2 tabs po daily for 5 days 10 tablet 06/17/20 25 025 Discontinued Active Problems Problem Noted Date Diagnosed Date Abnormal uterine bleeding 07/12/2025 History of carpal tunnel surgery of right wrist 02/26/2025 Localized osteoarthritis of left knee 07/20/2024 Overview [...] recommended reduction of 20-30% of maintenance calories; exceptional children's teacher referral offered. Recommended to decrease soda and [...] Encounters Date Type Department Care Team Description 07/12/2025 10:45 AM EDT Office Visit [facility] [address] [place] [address] Namita Castañeda MD Abnormal uterine bleeding (Primary Dx); Dietary counseling; Exercise counseling; Class 2 severe obesity with serious comorbidity and body mass index (BMI) of 35.0 to 35.9 in adult, unspecified obesity type (CMS/HCC); Annual physical exam 07/12/2025 Refill [facility] [address] [place] [address] Namita Castañeda MD Class 2 severe obesity with serious comorbidity and body mass index (BMI) of 35.0 to 35.9 in adult, unspecified obesity type (CMS/HCC) 07/12/2025 Travel 06/17/2025 10:20 AM EDT Office Visit [facility] [address] [phone] Therese Sanchez MD Left shoulder pain, unspecified [...] Mass Index 35.1 07/12/2025 10:27 AM EDT Plan of Treatment Upcoming Encounters Date Type Department Care Team (Late st Contact Info) Description 07/30/2025 2:00 PM EDT Clinical Support [facility] [address] [place] [address] 09/11/2025 9:45 AM EST Office Visit [facility] [address] [place] [address] Namita Castañeda MD [address] [place] [address] Health Maintenance Due Date Last Done Comments CT Colonography 1970 Colonoscopy 1971 Colorectal Cancer Screening 1971 FIT DNA/Cologuard 1971 FIT 1971 FOBT 1970 HIV Screening 1971 Sigmoidoscopy 1971 Hepatitis C Screening 1989 DTaP/Tdap/Td Vaccines (1 - Tdap) 1990 Hepatitis B Vaccines (1 of 3 - 19+ 3-dose series) 1990 Pneumococcal Vaccine: 50+ Years (1 of 1 - PCV) 2021 Zoster Vaccines (1 of 2) 2021 Dental Oral Exam 01/14/2025 07/16/2024 COVID-19 Vaccine ( - 2023-2 5 season) 2025 Influenza Vaccine (#1) 2025 09/14/2024 Dental X-Ray: Bitewings 07/17/2025 07/16/2024 Dental Prophylaxis 07/18/2025 01/14/2025, 07/16/2024 Alcohol/Substance Use Screening 07/12/2026 07/12/2025 Depression Screening 07/12/2026 07/12/2025, 07/12/2025 Disability Screening 07/12/2026 07/12/2025 SDOH Screening 07/12/2026 07/12/2025 Tobacco Screening 07/12/2026 07/12/2025 Mammogram 03/27/2027 03/27/2025, 03/02/2024 Dental X-Ray: Full [...] caries associated with failed or defective dental mormonism Dental caries COMPREHENSIVE ORAL EVALUATION - NEW OR ESTABLISHED PATIENT Routine 07/16/2024 10:30 AM EDT Dental calculus Dental plaque Secondary dental caries associated with failed or defective dental mormonism Dental caries HPV MRNA E6/E7 REFLEX TO [...] Narrative 04/05/2025 4:26 PM EDT [facility] [address] [place], [place] [address] Mammography Report Signed Patient: Ling Knott I MR#: [id number] : 1970 Acct:[id number] Age/Sex: 55 / F ADM Date: 03/27/25 Loc: MAMMO Attending Dr: Namita Castañeda MD Ordering Physician: Namita Castañeda MD Results: 1Nega tive Date of Service: 03/27/25 Follow Up: 1 Year From Orig ina Mammogram Procedure(s): MM tomosynthesis screening BI Accession Number(s): [id number] cc: Namita Castañeda MD EXAMINATION: MM SCREENING [...] 04/05/25 1623 DD/ 1445 TD/TT: 03/27/25 1500 Top Lift Trimmer: Procedure Note Donotuseinterpreter, Image - 04/05/2025 [facility] [address] [place] [address] Mammography Report Signed Patient: Ling Knott IMR#: [id number] : 1970Acct:[id number] Age/Sex: 55 / FADM Date: 03/27/25 Loc: MAMMO Attending Dr: Namita Castañeda MD Ordering Physician: Namita Castañeda MDResults: 1Nega tive Date of Service: 03/27/25Follow Up: 1 Year From Orig ina Mammogram Procedure(s): MM tomosynthesis screening BI Accession Number(s): [id number] cc: Namita Castañeda MD EXAMINATION: MM SCREENING [...] 04/05/25 1623 DD/ 1445 TD/TT: 03/27/25 1500 Top Lift Trimmer: Naimta Castañeda MD [facility] BI PROCEDURES Edited Resu lt - Final * HPV mRNA E6/E7 w/Reflex to HPV Genotypes 16, 18/45 (03/15/2024 4:17 PM EDT) HPV nRNA E6/E7 Not Detected Not Detected [facility] Comment:Methodology: Transcr iption-Mediated AmplificationThis assay detects E6/E7 viral messenger RNA (mRNA) from 14high-risk HPV types (16,18,31,33,35,39,45,51,52,56,58,59,66,68).Cervical sources are required for HPV testing.If a vaginal source from a patient who has had atotal hysterectomy with removal of cervix wassubmitted, please contact the testing laboratoryfor alternative testing options.For additional information, please refer [email or web address].[employer]/faq/OOI168p8(This link if provided for information/educational purposes only.)THIS TEST WAS PERFORMED AT:[employer] [place] [phone] HERNANDEZ MD HPV mRNA E6/E7 TNP [facility] HPV 16 RNA TNP [facility] HPV 18/45 RNA [facility] 03/15/2024 4:17 PM EDT 03/16/2024 7:00 AM EDT us Namita Castañeda MD LAB CYTOLOGY ORDERABLES Final Result [facility] [address] [place] [phone] * Pap Smear (03/15/2024 4:17 PM EDT) Swab Cervical swab / Unknown 03/15/2024 4:17 PM EDT 03/16/2024 7:00 AM EDT Narrative [facility] - 03/31/2024 5:47 PM EDT ----- ------- Name: Ling Knott I Age/Sex: 54/F : 1970 Unit#: [id number] Attend Dr: Namita Castañeda MD Re03/19/24 Status: DEP REF Location: [facility] Disch: ----- ------- SPEC : [id number] RECD: 03/16/24 STATUS: ENMANUEL CAMPBELL NUM: [id number] MILLER: 03/15/24 [facility] DR: Namita Castañeda MD ENTERED: 03/16/24 SP [...] 59, 66, 68) HPV testing performed by [employer], [place], [place]. See reference laboratory portion of the EMR for entire report. Clinical Information LMP: Unknown date Previous PAP test: Unknown date, WNL Material Received ThinPrep-Vaginal/Cervical ----- ------- Signed (signature on file) Tory Jerrica Lora 03/31/24 0857 ----- ------- END OF REPORT Namita Castañeda MD LAB CYTOLOGY ORDERABLES Final Result Performing Organization Address [facility] Co de Phone Number [facility] [address] [place] [address] [phone] * (ABNORMAL) Lipid Panel, Standard (02/11/2024 8:16 AM EDT) Triglycerides 131 <150 mg/dL [facility] Comment:Desirable Triglyceri de: less than 150 mg/dLBorderline High Triglyceride 150-199 mg/dLHigh Triglyceride: 200-499 mg/dLVery High Triglyceride: greater than or equal to 5OO mg/dL Cholesterol 199 <200 mg/dL [facility] Comment:Desirable Cholestero l: less than 200 mg/dLBorderline High Cholesterol: 200-239 mg/dLHigh Cholesterol: greater than 239 mg/dL LDL Cholesterol Calculated 109(H) <100 mg/dL [facility] Comment:Desirable LDL: less than 100 mg/dLNear Optimal/Above Optimal LDL: 110- 129 mg/dLBorderline High LDL: 130-159 mg/dLHigh LDL: 160-189 mg/dLVery High LDL: greater than or equal to 190 mg/dL HDL Cholesterol 64 >40 mg/dL [facility] Comment:Desirable HDL: great er than 40 mg/dL Note: This HDL assay may give artificially low results in patients with liver disease. Blood Venous blood specimen / Unknown 02/11/2024 8:16 AM EDT 02/11/2024 8:16 AM EDT us Namita Castañead MD LAB BLOOD ORDERABLES Final Re sult Performing Organization Address City/[facility]/ZIP Co de Phone Number [facility] [address] [place] [address] [phone] from Last 3 Months or Most Recently Relevant to Health Maintenance Insurance [facility] - [facility] Care Teams Reclamation Supervisor Relationship Specialty Start Date End Date Namita Castañeda MD [address] [place] [phone] PCP - General Family Medicine 02/10/24
[2025-07-15 14:56] LABS: MANUAL DIFF FLAG NO
[2025-07-15 15:22] LABS: Hematocrit 37.8 % (37.0-47.0); Hemoglobin 12.1 g/dl (12.0-16.0); Imm Gran Abs Auto 0.02 X10*3/uL (0.00-0.03); Imm Gran Pct Auto 0.2 % (0.0-0.4); Lymphocytes Absolute Auto 2.2 X10*3/uL (1.2-4.9); Mean Corpuscular HGB Conc 32.0 g/dl (31.0-35.0); Mean Corpuscular Hemoglobin 29.9 pg (27.0-33.0); Mean Corpuscular Volume 93.3 fL (80.0-98.0); NRBC Abs Auto 0.000 X10*3/uL (0.0-0.012); NRBC Pct Auto 0.0 /100WBC (0.0-0.2); Platelet Count 380 X10*3/uL (160-400); Red Blood Count 4.05 X10*6/uL (4.20-5.50); White Blood Count 8.1 X10*3/uL (4.8-10.8)
[2025-07-15 15:40] LABS: Alanine Aminotransferase 19 U/L (0-31); Albumin Level 4.1 g/dL (3.5-5.0); Alkaline Phosphatase 70 U/L (39-117); Anion Gap 12 (12-20); Aspartate Amino Transferase 27 U/L (5-31); Blood Urea Nitrogen 21 mg/dL (9-16); Calcium 8.9 mg/dL (8.4-10.2); Carbon Dioxide 26 mmol/L (22-29); Chloride 106 mmol/L (96-108); Cholesterol 217 mg/dL (<200); Estimated Glomerular Filt Rate > 60; HDL Cholesterol 63 mg/dL (>40); Potassium 4.2 mmol/L (3.3-5.1); Sodium 140 mmol/L (135-145); Total Protein 7.1 g/dL (6.5-8.0); Triglycerides 139 mg/dL (<150)
[2025-07-16 04:03] LABS: HBS Num1 1.55 mIU/mL (0-7.99); HBc Num1 0.04 S/CO (0.00-0.79); HBsAGNum1 0.62 S/CO (0.00-0.99); HIV Num 1 0.04 S/CO (0.00-0.99); Hepatitis B Surface Antigen Negative (Negative); ~HepC Num1 0.73 S/CO (0.00-0.79); ~Hepatitis B Surface Antibody NONREACTIVE (Nonreactive); ~Hepatitis C Antibody Nonreactive (Nonreactive)
== END 2025-07-15 08:41 | disposition home or self-care (01) ==
LOC: HO.CHCLDS 08:40
PROVIDERS: Visit Provider Family Medicine
DX: Z00.00 Encounter for general adult medical examination without abnormal findings (principal); E66.01 Morbid (severe) obesity due to excess calories; E66.812 Obesity, class 2; Z68.35 Body mass index [BMI] 35.0-35.9, adult; Z11.59 Encounter for screening for other viral diseases; Z11.4 Encounter for screening for human immunodeficiency virus [HIV]
CPT/HCPCS: 36415; 80053; 80061; 84443; 85025; 86704; 86706; 86803; 87340; 87389

== ENCOUNTER 2025-07-23 10:14 | Outpatient (AMB) | payer OTHER, SELFPAY ==
--- NOTE | 2025-07-23 10:14 | MHC.OFFVIS ---
Intake Visit Reasons: EMB results Fence Manufacture Supervisor Required: Yes Fence Manufacture Supervisor Language: Manager Fine Services: Fence Manufacture Supervisor Present (in person) Fence Manufacture Supervisor Name: DICK Barksdale Information Interpreted: non-clinical & clinical Allergies No Known Allergies Allergy (Verified 07/12/25 08:01) HPI Comments Details: The patient is presenting after endometrial biopsy. The patient has no complaints, no vaginal bleeding, no feverishness chills or abdominal pain. The endometrial biopsy pathology report showed the following: Fragments of inactive endometrium with pseudodecidualized stroma and necrosis consistent with progestin effect; negative for atypia, hyperplasia or malignancy. PFSH Surgical History Hx of appendectomy Hx of cholecystectomy Hx of carpal tunnel repair Family History Father Diabetes HTN (hypertension) Mother Diabetes HTN (hypertension) Social History Household Members: Spouse Housing: House Alcohol intake: never Patient Tobacco Use Status: Never used Tobacco Current occupational status: unemployed Sexual orientation: Straight/Heterosexual Gender identity: Female Review of Systems Const All systems reviewed & are unremarkable except as noted in HPI and below Reports as per HPI and Reports no additional complaints GI Reports no additional complaints Reports no additional complaints Telehealth Telehealth Telehealth Platform: APSX Location of provider rendering services: practice address Location of patient: address on file Patient Identification confirmed using: Name, : Yes Telehealth method: video Patient verbally consented to treatment: Yes Patient verbally consented to billing insurance company: Yes Patient informed of any privacy concerns related to visit: Yes Minutes spent on Phone/Video with Pt.: 3 Assessment & Plan Assessment & Plan (1) Abnormal uterine bleeding (AUB): Comment: Elevated FSH/LH 05/01 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 Instructions given the patient is schedule a 4 months EMB follow-up appointment and to call in case of abnormal uterine bleeding. All questions answered, the patient verbalized understanding I spent a total of 20 minutes reviewing the chart, talking to the patient via video and documenting in the medical record. Coding Level of Care Code Tele Est Pt Level 3 (29589) Diagnoses Abnormal uterine bleeding (AUB) N93.9
--- OUTSIDE RECORDS SUMMARY | 2025-07-23 13:24 | XMS_ITS | Encounter Summary ---
Author Organization [employer] Address [address] [place] [address] Care Team Providers Care Geophysical Party Chief Name Role Phone Namita Castañeda MD Primary Care Provider [phone] Encounter Details Date Type Department Care Team (Latest Contact Info) Description 07/23/2025 Travel Social History Tobacco Use Types Packs/Day [...] Description 07/30/2025 2:00 PM EDT Clinical Support [facility] [address] [place] [address] 09/11/2025 9:45 AM EST Office Visit [facility] [address] [place] [address] Namita Castañeda MD [address] [place] [address] documented as of this encounter Visit Diagnoses Not on filedocumented in this encounter Additional Health Concerns Assessment Noted Time PHQ-9 Depression Total Score: 0 07/12/20 25 10:28 AM EDT documented as of this encounter Care Teams Geophysical Party Chief Relationship Specialty Start Date End Date Namita Castañeda MD [address] [place] [phone] PCP - General Family Medicine 02/10/24 documented as of this encounter
--- OUTSIDE RECORDS SUMMARY | 2025-07-23 13:24 | XMS_ITS | Encounter Summary ---
Author Organization [employer] Address [address] [place] [address] [address]t [place] [address] Care Team Providers Care Strategic Account Executive Name Role Phone Namita Castañeda MD Primary Care Provider [phone] Reason for Visit * Reason Onset Date Comments Results 07/18/2025 Encounter Details Date Type Department Care Team ([facility] st Contact Info) Description 07/18/2025 Results Follow-Up [facility] [address] [place] [address] Namita Castañeda MD [address] [place] [address] Hepatitis B Surface Antibody, Qualitative, Hepatitis B Core Antibody, Total, Hepatitis B surface antigen, EIA, Additional followed-up results: 6 Social History Tobacco Use Types Packs/Day Years [...] encounter Miscellaneous Notes * Telephone Encounter - Peggy Granger RN - 07/18/2025 10:26 AM EDT TC x 2 placed to pt via [employer] tax map technician (Catrina ID#[id number]) to inform and advise of below PCP message.Advised pt per PCP elevated cholesterol and LDL. Advised ASCVD risk is low hence will not start statin medication, but recommend lifestyle modification. Advised pt to eat foods such as fruits, vegetables, beans, and whole grains. Advised pt to avoid foods such as red meat, butter, fried foods, cheese, and baked goods. Advised pt not immune to hepatitis B and provider recommends vaccination if pt would like. Pt agreeable to vaccination. Pt already scheduled for vaccination on 07/30/25 with [facility] nurses for TDAP and PCV20. Updated appointment notes to include Hepatitis B #1 at appointment on 07/30/25. Pt agreeable to vaccination at appointment on 07/30/25. Pt verbalized understanding and denies questions or concerns at this time. ----- Message from Namita Castañeda MD sent at 07/18/2025 9:47 AM EDT ----- Asif [employer] Team! Can you please call Ling Knott and inform about results? Patient has elevated cholesterol and LDL, ASCVD risk is low hence will not start statin, but recommend lifestyle modification. She also needs to be immune for hep B, please inform patient and assess if she wants to start series. Other labs within normal limits. Thanks! Namita ----- Message ----- From: Interface, Lab Results In Sent: 07/15/2025 3:23 PM EDT To: Namita Castañeda MD documented in this encounter Plan of Treatment Upcoming Encounters Date Type Department Care Team (Late st Contact Info) Description 07/30/2025 2:00 PM EDT Clinical Support [facility] [address] [place] [address] 09/11/2025 9:45 AM EST Office Visit [facility] [address] [place] [address] Namita Castañeda MD [address] [place] [address] documented as of this encounter Visit Diagnoses Not on filedocumented in this encounter Additional Health Concerns Assessment Noted Time PHQ-9 Depression Total Score: 0 07/12/20 25 10:28 AM EDT documented as of this encounter Care Teams Strategic Account Executive Relationship Specialty Start Date End Date Namita Castañeda MD [address] [place] [address] PCP - General Family Medicine 02/10/24 documented as of this encounter
--- OUTSIDE RECORDS SUMMARY | 2025-07-23 13:24 | XMS_ITS | Encounter Summary ---
Author Organization [employer] Address [address] [facility] [address] [place] [address] Care Team Providers Care Rug Cleaner Hand Name Role Phone Namita Castañeda MD Primary Care Provider [phone] Encounter Details Date Type Department Care Team (Late st Contact Info) Description 12/07/2024 Orders Only [facility] [address] [place] [address] Provider, MD Carito Social History Tobacco Use [...] Description 07/30/2025 2:00 PM EDT Clinical Support [facility] [address] [place] [address] 09/11/2025 9:45 AM EST Office Visit [facility] [address] [place] [address] Namita Castañeda MD [address] [place] [address] documented as of this encounter Procedures Procedure [...] documented as of this encounter Care Teams Rug Cleaner Hand Relationship Specialty Start Date End Date Namita Castañeda MD [address] [place] [phone] PCP - General Family Medicine 02/10/24 documented as of this encounter
--- OUTSIDE RECORDS SUMMARY | 2025-07-23 13:24 | XMS_ITS | Encounter Summary ---
Author Organization [employer] Address [address] [place] [address] [address] [place] [address] Care Team Providers Care Graves Registration Specialist Name Role Phone Namita Castañeda MD Primary Care Provider [phone] Reason for Referral * Consultation (Routine) - Closed Specialty Diagnoses / Procedures Referred By Daya campos Referred To Contact Diagnoses Left median nerve neuropathy Eleonora Lyles MD [address] [place] [address] Phone: tel: fax: Christa Jones [address] [place] [address] Phone: tel: fax: Referral ID Status Reason Start Date Expiration Date V isits Requested Visits Authorized [id number] Closed Specialty Services Required 08/30/2024 08/30/2025 1 1 Encounter Details Date Type Department Care Team (Late st Contact Info) Description 08/30/2024 Orders Only [facility] [address] [place], [place] [phone] Eleonora Lyles MD [address] [place], [place] [phone] Left median nerve neuropathy (Primary Dx) Social [...] Description 07/30/2025 2:00 PM EDT Clinical Support [facility] [address] [place] [address] 09/11/2025 9:45 AM EST Office Visit [facility] [address] [place] [address] Namita Castañeda MD [address] [place] [address] Scheduled Referrals Name Type Priority Associated Diagnoses [...] documented as of this encounter Care Teams Graves Registration Specialist Relationship Specialty Start Date End Date Namita Castañeda MD [address] [place] [address] PCP - General Family Medicine 02/10/24 documented as of this encounter
--- OUTSIDE RECORDS SUMMARY | 2025-07-23 13:24 | XMS_ITS | Clinical Summary ---
Author Organization [facility] Address [address] [place] [phone] Phone Care Team Providers Care Supervisor Component Assembler Name Role Phone Namita Castañeda MD Primary Care Provider [phone] Allergies No known active allergies Medications No [...] be in a plan of exercise Insurance [facility] Advance Directives * Full Code - [...] currently active code status orders. Care Teams Supervisor Component Assembler Relationship Specialty Start Date End Date Namita Castañeda MD [address] [place] [address] PCP - General Family Medicine 09/13/24
--- OUTSIDE RECORDS SUMMARY | 2025-07-23 13:24 | XMS_ITS | Clinical Summary ---
Author Organization [facility] Address [address] [place] [address] [address] [place] [address] Care Team Providers Care Acct Exec Name Role Phone Namita Castañeda MD Primary Care Provider [phone] Allergies No known active allergies Medications Levonorgestrel (MIRENA, 52 MG, IU)Indications :Abnormal Uterine Bleeding by Intrauterine route. Active phentermine 15 MG capsuleIndicat ions:Class 2 severe obesity with serious comorbidity and body mass index (BMI) of 35.0 to 35.9 in adult, unspecified obesity type (CMS/HCC) Take 1 capsule (15 mg) by mouth before breakfast. 28 capsule 2 07/15/20 25 Active ibuprofen (IBU) 800 MG tablet 1 tablet every 8 hours with food x 7 days 21 tablet 01/09/20 25 025 Discontinued predniSONE (Deltasone) 20 MG tabletIndicati ons:Left shoulder pain, unspecified chronicity 2 tabs po daily for 5 days 10 tablet 06/17/20 25 025 Discontinued Tirzepatide-We ight Management (Zepbound) 2.5 MG/0.5ML solution auto-injectorI ndications:Cla ss 2 severe obesity with serious comorbidity and body mass index (BMI) of 35.0 to 35.9 in adult, unspecified obesity type (CMS/HCC) Inject 0.5 mL (2.5 mg) under the skin 1 (one) time per week. 2 mL 1 07/12/20 25 025 Discontinued Active Problems Problem Noted [...] recommended reduction of 20-30% of maintenance calories; arc air operator referral offered. Recommended to decrease soda and [...] Encounters Date Type Department Care Team Description 07/23/2025 Travel 07/18/2025 Results Follow-Up [facility] [address] [place] [address] Namita Castañeda MD Hepatitis B Surface Antibody, Qualitative, Hepatitis B Core Antibody, Total, Hepatitis B surface antigen, EIA, Additional followed-up results: 6 07/12/2025 10:45 AM EDT Office Visit [facility] [address] [place] [address] Namita Castañeda MD Abnormal uterine bleeding (Primary Dx); Dietary counseling; Exercise counseling; Class 2 severe obesity with serious comorbidity and body mass index (BMI) of 35.0 to 35.9 in adult, unspecified obesity type (CMS/HCC); Annual physical exam 07/12/2025 Orders Only GENERIC EXTERNAL DATA DEPARTMENT Provider, Generic External Data 07/12/2025 Refill [facility] [address] [place] [address] Namita Castañeda MD Class 2 severe obesity with serious comorbidity and body mass index (BMI) of 35.0 to 35.9 in adult, unspecified obesity type (CMS/HCC) 07/12/2025 Travel 06/17/2025 10:20 AM EDT Office Visit [facility] [address] [place] [phone] Therese Sanchez MD Left shoulder pain, unspecified [...] 07/30/2025 2:00 PM EDT Clinical Support [facility] [address] [place] [address] 09/11/2025 9:45 AM EST Office Visit [facility] [address] [place] [address] Namita Castañeda MD [address] [place] [address] Health Maintenance Due Date Last Done Comments CT Colonography 1971 Colonoscopy 1971 Colorectal Cancer Screening 1970 FIT DNA/Cologuard 1971 FIT 1970 FOBT 1970 Sigmoidoscopy 1971 DTaP/Tdap/Td Vaccines (1 - Tdap) 1990 Hepatitis B Vaccines (1 of 3 - 19+ 3-dose series) 1990 Pneumococcal Vaccine: 50+ Years (1 of 1 - PCV) 2021 Zoster Vaccines (1 of 2) 2021 Dental Oral Exam 01/14/2025 07/16/2024 COVID-19 Vaccine (1 - 2023-2 5 season) 2025 Influenza Vaccine (#1) 2025 09/14/2024 Dental X-Ray: Bitewings 07/17/2025 07/16/2024 Dental Prophylaxis 07/18/2025 01/14/2025, 07/16/2024 Alcohol/Substance Use Screening 07/12/2026 07/12/2025 Depression Screening 07/12/2026 07/12/2025, 07/12/2025 SDOH Screening 07/12/2026 07/12/2025 Tobacco Screening 07/12/2026 07/12/2025 Disability Screening 07/23/2026 07/23/2025 Mammogram 03/27/2027 03/27/2025, 03/02/2024 Dental X-Ray: Full Mouth 07/17/2027 07/16/2024 Cervical Cancer Screening 03/15/2029 HPV/Cotest 03/15/2029 03/15/2024 Pap Smear 03/15/2029 03/15/2024 Lipid Panel 07/15/2030 07/15/2025, 02/11/2024 RSV Patients and Patients Aged 60 years or older (1 - 1-dose 75+ series) 2046 HIV Screening Completed 07/15/2025 Hepatitis C Screening Completed 07/15/2025 HIB Vaccines Aged Out No longer eligi [...] Procedure Name Priority Date/Time Associated Diagnosis Comments TSH W/REFLEX TO FT4 Routine 07/15/2025 8 :43 AM EDT Class 2 severe obesity with serious comorbidity and body mass index (BMI) of 35.0 to 35.9 in adult, unspecified obesity type (CMS/HCC) LIPID PANEL, STANDARD Routine 07/15/2025 8:43 AM EDT Class 2 severe obesity with serious comorbidity and body mass index (BMI) of 35.0 to 35.9 in adult, unspecified obesity type (CMS/HCC) COMPREHENSIVE METABOLIC PANEL Routine 07/15/2025 8:43 AM EDT Class 2 severe obesity with serious comorbidity and body mass index (BMI) of 35.0 to 35.9 in adult, unspecified obesity type (CMS/HCC) CBC WITH AUTO DIFFERENTIAL Routine 07/15/2025 8:43 AM EDT Class 2 severe obesity with serious comorbidity and body mass index (BMI) of 35.0 to 35.9 in adult, unspecified obesity type (CMS/HCC) HEPATITIS C AB W/REFL TO HCV RNA, QN, PCR Routine 07/15/2025 8:43 AM EDT Annual physical exam HIV 1/2 ANTIGEN/ANTIBODY, FOURTH GENERATION W/RFL Routine 07/15/2025 8:43 AM EDT Annual physical exam HEPATITIS B SURFACE ANTIGEN, EIA Routine 07/15/2025 8:43 AM EDT Annual physical exam HEPATITIS B CORE AB TOTAL Routine 07/15/2025 8:43 AM EDT Annual physical exam HEPATITIS B SURFACE ANTIBODY, QUALITATIVE Routine 07/15/2025 8:43 AM EDT Annual physical exam HEMATOXYLIN AND EOSIN STAIN Routine 07/12/2025 8:31 AM EDT BI MAMMOGRAM SCREENING TOMOSYNTHESIS BILATERAL Routine 03/27/2025 2:45 PM EDT PROPHYLAXIS - ADULT Routine 01/14/2025 9 :00 AM EDT INTRAORAL - COMPLETE SERIES OF RADIOGRAPHIC IMAGES Routine 07/16/2024 10:30 AM EDT Dental calculus Dental plaque Secondary dental caries associated with failed or defective dental denominational Dental caries COMPREHENSIVE ORAL EVALUATION - NEW OR ESTABLISHED PATIENT Routine 07/16/2024 10:30 AM EDT Dental calculus Dental plaque Secondary dental caries associated with failed or defective dental denominational Dental caries HPV MRNA E6/E7 REFLEX TO HPV 16, 18/45 Routine 03/15/2024 4:17 PM EDT PAP SMEAR Routine 03/15/2024 4:17 PM EDT Cervical cancer screening from Last 3 Months or Most Recently Relevant to Health Maintenance Results * TSH W/Reflex to FT4 (07/15/2025 8:43 AM EDT) TSH reflex Free T4 1.11 0.32 - 4.0 uIU/mL [facility] Blood Venous blood specimen / Unknown 07/15/2025 8:43 AM EDT 07/15/2025 2:52 PM EDT us Namita Castañeda MD LAB BLOOD ORDERABLES Final Re sult [facility] [address] [place] [address] [phone] * (ABNORMAL) CBC auto differential (07/15/2025 8:43 AM EDT) White Blood Count 8.1 4.8 - 10.8 X10*3/uL [facility] Red Blood Count 4.05(L) 4.20 - 5.50 X10*6/uL [facility] Hemoglobin 12.1 12.0 - 16.0 g/dl [facility] Hematocrit 37.8 37.0 - 47.0 % [facility] Mean Corpuscular Volume 93.3 80.0 - 98.0 fL [facility] Mean Corpuscular Hemoglobin 29.9 27.0 - 33.0 pg [facility] Mean Corpuscular HGB Conc 32.0 31.0 - 35.0 g/dl [facility] Red Cell Distribution Width 12.7 11.0 - 16.0 % [facility] Platelet Count 380 160 - 400 X10*3/uL [facility] Mean Platelet Volume 11.1 9.4 - 12.3 fL [facility] Neutrophils Percent Auto 58.0 45 - 73 % [facility] Imm Gran Pct Auto 0.2 0.0 - 0.4 % [facility] Lymphocytes Percent Auto 27.0 20 - 40 % [facility] Monocytes Percent Auto 7.9 2 - 11 % [facility] Eosinophils Percent Auto 5.9(H) 0 - 4 % [facility] Basophils Percent Auto 1.0 0 - 2 % [facility] NRBC Pct Auto 0.0 0.0 - 0.2 /100WBC [facility] Neutrophils Absolute Auto 4.7 2.0 - 8.3 x10*3/uL [facility] Imm Gran Abs Auto 0.02 0.00 - 0.03 X10*3/uL [facility] Lymphocytes Absolute Auto 2.2 1.2 - 4.9 X10*3/uL [facility] Monocytes Absolute Auto 0.6 0.1 - 1.2 X10*3/uL [facility] Eosinophils Absolute Auto 0.5(H) 0.0 - 0.4 X10*3/uL [facility] Basophils Absolute Auto 0.1 0.0 - 0.2 X10*3/uL [facility] NRBC Abs Auto 0.000 0.0 - 0.012 X10*3/uL [facility] Blood Venous blood specimen / Unknown 07/15/2025 8:43 AM EDT 07/15/2025 2:52 PM EDT Namita Castañeda MD LAB BLOOD ORDERABLES Final Re sult Performing Organization Address [facility] Co de Phone Number [facility] [address] [place] [phone] * Hepatitis C Antibody with Reflex to HCV, RNA, Quantitative, Real-Time PCR (07/15/2025 8:43 AM EDT) Hepatitis C Antibody Nonreactive Nonreactive [facility] Comment:Antibodies to HCV no t detected; does not exclude early acuteHCV infection. Blood Venous blood specimen / Unknown 07/15/2025 8:43 AM EDT 07/15/2025 2:52 PM EDT Namita Castañeda MD LAB BLOOD ORDERABLES Final Re sult Performing Organization Address City/[facility]/ZIP Co de Phone Number [facility] [address] [place] [phone] * Hepatitis B surface antigen, EIA (07/15/2025 8:43 AM EDT) Hepatitis B Surface Ag Negative Negative [facility] Blood Venous blood specimen / Unknown 07/15/2025 8:43 AM EDT 07/15/2025 2:52 PM EDT Namita Castañeda MD LAB BLOOD ORDERABLES Final Re sult Performing Organization Address [facility]/ZIP Co de Phone Number [facility] [address] [place] [phone] * Hepatitis B Core Antibody, Total (07/15/2025 8:43 AM EDT) Hepatitis B Core Antibody Nonreactive Nonreactive [facility] Blood Venous blood specimen / Unknown 07/15/2025 8:43 AM EDT 07/15/2025 2:52 PM EDT Namita Castañeda MD LAB BLOOD ORDERABLES Final Re sult Performing Organization Address [facility] Co de Phone Number [facility] [address] [place] [phone] * HIV-1/2 Antigen and Antibodies, Fourth Generation, with Reflexes (07/15/2025 8:43 AM EDT) Pathologist [facility] HIV AB/AG Nonreactive Nonreactive [facility] Comment:HIV-1 p24 Ag and/or HIV-1/HIV-2 Ab not detected.A test result that is nonreactive does not exclude thepossibility of exposure to or infection with HIV-1 and/orHIV-2. Nonreactive results in this assay for individualswith prior exposure to HIV-1 and/or HIV-2 may be due toantigen and antibody levels that are below the limit ofdetection of this assay.The [employer] HIV Ag/Ab Combo assay result andsupplemental assay results should be interpreted inconjunction with the patient's clinical presentation,history and other laboratory results. If the results areinconsistent with clinical evidence, additional testing issuggested to confirm the result. Blood Venous blood specimen / Unknown 07/15/2025 8:43 AM EDT 07/15/2025 2:52 PM EDT Namita Castañeda MD LAB BLOOD ORDERABLES Final Re sult Performing Organization Address [facility] Co de Phone Number [facility] [address] [place] [phone] * Hepatitis B Surface Antibody, Qualitative (07/15/2025 8:43 AM EDT) ~Hepatitis B Surface Antibody NONREACTIVE Nonreactive [facility] Comment:Nonreactive: < 8.00 mIU/mL Blood Venous blood specimen / Unknown 07/15/2025 8:43 AM EDT 07/15/2025 2:52 PM EDT Namita Castañeda MD LAB BLOOD ORDERABLES Final Re sult Performing Organization Address [facility] Co de Phone Number [facility] [address] [place] [phone] [phone] * (ABNORMAL) Lipid Panel, Standard (07/15/2025 8:43 AM EDT) Triglycerides 139 <150 mg/dL [facility] Comment:Desirable Triglyceri de: less than 150 mg/dLBorderline High Triglyceride 150-199 mg/dLHigh Triglyceride: 200-499 mg/dLVery High Triglyceride: greater than or equal to 5OO mg/dL Cholesterol 217(H) <200 mg/dL [facility] Comment:Desirable Cholestero l: less than 200 mg/dLBorderline High Cholesterol: 200-239 mg/dLHigh Cholesterol: greater than 239 mg/dL LDL Cholesterol Calculated 127(H) <100 mg/dL [facility] Comment:Desirable LDL: less than 100 mg/dLNear Optimal/Above Optimal LDL: 110- 129 mg/dLBorderline High LDL: 130-159 mg/dLHigh LDL: 160-189 mg/dLVery High LDL: greater than or equal to 190 mg/dL HDL Cholesterol 63 >40 mg/dL [facility] Comment:Desirable HDL: great er than 40 mg/dL Note: This HDL assay may give artificially low results in patients with liver disease. Blood Venous blood specimen / Unknown 07/15/2025 8:43 AM EDT 07/15/2025 2:52 PM EDT us Namita Castañeda MD LAB BLOOD ORDERABLES Final Re sult [facility] [address] [place] [phone] * (ABNORMAL) Comprehensive Metabolic Panel (07/15/2025 8:43 AM EDT) Sodium 140 135 - 145 mmol/L [facility] Potassium 4.2 3.3 - 5.1 mmol/L [facility] Chloride 106 96 - 108 mmol/L [facility] Carbon Dioxide 26 22 - 29 mmol/L [facility] Anion Gap 12 12 - 20 [facility] Urea Nitrogen (BUN) 21(H) 9 - 16 mg/dL [facility] Creatinine, Serum 0.55 0.5 - 1.4 mg/dL [facility] Estimated Glomerular Filt Rate >60 [facility] Comment:Chronic Kidney Disea se: Estimated GFR < 60 mL/min/1.11r2Sdwgdg Kidney Disease: Estimated GFR < 15 mL/min/1.73m2 Glucose 92 60 - 115 mg/dL [facility] Calcium 8.9 8.4 - 10.2 mg/dL [facility] Bilirubin, Total 0.4 0.0 - 1.0 mg/dL [facility] Aspartate Amino Transferase 27 5 - 31 U/L [facility] Alanine Aminotransferase 19 0 - 31 U/L [facility] Total Protein 7.1 6.5 - 8.0 g/dL [facility] Albumin Level 4.1 3.5 - 5.0 g/dL [facility] Alkaline Phosphatase 70 39 - 117 U/L [facility] Blood Venous blood specimen / Unknown 07/15/2025 8:43 AM EDT 07/15/2025 2:52 PM EDT us Namita Castañeda MD LAB BLOOD ORDERABLES Final Re sult [facility] [address] [place] [phone] * Hematoxylin and Eosin Stain (07/12/2025 8:31 AM EDT) 07/12/2025 8:31 AM EDT 07/12/2025 12:14 PM EDT Narrative [facility] - 07/15/2025 2:28 PM EDT ----- ------- Name: Ling Knott I Age/Sex: 55/F : 1970 Unit#: [id number] Attend Dr: Michael Sr MD Re07/12/25 Status: DEP REF Location: HO.LNP Disch: ----- ------- SPEC : [id number] RECD: 07/12/25 STATUS: ENMANUEL CAMPBELL NUM: [id number] MILLER: 07/12/[address] [facility] [address]: Michael Sr MD ENTERED: 07/12/251229 SP TYPE: Surgical OTHR DR: Nmaita Castañeda MD ORDERED: HE Stain/2, Gross Micro L4 Diagnosis Endometrium, biopsy: Fragments of inactive endometrium with pseudodecidualized stroma and necrosis consistent with progestin effect; negative for atypia, hyperplasia or malignancy. Clinical History AUB Microscopic Description Microscopic sections reviewed. Material Received EMB Gross Description Received in formalin labeled EMB are fragments of pink-casanova soft tissue mixed with mucus and clotted blood forming an aggregate measuring 2.4 x 1.7 x 0.3 cm which is wrapped in lens paper and entirely submitted for microscopic examination, multiple pieces in cassette A. ([facility]) IHC S/NG Disclaimer NOTE: Unless otherwise stated, all tissue is formalin-fixed and paraffin-embedded. Some or all of the immunohistochemical tests reported herein may have been developed and their performance characteristics determined by [facility]. They have not been cleared or approved by the U.S. Food and Drug Administration (FDA). However, the FDA has determined that such clearance or approval is not necessary. This laboratory is certified under the Clinical Laboratory Improvement Amendments of 1988 (CLIA) as qualified to perform high complexity clinical laboratory testing. Copies To: Namita Castañeda MD [address] [place] [phone] CONTINUED ON NEXT PAGE ----- ------- Name: Ling Knott I Age/Sex: 55/F : 1970 Unit#: [id number] Attend Dr: Michael Sr MD Re07/12/25 Status: DEP REF Location: [facility] Disch: ----- ------- SPEC : [id number] RECD: 07/12/25 STATUS: ENMANUEL CAMPBELL NUM: [id number] MILLER: 07/12/[address] [facility] [address]: Michael Sr MD ENTERED: 07/12/25 SP TYPE: Surgical OTHR DR: Namita Castañeda MD ORDERED: HE Stain/2, Gross Micro L4 Copies To: (Continued) Michael Sr MD [facility] [address] [place] [address] ----- ------- Signed (signature on file) Aydee Meyers MD 07/15/25 1428 ----- ------- END OF REPORT us Generic External Data Provider LAB BLOOD ORDERAB LES Final Result [facility] [address] [place] [phone] [phone] * BI Mammogram Screening Tomosynthesis Bilateral (03/27/2025 2:45 PM EDT) Anatomical Region Laterality Modality Breast Bilateral Mammography 03/27/2025 2:45 PM EDT Narrative 04/05/2025 4:26 PM EDT [address] [place] [address] Mammography Report Signed Patient: Ling Knott I MR#: [id number] : 1970 Acct:[id number] Age/Sex: 55 / F ADM Date: 03/27/25 Loc: HO.MAMMO Attending Dr: Namita Castañeda MD Ordering Physician: Namita Castañeda MD Results: 1Nega tive Date of Service: 03/27/25 Follow Up: 1 Year From Orig inal Mammogram Procedure(s): MM tomosynthesis screening BI Accession Number(s): [id number] cc: Namita Castañeda MD EXAMINATION: MM SCREENING [...] 04/05/25 1623 DD/ 1445 TD/TT: 03/27/25 [address] Worker: Procedure Note Donotuseinterpreter, Image - 04/05/[address] [place] [address] Mammography Report Signed Patient: Ling Knott IMR#: [id number] : 1970Acct:[id number] Age/Sex: 55 / FADM Date: 03/27/25 Loc: HO.MAMMO Attending Dr: Namita Castañeda MD Ordering Physician: Namita Castañeda MDResults: 1Nega tive Date of Service: 03/27/25Follow Up: 1 Year From Orig ina Mammogram Procedure(s): MM tomosynthesis screening BI Accession Number(s): [id number] cc: Namita Castañeda MD EXAMINATION: MM SCREENING [...] 04/05/25 1623 DD/ 1445 TD/TT: 03/27/25 [address] Worker: us Namita Castañeda MD [facility] BI PROCEDURES Edited Resu lt - Final * HPV mRNA E6/E7 w/Reflex to HPV Genotypes 16, 18/45 (03/15/2024 4:17 PM EDT) HPV nRNA E6/E7 Not Detected Not Detected [facility] Comment:Methodology: Transcr iption-Mediated AmplificationThis assay detects E6/E7 viral messenger RNA (mRNA) from 14high-risk HPV types (16,18,31,33,35,39,45,51,52,56,58,59,66,68).Cervical sources are required for HPV testing.If a vaginal source from a patient who has had atotal hysterectomy with removal of cervix wassubmitted, please contact the testing laboratoryfor alternative testing options.For additional information, please refer tohttp://education.wooju/faq/FAL048e0(This link if provided for information/educational purposes only.)THIS TEST WAS PERFORMED AT:[employer] [place] [phone] HERNANDEZ MD HPV mRNA E6/E7 [facility] HPV 16 RNA [facility] HPV 18/45 RNA [facility] 03/15/2024 4:17 PM EDT 03/16/2024 7:00 AM EDT us Namita Castañeda MD LAB CYTOLOGY ORDERABLES Final Result [facility] [address] [place] [address] [phone] * Pap Smear (03/15/2024 4:17 PM EDT) Swab Cervical swab / Unknown 03/15/2024 4:17 PM EDT 03/16/2024 7:00 AM EDT Narrative [facility] - 03/31/2024 5:47 PM EDT ----- ------- Name: Ling Knott I Age/Sex: 54/F : 1970 Unit#: [id number] Attend Dr: Namita Castañeda MD Re03/19/24 Status: DEP REF Location: HHCLNP Disch: ----- ------- SPEC : [id number] RECD: 03/16/24 STATUS: ENMANUEL CAMPBELL NUM: [id number] MILLER: 03/15/24-[address]: Namita Castañeda MD ENTERED: 03/16/24 SP [...] 59, 66, 68) HPV testing performed by [facility], [place], [place]. See reference laboratory portion of the EMR for entire report. Clinical Information LMP: Unknown date Previous PAP test: Unknown date, WNL Material Received ThinPrep-Vaginal/Cervical ----- ------- Signed (signature on file) Tory A Geno 03/31/24 1747 ----- ------- END OF REPORT Namita Castañeda MD LAB CYTOLOGY ORDERABLES Final Result Performing Organization Address City/State/[facility] Co de Phone Number [facility] [address] [place] [address] [phone] from Last 3 Months or Most Recently Relevant to Health Maintenance Insurance [facility] Care Teams Acct Exec Relationship Specialty Start Date End Date Namita Castañeda MD [address] [place] [phone] PCP - General Family Medicine 02/10/24
== END 2025-07-23 11:18 | disposition home or self-care (01) ==
LOC: HO.HWS 10:14
PROVIDERS: PCP Family Medicine; Visit Provider Obstetrics & Gynecology
DX: N93.9 Abnormal uterine and vaginal bleeding, unspecified (principal)
CPT/HCPCS: 98005

== ENCOUNTER 2025-10-23 09:09 | Outpatient (REF) | payer OTHER, SELFPAY ==
--- OUTSIDE RECORDS SUMMARY | 2025-10-23 10:03 | XMS_ITS | Clinical Summary ---
Author Organization [employer] Address [address] [place] [address] Care Team Providers Care Billing Clerk Name Role Phone Namita Castañeda MD Primary Care Provider [phone] Allergies No known active allergies Medications Levonorgestrel (MIRENA, 52 MG, IU)Indications: Abnormal Uterine Bleeding by Intrauterine route. Active phentermine (Adipex-P) 37.5 MG tablet Take 1 tablet (37.5 mg) by mouth before breakfast. 28 tablet 2 Active Active Problems Problem Noted Date Diagnosed Date Chronic left shoulder pain 09/11/2025 Annual physical exam 07/24/2025 Assessment & Plan (07/24/2025 11:16 AM EDT): 55 y.o. female here for annual physical examination Reviewed BMI and BP with patient. Nutritional recommendations: Recommended to decrease soda and sugary beverage consumption. Recommended at least 20 g per meal of protein to assist with satiety. Exercise recommendations: Recommended at least 150 min/week of moderate intensity exercise. BH screen done and reviewed Care Gaps reviewed IZ reviewed and discussed w/ patient Updated/reviewed PMH, Surghx, Family Hx & Social Hx Abnormal uterine bleeding 07/12/2025 History of carpal [...] recommended reduction of 20-30% of maintenance calories; plug cutting machine operator referral offered. Recommended to decrease soda [...] Encounters Date Type Department Care Team Description 09/30/2025 3:00 PM EST Nutrition [facility] DIABETES/NUTRITION [address] [place] [address] Class 2 severe obesity with serious comorbidity and body mass index (BMI) of 35.0 to 35.9 in adult, unspecified obesity type 09/30/2025 Travel 09/11/2025 9:45 AM EST Office Visit [facility] P[facility] [address] [place] [address] Namita Castañeda MD Hyperlipidemia, unspecified hyperlipidemia type (Primary Dx); Chronic left shoulder pain; Class 1 obesity without serious comorbidity with body mass index (BMI) of 32.0 to 32.9 in adult, unspecified obesity type 09/11/2025 Travel 09/10/2025 Telephone [facility] [address] [place] [address] Namita Castañeda MD Chart Prep 08/27/2025 2:00 PM EDT Clinical Support [facility] [address] [place] [address] Therese Musa RN Encounter for immunization 08/27/2025 Travel 07/30/2025 2:00 PM EDT Clinical Support [facility] [address] [place] [address] Therese Musa RN Encounter for immunization 07/30/2025 Travel 07/30/2025 Results Follow-Up [facility] [address] [place] [address] Namita Castañeda MD Cologuard colon cancer screening 07/29/2025 Orders Only [facility] [address] [place] [address] Provider, MD Carito from Last 3 Months Immunizations Immunization Administration Dates Next Due HepB-CpG 08/27/2025,07/30/2025 INFLUENZA VACCINE QUADRIVALE NT RECOMBINANT PRESERVATIVE FREE RIV4 09/02/2023 Influenza, Recombinant, injectable, preservative free 07/12/2025 Influenza, seasonal, injectable, preservative fr ee 09/14/2024 Pneumococcal Conjugate PCV 20 07/30/2025 Tdap 03/08/2023 Zoster, Recombinant 05/18/2023 Zoster, live 02/02/2023 Family History Medical History Relation Name Comments [...] Sign Reading Time Taken Comments Blood Pressure 138/64 09/11/2025 9:41 AM EST Pulse 76 09/11/2025 9:41 AM EST Temperature 36.8 C (98.3 F) 09/11/2025 9:41 AM EST Respiratory Rate 16 09/11/2025 9:41 AM EST Oxygen Saturation 98% 07/12/2025 10:27 AM EDT Inhaled Oxygen Concentration - - Weight 83.5 kg (184 lb) 10/01/2025 1:19 PM EST Height 159 cm (5' 2.6 ) 10/01/2025 1:19 PM EST Body Mass Index 33.01 10/01/2025 1:19 PM EST Plan of Treatment Upcoming Encounters Date Type Department Care Team (Late st Contact Info) Description 10/25/2025 9:45 AM EST Office Visit [facility] CHC MED & PEDS [address] [place] [address] Namita Castañeda MD [address] [place], [place] [phone] 12/16/2025 2:00 PM EST Clinical Support [facility] DIABETES/NUTRITION [address] [place], [place] [phone] Jessika Davis [address] [place] [address] Health Maintenance Due Date Last Done Comments CT Colonography 1971 Colonoscopy 1971 FIT 1971 Sigmoidoscopy 1971 Dental Oral Exam 01/14/2025 07/16/2024 Dental X-Ray: Bitewings 07/17/2025 07/16/2024 Dental Prophylaxis 07/18/2025 01/14/2025, 07/16/2024 FOBT 07/09/2026 07/09/2025, 07/09/2025 Alcohol/Substance Use Screening 07/12/2026 07/12/2025 Depression Screening 07/12/2026 07/12/2025, 07/12/2025 SDOH Screening 07/12/2026 07/12/2025 Disability Screening 07/23/2026 07/23/2025 COVID-19 Vaccine (2024-2 6 season) 2026 Postponed from 07/08/2025 (Patient Refused) Tobacco Screening 09/11/2026 09/11/2025 Mammogram 03/27/2027 03/27/2025, 03/02/2024 Dental X-Ray: Full Mouth 07/17/2027 07/16/2024 Colorectal Cancer Screening 07/09/2028 FIT DNA/Cologuard 07/09/2028 07/09/2025, 07/09/2025 Cervical Cancer Screening 03/15/2029 HPV/Cotest 03/15/2029 03/15/2024 Pap Smear 03/15/2029 03/15/2024 Lipid Panel 07/15/2030 07/15/2025, 02/11/2024 DTaP/Tdap/Td Vaccines (2 - T d or Tdap) 03/08/2033 03/08/2023 RSV Patients and Patients Aged 60 years or older (1 - 1-dose 75+ series) 2046 Zoster Vaccines Discontinued 05/18/2023, 02/02/2023 Influenza Vaccine Completed 07/12/2025, 09/14/2024, 09/02/2023 HIV Screening Completed 07/15/2025 Hepatitis C Screening Completed 07/15/2025 Pneumococcal Vaccine: 50+ Years Completed 07/30/2025 Hepatitis B Vaccines Completed 08/27/2025, 07/30/2025 HIB Vaccines Aged Out No longer eligi [...] Procedure Name Priority Date/Time Associated Diagnosis Comments HEPATITIS C AB W/REFL TO HCV RNA, QN, PCR Routine 07/15/2025 8:43 AM EDT Annual physical exam HIV 1/2 ANTIGEN/ANTIBODY, FOURTH GENERATION W/RFL Routine 07/15/2025 8:43 AM EDT Annual physical exam LIPID PANEL, STANDARD Routine 07/15/2025 8:43 AM EDT Class 2 severe obesity with serious comorbidity and body mass index (BMI) of 35.0 to 35.9 in adult, unspecified obesity type (CMS/HCC) LAB COLOGUARD COLON CANCER SCREEN Routine 07/09/2025 2:29 PM EDT BI MAMMOGRAM SCREENING TOMOSYNTHESIS BILATERAL Routine 03/27/2025 2:45 PM EDT PROPHYLAXIS - ADULT Routine 01/14/2025 9 :00 AM EDT INTRAORAL - COMPLETE SERIES OF RADIOGRAPHIC IMAGES Routine 07/16/2024 10:30 AM EDT Dental calculus Dental plaque Secondary dental caries associated with failed or defective dental druze Dental caries COMPREHENSIVE ORAL EVALUATION - NEW OR ESTABLISHED PATIENT Routine 07/16/2024 10:30 AM EDT Dental calculus Dental plaque Secondary dental caries associated with failed or defective dental druze Dental caries HPV MRNA E6/E7 REFLEX TO HPV 16, 18/45 Routine 03/15/2024 4:17 PM EDT PAP SMEAR Routine 03/15/2024 4:17 PM EDT Cervical cancer screening from Last 3 Months or Most Recently Relevant to Health Maintenance Results * Hepatitis C Antibody with Reflex to HCV, RNA, Quantitative, Real-Time PCR (07/15/2025 8:43 AM EDT) Hepatitis C Antibody Nonreactive Nonreactive [facility] Comment:Antibodies to HCV no t detected; does not exclude early acuteHCV infection. Blood Venous blood specimen / Unknown 07/15/2025 8:43 AM EDT 07/15/2025 2:52 PM EDT us Namita Castañeda MD LAB BLOOD ORDERABLES Final Re sult [facility] [address] [place] [address] [phone] * HIV-1/2 Antigen and Antibodies, Fourth Generation, with Reflexes (07/15/2025 8:43 AM EDT) HIV AB/AG Nonreactive Nonreactive [facility] Comment:HIV-1 p24 Ag and/or HIV-1/HIV-2 Ab not detected.A test result that is nonreactive does not exclude thepossibility of exposure to or infection with HIV-1 and/orHIV-2. Nonreactive results in this assay for individualswith prior exposure to HIV-1 and/or HIV-2 may be due toantigen and antibody levels that are below the limit ofdetection of this assay.The [employer] HIV Ag/Ab Combo assay result andsupplemental assay results should be interpreted inconjunction with the patient's clinical presentation,history and other laboratory results. If the results areinconsistent with clinical evidence, additional testing issuggested to confirm the result. Blood Venous blood specimen / Unknown 07/15/2025 8:43 AM EDT 07/15/2025 2:52 PM EDT us Namita Castañeda MD LAB BLOOD ORDERABLES Final Re sult [facility] [address] [place] [address] [phone] * (ABNORMAL) Lipid Panel, Standard (07/15/2025 8:43 AM EDT) Triglycerides 139 <150 mg/dL [facility] Comment:Desirable Triglyceri de: less than 150 mg/dLBorderline High Triglyceride 150-199 mg/dLHigh Triglyceride: 200-499 mg/dLVery High Triglyceride: greater than or equal to 5OO mg/dL Cholesterol 217(H) <200 mg/dL [facility] Comment:Desirable Cholestero l: less than 200 mg/dLBorderline High Cholesterol: 200-239 mg/dLHigh Cholesterol: greater than 239 mg/dL LDL Cholesterol Calculated 127(H) <100 mg/dL [facility] Comment:Desirable LDL: less than 100 mg/dLNear Optimal/Above Optimal LDL: 110- 129 mg/dLBorderline High LDL: 130-159 mg/dLHigh LDL: 160-189 mg/dLVery High LDL: greater than or equal to 190 mg/dL HDL Cholesterol 63 >40 mg/dL [facility] Comment:Desirable HDL: great er than 40 mg/dL Note: This HDL assay may give artificially low results in patients with liver disease. Blood Venous blood specimen / Unknown 07/15/2025 8:43 AM EDT 07/15/2025 2:52 PM EDT Namita Castañeda MD LAB BLOOD ORDERABLES Final Re sult [facility] [address] [place] [address] [phone] * Cologuard?? colon cancer screening (07/09/2025 2:29 PM EDT) Stool (Rectum) Historical Provider LAB MOLECULAR DIAGNOSTICS ORDERABLES Final Result * BI Mammogram Screening Tomosynthesis Bilateral (03/27/2025 2:45 PM EDT) Anatomical Region Laterality Modality Breast Bilateral Mammography 03/27/2025 2:45 PM EDT Narrative 04/05/2025 4:26 PM EDT [facility] [address] [place] [address] Mammography Report Signed Patient: Ling Knott I MR#: [id number] : 1970 Acct:[id number] Age/Sex: 55 / F ADM Date: 03/27/25 Loc: HO.MAMMO Attending Dr: Namita Castañeda MD Ordering Physician: Namita Castañeda MD Results: 1Nega tive Date of Service: 03/27/25 Follow Up: 1 Year From Orig inal Mammogram Procedure(s): MM tomosynthesis screening BI Accession Number(s): [id number] cc: Namita Castañeda MD EXAMINATION: MM SCREENING [...] 04/05/25 1623 DD/ 1445 TD/TT: 03/27/25 1500 Rasper Machine Operator: Procedure Note Donotuseinterpreter, Image - 04/05/20[facility] [address] [place] [address] Mammography Report Signed Patient: Ling Knott [facility]#: [id number] : 1970Acct:[id number] Age/Sex: 55 / FADM Date: 03/27/25 Loc: HO.MAMMO Attending Dr: Namita Castañeda MD Ordering Physician: Namita Castañeda MDResults: 1Nega tive Date of Service: 03/27/25Follow Up: 1 Year From Orig inal Mammogram Procedure(s): MM tomosynthesis screening BI Accession Number(s): [id number] cc: Namita Castañeda MD EXAMINATION: MM SCREENING [...] 04/05/25 1623 DD/ 1445 TD/TT: 03/27/25 1500 Rasper Machine Operator: us Namita Castañeda MD [facility] BI PROCEDURES Edited Resu lt - Final * HPV mRNA E6/E7 w/Reflex to HPV Genotypes 16, 18/45 (03/15/2024 4:17 PM EDT) HPV nRNA E6/E7 Not Detected Not Detected [facility] Comment:Methodology: Transcr iption-Mediated AmplificationThis assay detects E6/E7 viral messenger RNA (mRNA) from 14high-risk HPV types (16,18,31,33,35,39,45,51,52,56,58,59,66,68).Cervical sources are required for HPV testing.If a vaginal source from a patient who has had atotal hysterectomy with removal of cervix wassubmitted, please contact the testing laboratoryfor alternative testing options.For additional information, please refer [email or web address].[email or web address]/[place]686n6(This link if provided for information/educational purposes only.)THIS TEST WAS PERFORMED AT:[facility] [place] [id number] HERNANDEZ MD HPV mRNA E6/E7 TNP [facility] HPV 16 RNA TNP [facility] HPV 18/45 [facility] 03/15/2024 4:17 PM EDT 03/16/2024 7:00 AM EDT us Namita Castañeda MD LAB CYTOLOGY ORDERABLES Final Result [facility] [address] [place] [address] [phone] * Pap Smear (03/15/2024 4:17 PM EDT) Swab Cervical swab / Unknown 03/15/2024 4:17 PM EDT 03/16/2024 7:00 AM EDT Narrative [facility] - 03/31/2024 5:47 PM EDT ----- ------- Name: Ling Knott I Age/Sex: 54/F : 1970 Unit#: [id number] Attend Dr: Namita Castañeda MD Re03/19/24 Status: DEP REF Location: HO.HHCLNP Disch: ----- ------- SPEC : [id number] RECD: 03/16/24 STATUS: ENMANUEL CAMPBELL NUM: [id number] MILLER: 03/15/[address] [facility] [address]: Namita Castañeda MD ENTERED: 03/16/24 SP TYPE: Pap Smr [facility] DR: ORDERED: Pap Smear Interpretation Satisfactory for evaluation. No endocervical cells seen. Negative for intraepithelial lesion or malignancy. HPV mRNA E6/E7: NOT DETECTED This assay detects E6/E7 viral messenger RNA (mRNA) from 14 high-risk HPV types (16, 18, 31, 33, 35, 39, 45, 51, 52, 56, 58, 59, 66, 68) HPV testing performed by [employer], [place], [place]. See reference laboratory portion of the EMR for entire report. Clinical Information LMP: Unknown date Previous PAP test: Unknown date, WNL Material Received ThinPrep-Vaginal/Cervical ----- ------- Signed (signature on file) Tory Lora 03/31/24 1747 ----- ------- END OF REPORT us Namita Castañeda MD LAB CYTOLOGY ORDERABLES Final Result [facility] [address] [place] [phone] from Last 3 Months or Most Recently Relevant to Health Maintenance Insurance [facility] - [facility] Care Teams Billing Clerk Relationship Specialty Start Date End Date Namita Castañeda MD [address] [place] [address] PCP - General Family Medicine 02/10/24 Michael Sr MD Consulting Physician Gynecology 09/11/25 Christa Jones MD Consulting Physician Orthopaedic Surgery 09/11/25
--- OUTSIDE RECORDS SUMMARY | 2025-10-23 10:04 | XMS_ITS | Encounter Summary ---
Author Organization [email or web address] Address [address] [place] [address] [address] [place] [address] Care Team Providers Care Title Curative Specialist Name Role Phone Namita Castañeda MD Primary Care Provider [phone] Reason for Referral * Consultation (Routine) - Closed Specialty Diagnoses / Procedures Referred By Daya campos Referred To Contact Diagnoses Left median nerve neuropathy Eleonora Lyles MD [address] [place] [address] Phone: tel: fax: Christa Jones [address] [place] [address] Phone: tel: fax: Referral ID Status Reason Start Date Expiration Date V isits Requested Visits Authorized [id number] Closed Specialty Services Required 08/30/2024 08/30/2025 1 1 Encounter Details Date Type Department Care Team (Late st Contact Info) Description 08/30/2024 Orders Only [facility] MEDICINE [address] [place], [place] [phone] Eleonora Lyles MD [address] [place], [place] [phone] Left median nerve neuropathy (Primary Dx) Social [...] Description 10/25/2025 9:45 AM EST Office Visit [facility] CHC MED & PEDS [address] [place] [address] Namita Castañeda MD [address] [place] [address] 12/16/2025 2:00 PM EST Clinical Support [facility] DIABETES/NUTRITION [address] [place] [address] [place] [address] Scheduled Referrals Name Type Priority Associated Diagnoses [...] documented as of this encounter Care Teams Title Curative Specialist Relationship Specialty Start Date End Date Namita Castañeda MD [address] [place] [address] PCP - General Family Medicine 02/10/24 Michael Sr MD Consulting Physician Gynecology 09/11/25 Christa Jones MD Consulting Physician Orthopaedic Surgery 09/11/25 documented as of this encounter
--- OUTSIDE RECORDS SUMMARY | 2025-10-23 10:04 | XMS_ITS | Clinical Summary ---
Author Organization [facility] Address [address] [place] [phone] Phone Care Team Providers Care Medical Technologist Chief Name Role Phone Namita Castañeda MD Primary Care Provider [phone] Allergies No known active allergies Medications No [...] on file Sexual Orientation Not on file Last Filed Vital Signs [...] Last Done Comments Breast Cancer Screening 1970 Colorectal Cancer Screening: Colonoscopy 1971 DTaP,Tdap,and Td Vaccines (1 - Tdap) 1990 Hepatitis B Vaccines (1 of 3 - 19+ 3-dose series) 1990 Pneumococcal Vaccine: 50+ Years (1 of 1 - PCV) 2021 Zoster Vaccines (1 of 2) 2021 HIV Screening 09/13/2024 Hepatitis C Screening 09/13/2024 Social Influencers of Health Screening 09/13/2024 Depression Screening 11/07/2024 COVID-19 Vaccine (1 - 2024-2 6 season) 2025 Cervical Cancer Screening: P ap Smear 03/15/2027 03/15/2024 Cholesterol Screening (Lipid Panel) 02/10/2029 02/11/2024 RSV Immunization Adult Patients (1 - 1-dose 75+ series) 2046 Influenza Vaccine Completed 07/12/2025, 09/14/2024 HIB Vaccines [...] be in a plan of exercise Insurance [facility] Advance Directives * Full Code [...] currently active code status orders. Care Teams Medical Technologist Chief Relationship Specialty Start Date End Date Namita Castañeda MD [address] [place] [address] PCP - General Family Medicine 09/13/24
--- OUTSIDE RECORDS SUMMARY | 2025-10-23 10:04 | XMS_ITS | Encounter Summary ---
Author Organization [employer] Address [address] [place] [address] Care Team Providers Care Retail Furniture Sales Name Role Phone Namita Castañeda MD Primary Care Provider [phone] Encounter Details Date Type Department Care Team (Late st Contact Info) Description 07/29/2025 Orders Only [facility] [address] [place] [address] Provider, MD Carito Social History Tobacco Use [...] Description 10/25/2025 9:45 AM EST Office Visit [facility] [address] [place] [address] Namita Castañeda MD [address] [place] [address] 12/16/2025 2:00 PM EST Clinical Support [facility] DIABETES/NUTRITION [address] [place] [address] Jessika Davis, SOLE [address] [place] [address] documented as of this encounter Procedures Procedure Name Priority Date/Time Associated Diagnosis Comments LAB COLOGUARD COLON CANCER SCREEN Routine 07/09/2025 2:29 PM EDT documented in this encounter Results * Cologuard?? colon cancer screening (07/09/2025 2:29 PM EDT) Stool (Rectum) Historical Provider LAB MOLECULAR DIAGNOSTICS ORDERABLES Final Result documented in this encounter Visit Diagnoses Not on filedocumented in this encounter Additional Health Concerns Assessment Noted Time PHQ-9 Depression Total Score: 0 07/12/20 25 10:28 AM EDT documented as of this encounter Care Teams Retail Furniture Sales Relationship Specialty Start Date End Date Namita Castañeda MD [address] [place] [address] PCP - General Family Medicine 02/10/24 Michael Sr MD Consulting Physician Gynecology 09/11/25 Christa Jones MD Consulting Physician Orthopaedic Surgery 09/11/25 documented as of this encounter
--- OUTSIDE RECORDS SUMMARY | 2025-10-23 10:04 | XMS_ITS | Encounter Summary ---
Author Organization [employer] Address [address] [facility] [address] [facility] [address] [place] [address] Care Team Providers Care Lab Scientist Name Role Phone Namita Castañeda MD Primary Care Provider [phone] Encounter Details Date Type Department Care Team (Late st Contact Info) Description 12/07/2024 Orders Only [facility] [address] [place], [place] [phone] Provider, MD Carito Social History Tobacco Use [...] Description 10/25/2025 9:45 AM EST Office Visit [facility] MED & PEDS [address] [place], [place] [phone] Namita Castañeda MD [address] [place], [place] [phone] 12/16/2025 2:00 PM EST Clinical Support [facility] DIABETES/NUTRITION [address] [place] [address] [place] [address] documented as of this encounter Procedures Procedure [...] documented as of this encounter Care Teams Lab Scientist Relationship Specialty Start Date End Date Namita Castañeda MD [address] [place] [address] PCP - General Family Medicine 02/10/24 Michael Sr MD Consulting Physician Gynecology 09/11/25 Christa Jones MD Consulting Physician Orthopaedic Surgery 09/11/25 documented as of this encounter
[2025-10-23 15:58] LABS: Cholesterol 188 mg/dL (<200); HDL Cholesterol 64 mg/dL (>40); Triglycerides 80 mg/dL (<150)
== END 2025-10-23 09:10 | disposition home or self-care (01) ==
LOC: HO.CHCLDS 09:09
PROVIDERS: Visit Provider Family Medicine
DX: E78.5 Hyperlipidemia, unspecified (principal)
CPT/HCPCS: 36415; 80061